=== PATIENT | male | born 2000 | race Caucasian/White ===

== ENCOUNTER 2019-08-04 12:12 | Inpatient (IN) | payer BC, OTHER ==
[~2019-08-04] VITALS: Ht 180.3 cm; Wt 73.8 kg
[2019-08-04] VITALS (11 sets, daily range): BP systolic 69–119; BP diastolic 35–62
[2019-08-04] MEDS ORDERED: SODIUM BICARB ADULT 8.4% 50 MEQ/50 ML DISP.SYRIN. IV STA (12:13)
[2019-08-04] MEDS ORDERED: DEXTROSE 50% 25 GM / 50ML DISP.SYRIN. IV PRN ×2 (13:00→13:15)
--- NOTE | 2019-08-04 13:03 | RAD ---
EXAM: CHEST AP ONLY INDICATION: Endotracheal tube verification.. TECHNIQUE: Single view COMPARISON: None FINDINGS: Endotracheal intubation with the ET tube terminating approximately 4.8 cm above the mike. Enteric tube passes below the diaphragms, tip terminating in the gastric fundus. The heart size is normal. The great vessels appear unremarkable. There is no hilar or mediastinal mass. Lungs show bilateral near confluent ill-defined airspace opacities with relative sparing of the bilateral lung apices. There is no pleural effusion or pneumothorax. There are no significant osseous abnormalities. IMPRESSION: 1. Bilateral airspace opacities with satisfactory endotracheal intubation, ET tube terminating 4.8 cm above the mike. Enteric tube also appears in good position in the gastric fundus. Electronically signed by: Geovanni Arevalo MD (08/04/2019 12:59 PM) [id number]
[2019-08-04] MEDS: IV DEXTROSE 5% 1,000 ML IV SCH ×2 (13:15→21:23)
[2019-08-04 13:20] LABS: BASE EXCESS ABG -4 mmol/L (-3-3); HCO3 ABG 24 mmol/L (21-28); PCO2 ABG 54 mmHg (35-46); SAT O2 ABG 84 % (92-99)
[2019-08-04 13:49] LABS: FIO2 ABG 100
--- NOTE | 2019-08-04 14:09 | HP ---
ADMIT DATE: 08/04/2019 HISTORY OF PRESENT ILLNESS: The patient is a 19-year-old male patient who was brought to the Emergency Room of [facility] by EMS from a local resident due to report of drug overdose. It was reported that the patient may be overdosed on Xanax. His friend who was partying with him called the police to report of drug overdose. EMS responded they came to the scene and found one person pronounced at the scene, the patient was found to be unresponsive; however, he was still breathing laborly and without palpable pulses. The patient was given 2 mg of Narcan by EMS, but he has not responded. EMS was managed to bag him with oxygen and brought him to the Emergency Room for evaluation. EMS reported en route, the patient went into pulseless electrical activity with no pulse. They managed to put an IV in him and started CPR. EMS brought him to the room with CPR in progress. The patient's upper torso covered with vomitus, food particles and coffee-ground emesis coming out from his mouth and nose. The patient was NPA and no pulses upon arrival. He was resuscitated about 15 minutes and his pulse returned and obviously was intubated, has had a central line and his x-ray showed that the patient's endotracheal tube was in place and the tip is situated about 4 cm above the level of the mike and had an NG tube is in place with the tip seen in the gastroesophageal junction. There is moderate gaseous distention of the stomach, moderate to severe bilateral perihilar pulmonary edema, and lung infiltrates are seen. No pleural effusion or pneumothorax is evident. Heart size and mediastinum and pulmonary vasculature are unremarkable. His lab work showed he has leukocytosis of 13,600, hemoglobin 17.4, hematocrit 55 and MCV was 96, and platelet count 318,000. His initial blood gases showed a pH of 6.82, pCO2 of 119, pO2 of 47, bicarbonate 20, and oxygen saturation was only 45 on FiO2 of 100%. His second blood gases showed a pH of 7.13, pCO2 of 57, pO2 of 88, bicarbonate 19 and oxygen saturation was 93% on FiO2 of 100%. His chemistry showed extreme hypernatremia and his creatinine was 2.6. His troponin was 0.685. His prothrombin time was 13.8, INR 1.3, aPTT was 39. Urinalysis was unremarkable; however, toxic screen was positive for benzodiazepine, cocaine, and cannabinoids. He was transferred to [facility] to continue with ventilatory management and obviously will start him on IV antibiotics, IV fluid. PAST MEDICAL HISTORY: Unremarkable. PAST SURGICAL HISTORY: Unobtainable. ALLERGIES: Unknown. FAMILY HISTORY AND SOCIAL HISTORY: Also unobtainable as the patient is intubated and extremely encephalopathic. According to the Emergency Room physician, his pupils were dilated and reactive about 7 mm initially and after he was intubated it became reactive and by the time I saw him in the [facility] there were pinpoint pupils. PHYSICAL EXAMINATION: GENERAL: When I examined him, he looked well and was clearly in no apparent respiratory distress. No pallor, jaundice, cyanosis or thyromegaly. No jugular venous distention. No lower limb edema. VITAL SIGNS: His heart rate on arrival to the Emergency Room of [facility] was 96, blood pressure was 149/85, temperature was 97.4, and respiratory rate was 20, and oxygen saturation was 98% on the vent. HEAD, EYES, EARS, NOSE AND THROAT: Showed normocephalic, atraumatic. He has orotracheal in place. He has also an orogastric tube in place. NECK: Supple. HEART: Showed normal first and second heart sounds. No gallop or murmur. CHEST: Clear to auscultation. No crepitation or rhonchi. ABDOMEN: Distended, soft, nontender. NEUROLOGIC: He is Sugey coma scale of 3. LABORATORY DATA: His lab work showed that his white cell count was 13,600, hemoglobin 17, hematocrit 55, MCV 96, and platelet count 318,000. His prothrombin time, INR and aPTT are slightly elevated. His chemistry showed a serum sodium 152, potassium 4.8, chloride 108, bicarbonate 28, anion gap of 15, BUN 16, creatinine 2.6, estimated GFR was 31 mL per minute. His glucose was 89, calcium was 9.2, magnesium was 2.9. Total bilirubin, AST, ALT, alkaline phosphatase were normal. His CK was 174. Troponin was high at 0.685. Total protein was 5, albumin was 2.8. Urinalysis was unremarkable. The urine was cloudy yellow with a pH of 5, specific gravity of 1.030. There was small amount of protein, large amount of glucose. The urine was negative for ketones, blood, nitrite and bilirubin, negative for leukocyte esterase, 1-2 rbc's, 1-4 wbc's and very few bacteria. His toxic screen was positive for benzodiazepine, cocaine, cannabinoids, negative for alcohol, amphetamine with amphetamine barbiturate, opiates and methadone. IMAGING: His chest x-ray showed that the endotracheal tube is in place and the tip is situated 4 cm above the level of the mike. NG tube is in place and the tip was seen at the gastroesophageal junction. There is moderate gaseous distention of the stomach, moderate to severe bilateral perihilar pulmonary edema and lung infiltrates are seen. No pleural effusion or pneumothorax is evident. Heart size and mediastinum and pulmonary vasculature is unremarkable. ASSESSMENT AND PLAN: In summary, this is a 19-year-old who was admitted with acute respiratory failure, hypoxic, hypercapnic, he also sustained outside of the hospital cardiac arrest and was in pulseless electrical activity as polysubstance abuse, acute kidney injury, aspiration pneumonia and he has also large amount of glucose in his urine raising the possibility that he might also be diabetic. My plan is to repeat all his lab work here including his blood gases, CBC, CMP, lactic acid and procalcitonin and I have consulted the associate property manager, Infectious Disease. I will start him empirically on IV antibiotic in the form of Zosyn and vancomycin or Zyvox given his impaired kidney function. RACHEL PAYNE MD DR: EDITH/chauncey JOB#: [id number] / [id number]
[2019-08-04 14:56] LABS: HEMATOCRIT 51.9 % (39.0-53.0); HEMOGLOBIN 17.3 g/dL (13.0-17.5); RED BLOOD COUNT 5.73 x10^6/uL (4.30-5.70); RED CELL DISTRIBUTION WIDTH 13.6 % (11.5-14.5); WHITE BLOOD COUNT 3.5 x10^3/uL (4.0-11.0)
[2019-08-04 15:17] LABS: GFR 42.8; POTASSIUM 4.7 mmol/L (3.5-5.1)
[2019-08-04 15:23] LABS: ALBUMIN 2.4 g/dL (3.4-5.0); ALBUMIN/GLOBULIN RATIO 1.3 (1.0-1.7); TOTAL BILIRUBIN 0.3 mg/dL (0.2-1.0); TOTAL PROTEIN 4.3 g/dL (6.4-8.2)
[2019-08-04] MEDS: MEROPENEM 500 MG in IV NORMAL SALINE 50ML 50 ML IV SCH ×2 (15:26→21:22)
--- NOTE | 2019-08-04 15:31 | CONS ---
DATE OF CONSULTATION: PULMONARY CONSULTATION ATTENDING PHYSICIAN: Dr. Link. REASON FOR CONSULTATION: Respiratory arrest, drug overdose, likely anoxic encephalopathy. HISTORY OF PRESENT ILLNESS: The patient is a 19-year-old who has history of substance abuse including marijuana. He was brought into the hospital after EMS was called where they found one person at the scene. The patient was still breathing laborly and without pulses. He received 2 mg of Narcan by EMS, but did not respond. He was bagged with oxygen and brought to the Emergency Room. The patient went into PEA arrest. He received CPR, which was prolonged. The patient had his upper body covered with vomitus and food particles and coffee-ground emesis. The patient had no pulses on arrival. He was resuscitated after about 15 minutes and has had return of circulation. His chest x-ray showed diffuse bilateral perihilar infiltrates with no significant pleural effusions. He was very acidotic at [place]. I was told that pH of 6.8 and a pCO2 was high. His ABGs which were done here showed a pH of 7.28, pCO2 of 54 and a pO2 which was not detected by the ABG. Saturation of 92%. The patient is currently on assist control, rate of 24, tidal volume 500 and a PEEP of 10, which I have just increased to 12. His urine output has decreased. He received almost 3.5 liters of fluids. His glucose was 47, now 76. He is on low dose Levophed as well. His mother is at the bedside who gave much of the history. PAST MEDICAL HISTORY: History of substance abuse. PAST SURGICAL HISTORY: None. ALLERGIES: None that were recorded. MEDICATIONS: Reviewed as listed in the MRAD including meropenem and Zyvox. SOCIAL HISTORY: History of marijuana use. PHYSICAL EXAMINATION: GENERAL: He is intubated and sedated. HEENT: His pupils are small and sluggish to react. He does have spontaneous respirations and does have a gag. LUNGS: With few rhonchi anteriorly. CARDIOVASCULAR: With a regular rate. ABDOMEN: Soft. EXTREMITIES: With no pitting edema. LABORATORY DATA: Reviewed. ABG discussed in my history of present illness. His labs from [facility] were reviewed. Labs at our facility are pending. IMPRESSION: 1. Acute hypoxic respiratory failure secondary to respiratory arrest from drug overdose and highly suspected aspiration pneumonia/ ALI/ARDS with severe hypoxia. 2. Drug overdose including cocaine, marijuana and Xanax. 3. Highly suspected anoxic brain injury. The patient is clinically not brain . Has preserved brain stem reflexes. 4. Highly suspected aspiration pneumonia contributing to severe hypoxia. 5. Decreased urine output and acute kidney injury. 6. Shock. Status post fluid resuscitation. RECOMMENDATIONS: 1. We will continue with present assist control mode, 100% FiO2. I have increased the PEEP to 12. 2. Follow ABGs and make necessary adjustments. 3. Continue broad-spectrum antibiotics, Zyvox and meropenem. Follow ID recommendations. 4. Monitor urine output. Status post fluid resuscitation. 5. Stress ulcer and DVT prophylaxis. 6. Once the patient's oxygenation status is stable, we will consider doing CT of the head. 7. Neurology consultation. 8. This patient likely has anoxic encephalopathy. We will make that assessment once other diagnoses are excluded. 9. I have discussed with the patient's mother in detail. Discussed with RN and RT. Critical care time 40 minutes. JEAN PIERRE TUTTLE MD DR: FILOMENA/chauncey JOB#: [id number] / [id number] MEIR
[2019-08-04] MEDS: MIDAZOLAM 100mg/100ml NS BAG 100 ML IV PRN (15:35)
[2019-08-04 16:37] LABS: BASE EXCESS ABG -3 mmol/L (-3-3); HCO3 ABG 25 mmol/L (21-28); PCO2 ABG 55 mmHg (35-46); PO2 ABG 69 mmHg (85-108); SAT O2 ABG 93 % (92-99)
[2019-08-04 16:39] LABS: FIO2 ABG 100
[2019-08-04] MEDS ORDERED: FUROSEMIDE 20 MG/2 ML VIAL. IVP ONE (17:00)
[2019-08-04] MEDS: FAMOTIDINE 20 MG/2 ML VIAL IVP SCH (21:17)
[2019-08-04] MEDS: HEPARIN for SUB-Q USE 5,000 UNIT/ML VIAL. SQ SCH (21:19)
[2019-08-04] MEDS: NOREPINEPHRINE VIAL 8 MG in IV DEXTROSE 5% 250 ML IV PRN (22:48)
--- NOTE | 2019-08-04 23:50 | NUR ---
Pt assessed and this RN observed that neuro status was very diminished. Corneal reflex absent BL, painful stimuli unable to elicit response from upper and lower extremities. Cough and gag reflexes were very diminished. BL pupils were very sluggish and rated as 1. Provider paged at 2138, provider paged back at 2140. Provider updated on pt status and current labs and medical interventions as well as vital signs. Provider ordered CK to be tested in the AM with morning labs. Provider approved of this RN consulting neurology provider Dr. Miller. Neurology provider paged at 2151, provider paged back at 2156. Neurology provider updated on neuro assessment findings of pt. Provider acknowledged RN's findings, and asked if this RN could see what the findings were from the CT that was supposed to be performed. This RN informed the provider that this RN could not find evidence of a CT scan, provider informed this RN that he would look into it. Neurology called back and told this RN that he looked in the system and saw that there was never a CT of the pt's head done, like he originally requested. Provider was unsure of how to navigate obtaining a CT now due to the patients high demanding respiratory situation. This RN told provider that he would confer with RT to devise a plan and investigate options. RT paged at 2213, and RT advised that bagging the pt with a BVM attached to a peep valve would work the best. CT paged at 2218 and informed of plan to have CT performed for pt, CT acknowledged. Pt taken to CT at 2330 accompanied by two MEDIA PRODUCTION OPERATOR's and one RT. CT for pt undergone without issue, no issues during transport, VSS to and from destination. Pt settled back into CVICU room 270 and attached to monitor and equipment, will continue to assess and monitor for any additional changes in pt condition.
--- NOTE | 2019-08-04 23:51 | RAD ---
RS Compliance Statement: One or more of the following individualized dose reduction techniques were utilized for this examination: 1. Automated exposure control 2. Adjustment of the mA and/or kV according to patient size 3. Use of iterative reconstruction technique CT HEAD WITHOUT CONTRAST History: Altered mental status, code, overdose. Comparison: None. Procedure: Axial images are obtained of the head from the skull base through the vertex without IV contrast. Findings: The ventricles and sulci are normal for the patient's age. No mass-effect, midline shift, hemorrhage, extra-axial fluid collection, or obvious acute infarction is identified. Basilar cisterns are patent. Bone windows demonstrate no acute calvarial abnormality. There is severe mucosal thickening of the bilateral maxillary sinuses. There is an air-fluid level in the left maxillary sinus. There is severe mucosal thickening of the sphenoid sinuses. Mild mucosal thickening of the posterior ethmoid sinuses. Mastoid air cells are well aerated. IMPRESSION: 1. No acute intracranial abnormality. 2. Paranasal sinus disease. Left maxillary sinus air-fluid level suggests acute sinusitis. Electronically signed by: Cyril Bates MD (08/04/2019 11:48 PM) [id number]
[2019-08-05] VITALS (24 sets, daily range): BP systolic 82–179; BP diastolic 51–100
[2019-08-05] MEDS: MEROPENEM 500 MG in IV NORMAL SALINE 50ML 50 ML IV SCH ×4 (06:12→23:26)
[2019-08-05] MEDS: HEPARIN for SUB-Q USE 5,000 UNIT/ML VIAL. SQ SCH ×3 (06:20→21:32)
[2019-08-05 06:27] LABS: BASO % 0 % (0-3); EOS % 0 % (0-3); HEMATOCRIT 48.4 % (39.0-53.0); HEMOGLOBIN 16.1 g/dL (13.0-17.5); LYMPH # 1.4 x10^3/uL (1.0-4.8); LYMPH % 7 % (24-48); MEAN CORPUSCULAR HEMOGLOBIN 30 pg (25-35); MEAN CORPUSCULAR HGB CONC 33 g/dL (31-37); MEAN CORPUSCULAR VOLUME 90 fL (79-100); MONO # 1.3 x10^3/uL (0.0-1.1); MONO % 7 % (0-9); NEUT # 16.3 x10^3/uL (1.8-7.7); NEUT % 86 % (31-73); PLATELET COUNT 210 x10^3/uL (140-400); RED BLOOD COUNT 5.38 x10^6/uL (4.30-5.70); RED CELL DISTRIBUTION WIDTH 13.5 % (11.5-14.5); WHITE BLOOD COUNT 18.9 x10^3/uL (4.0-11.0)
[2019-08-05 06:42] LABS: CALCIUM 8.1 mg/dL (8.5-10.1); CREATININE 1.8 mg/dL (0.7-1.3); GFR 48.3; MAGNESIUM 1.3 mg/dL (1.8-2.4); PHOSPHORUS 5.1 mg/dL (2.6-4.7); POTASSIUM 4.9 mmol/L (3.5-5.1)
--- NOTE | 2019-08-05 07:06 | PDOC ---
PULMONARY PROGRESS NOTES Subjective remains on vent @ 100%, PEEP 12 remains on low dose levophed nursing reports no overnight concerns Nursing reports minimal movement of bilateral toes withdraws to painful stimuli has gag Vitals Vital Signs Date Time Temp Pulse Resp B/P (MAP) Pulse Ox O2 Delivery O2 Flow Rate FiO2 08/05/19 05:58 99 Ventilator 08/05/19 03:00 82 24 121/56 (77) 08/05/19 00:00 99.8 99.8 Comments intubated/ sedated Lungs: Clear Cardiovascular: S1 Abdomen: Soft Neuro Exam: Alert Extremities: No Edema Skin: Warm Labs Laboratory Tests Test 08/04/19 13:10 08/04/19 13:15 08/04/19 13:30 08/04/19 14:00 Glucose (Fingerstick) 47 mg/dL (70-99) 78 mg/dL (70-99) O2 Saturation 84 % (92-99) Arterial Blood pH 7.28 (7.35-7.45) Arterial Blood pCO2 at Patient Temp 54 mmHg (35-46) Arterial Blood HCO3 24 mmol/L (21-28) Arterial Blood Base Excess -4 mmol/L (-3-3) FiO2 100 White Blood Count 3.5 x10^3/uL (4.0-11.0) Red Blood Count 5.73 x10^6/uL (4.30-5.70) Hemoglobin 17.3 g/dL (13.0-17.5) Hematocrit 51.9 % (39.0-53.0) Mean Corpuscular Volume 91 fL (79-100) Mean Corpuscular Hemoglobin 30 pg (25-35) Mean Corpuscular Hemoglobin Concent 33 g/dL (31-37) Red Cell Distribution Width 13.6 % (11.5-14.5) Platelet Count 240 x10^3/uL (140-400) Sodium Level 145 mmol/L (136-145) Potassium Level 4.7 mmol/L (3.5-5.1) Chloride Level 108 mmol/L (98-107) Carbon Dioxide Level 33 mmol/L (21-32) Anion Gap 4 (6-14) Blood Urea Nitrogen 19 mg/dL (8-26) Creatinine 2.0 mg/dL (0.7-1.3) Estimated GFR (Cockcroft-Gault) 42.8 BUN/Creatinine Ratio 10 (6-20) Glucose Level 101 mg/dL (70-99) Calcium Level 8.0 mg/dL (8.5-10.1) Total Bilirubin 0.3 mg/dL (0.2-1.0) Aspartate Amino Transf (AST/SGOT) 68 U/L (15-37) Alanine Aminotransferase (ALT/SGPT) 53 U/L (16-63) Alkaline Phosphatase 72 U/L (46-116) Lactate Dehydrogenase 344 U/L (85-227) Troponin I Quantitative 1.645 ng/mL (0.000-0.055) Total Protein 4.3 g/dL (6.4-8.2) Albumin 2.4 g/dL (3.4-5.0) Albumin/Globulin Ratio 1.3 (1.0-1.7) Procalcitonin 12.04 ng/mL (0.00-0.10) Test 08/04/19 16:32 08/05/19 06:05 08/05/19 06:09 O2 Saturation 93 % (92-99) Arterial Blood pH 7.28 (7.35-7.45) Arterial Blood pCO2 at Patient Temp 55 mmHg (35-46) Arterial Blood pO2 at Patient Temp 69 mmHg (85-108) Arterial Blood HCO3 25 mmol/L (21-28) Arterial Blood Base Excess -3 mmol/L (-3-3) FiO2 100 White Blood Count 18.9 x10^3/uL (4.0-11.0) Red Blood Count 5.38 x10^6/uL (4.30-5.70) Hemoglobin 16.1 g/dL (13.0-17.5) Hematocrit 48.4 % (39.0-53.0) Mean Corpuscular Volume 90 fL (79-100) Mean Corpuscular Hemoglobin 30 pg (25-35) Mean Corpuscular Hemoglobin Concent 33 g/dL (31-37) Red Cell Distribution Width 13.5 % (11.5-14.5) Platelet Count 210 x10^3/uL (140-400) Neutrophils (%) (Auto) 86 % (31-73) Lymphocytes (%) (Auto) 7 % (24-48) Monocytes (%) (Auto) 7 % (0-9) Eosinophils (%) (Auto) 0 % (0-3) Basophils (%) (Auto) 0 % (0-3) Neutrophils # (Auto) 16.3 x10^3/uL (1.8-7.7) Lymphocytes # (Auto) 1.4 x10^3/uL (1.0-4.8) Monocytes # (Auto) 1.3 x10^3/uL (0.0-1.1) Eosinophils # (Auto) 0.0 x10^3/uL (0.0-0.7) Basophils # (Auto) 0.0 x10^3/uL (0.0-0.2) Sodium Level 139 mmol/L (136-145) Potassium Level 4.9 mmol/L (3.5-5.1) Chloride Level 101 mmol/L (98-107) Carbon Dioxide Level 32 mmol/L (21-32) Anion Gap 6 (6-14) Blood Urea Nitrogen 17 mg/dL (8-26) Creatinine 1.8 mg/dL (0.7-1.3) Estimated GFR (Cockcroft-Gault) 48.3 Glucose Level 111 mg/dL (70-99) Calcium Level 8.1 mg/dL (8.5-10.1) Phosphorus Level 5.1 mg/dL (2.6-4.7) Magnesium Level 1.3 mg/dL (1.8-2.4) Creatine Kinase 263 U/L (39-308) Troponin I Quantitative 2.485 ng/mL (0.000-0.055) Glucose (Fingerstick) 115 mg/dL (70-99) Laboratory Tests Test 08/04/19 13:10 08/04/19 13:15 08/04/19 13:30 08/04/19 14:00 Glucose (Fingerstick) 47 mg/dL (70-99) 78 mg/dL (70-99) O2 Saturation 84 % (92-99) Arterial Blood pH 7.28 (7.35-7.45) Arterial Blood pCO2 at Patient Temp 54 mmHg (35-46) Arterial Blood HCO3 24 mmol/L (21-28) Arterial Blood Base Excess -4 mmol/L (-3-3) FiO2 100 White Blood Count 3.5 x10^3/uL (4.0-11.0) Red Blood Count 5.73 x10^6/uL (4.30-5.70) Hemoglobin 17.3 g/dL (13.0-17.5) Hematocrit 51.9 % (39.0-53.0) Mean Corpuscular Volume 91 fL (79-100) Mean Corpuscular Hemoglobin 30 pg (25-35) Mean Corpuscular Hemoglobin Concent 33 g/dL (31-37) Red Cell Distribution Width 13.6 % (11.5-14.5) Platelet Count 240 x10^3/uL (140-400) Sodium Level 145 mmol/L (136-145) Potassium Level 4.7 mmol/L (3.5-5.1) Chloride Level 108 mmol/L (98-107) Carbon Dioxide Level 33 mmol/L (21-32) Anion Gap 4 (6-14) Blood Urea Nitrogen 19 mg/dL (8-26) Creatinine 2.0 mg/dL (0.7-1.3) Estimated GFR (Cockcroft-Gault) 42.8 BUN/Creatinine Ratio 10 (6-20) Glucose Level 101 mg/dL (70-99) Calcium Level 8.0 mg/dL (8.5-10.1) Total Bilirubin 0.3 mg/dL (0.2-1.0) Aspartate Amino Transf (AST/SGOT) 68 U/L (15-37) Alanine Aminotransferase (ALT/SGPT) 53 U/L (16-63) Alkaline Phosphatase 72 U/L (46-116) Lactate Dehydrogenase 344 U/L (85-227) Troponin I Quantitative 1.645 ng/mL (0.000-0.055) Total Protein 4.3 g/dL (6.4-8.2) Albumin 2.4 g/dL (3.4-5.0) Albumin/Globulin Ratio 1.3 (1.0-1.7) Procalcitonin 12.04 ng/mL (0.00-0.10) Test 08/04/19 16:32 08/05/19 06:05 08/05/19 06:09 O2 Saturation 93 % (92-99) Arterial Blood pH 7.28 (7.35-7.45) Arterial Blood pCO2 at Patient Temp 55 mmHg (35-46) Arterial Blood pO2 at Patient Temp 69 mmHg (85-108) Arterial Blood HCO3 25 mmol/L (21-28) Arterial Blood Base Excess -3 mmol/L (-3-3) FiO2 100 White Blood Count 18.9 x10^3/uL (4.0-11.0) Red Blood Count 5.38 x10^6/uL (4.30-5.70) Hemoglobin 16.1 g/dL (13.0-17.5) Hematocrit 48.4 % (39.0-53.0) Mean Corpuscular Volume 90 fL (79-100) Mean Corpuscular Hemoglobin 30 pg (25-35) Mean Corpuscular Hemoglobin Concent 33 g/dL (31-37) Red Cell Distribution Width 13.5 % (11.5-14.5) Platelet Count 210 x10^3/uL (140-400) Neutrophils (%) (Auto) 86 % (31-73) Lymphocytes (%) (Auto) 7 % (24-48) Monocytes (%) (Auto) 7 % (0-9) Eosinophils (%) (Auto) 0 % (0-3) Basophils (%) (Auto) 0 % (0-3) Neutrophils # (Auto) 16.3 x10^3/uL (1.8-7.7) Lymphocytes # (Auto) 1.4 x10^3/uL (1.0-4.8) Monocytes # (Auto) 1.3 x10^3/uL (0.0-1.1) Eosinophils # (Auto) 0.0 x10^3/uL (0.0-0.7) Basophils # (Auto) 0.0 x10^3/uL (0.0-0.2) Sodium Level 139 mmol/L (136-145) Potassium Level 4.9 mmol/L (3.5-5.1) Chloride Level 101 mmol/L (98-107) Carbon Dioxide Level 32 mmol/L (21-32) Anion Gap 6 (6-14) Blood Urea Nitrogen 17 mg/dL (8-26) Creatinine 1.8 mg/dL (0.7-1.3) Estimated GFR (Cockcroft-Gault) 48.3 Glucose Level 111 mg/dL (70-99) Calcium Level 8.1 mg/dL (8.5-10.1) Phosphorus Level 5.1 mg/dL (2.6-4.7) Magnesium Level 1.3 mg/dL (1.8-2.4) Creatine Kinase 263 U/L (39-308) Troponin I Quantitative 2.485 ng/mL (0.000-0.055) Glucose (Fingerstick) 115 mg/dL (70-99) Comments CT head - 08/04/2019 IMPRESSION: 1. No acute intracranial abnormality. 2. Paranasal sinus disease. Left maxillary sinus air-fluid level suggests acute sinusitis. CXR-- 08/05/2019 IMPRESSION: 1. Bilateral airspace opacities with satisfactory endotracheal intubation, ET tube terminating 4.8 cm above the mike. Enteric tube also appears in good position in the gastric fundus. Impression . IMPRESSION: 1. Acute hypoxic respiratory failure secondary to respiratory arrest from drug overdose and highly suspected aspiration pneumonia/ ALI/ARDS with severe hypoxia. 2. Drug overdose including cocaine, marijuana and Xanax. 3. Highly suspected anoxic brain injury. The patient is clinically not brain . Has preserved brain stem reflexes. 4. Highly suspected aspiration pneumonia contributing to severe hypoxia. 5. Decreased urine output and acute kidney injury--improving 6. Shock. Status post fluid resuscitation. 7. ct head with no major events Plan . RECOMMENDATIONS: 1. We will continue with present assist control mode, 100% FiO2/ PEEP of 12, ABG reviewed and reduced FI02 to 80% and PEEP 10 2. Follow ABGs and make necessary adjustments. 3. Continue broad-spectrum antibiotics, Zyvox. Follow ID recommendations. 4. Monitor urine output. Status post fluid resuscitation. 5. reviewed CT head . 6. neurology following - 7. This patient likely has anoxic encephalopathy. We will make that assessment once other diagnoses are excluded. DVT/GI PPX: Heparin/pepcid Discussed with RN and RT./ Dr Link Critical care time 30 minutes. JEAN PIERRE TUTTLE MD August 05, 2019 07:06
[2019-08-05 07:39] LABS: BASE EXCESS ABG 3 mmol/L (-3-3); HCO3 ABG 28 mmol/L (21-28); PCO2 ABG 47 mmHg (35-46); PO2 ABG 321 mmHg (85-108); SAT O2 ABG 99 % (92-99)
[2019-08-05 07:47] LABS: FIO2 ABG 100
[2019-08-05] MEDS: NOREPINEPHRINE VIAL 8 MG in IV DEXTROSE 5% 250 ML IV PRN (07:48)
[2019-08-05] MEDS ORDERED: MAGNESIUM SULFATE 2GM 50 ML IV ONE (08:00)
[2019-08-05] MEDS: FAMOTIDINE 20 MG/2 ML VIAL IVP SCH ×2 (08:32→21:15)
--- NOTE | 2019-08-05 09:43 | RAD ---
EXAM: CHEST AP ONLY INDICATION: Intubated. Overdose.. TECHNIQUE: Single view COMPARISON: Chest x-ray 08/04/2019 FINDINGS: Patient remains intubated with the ET tube terminating 5 cm above the mike. Enteric tube passes below the diaphragms, looped in the proximal stomach similar to prior. The heart size is normal. The great vessels appear unremarkable. There is no hilar or mediastinal mass. The lungs show interval improvement in bilateral airspace opacities without complete resolution. There is no pleural effusion or pneumothorax. There are no significant osseous abnormalities. IMPRESSION: Stable intubation with improving bilateral airspace opacities. Electronically signed by: Geovanni Arevalo MD (08/05/2019 9:40 AM) [id number]
[2019-08-05 09:49] LABS: % ATYL 1 % (0-0); % BANDS 44 % (0-9); % LYMPHS 9 % (24-48); % METAS 3 % (0-0); % MONOS 8 % (0-10); % SEGS 35 % (35-66); PLT ESTIMATE ADEQUATE (ADEQUATE)
--- NOTE | 2019-08-05 10:01 | PN ---
DATE: 08/05/2019 SUBJECTIVE: The patient continues to be intubated, mechanical ventilated. He is off of sedation. He is withdrawing to pain, his pupils are dilated, has gag reflex. OBJECTIVE: GENERAL: On examining him, there was no pallor, jaundice, cyanosis, or thyromegaly. No jugular venous distension. No limb edema. VITAL SIGNS: His heart rate was 73, blood pressure was 121/69, temperature 99.5, respiratory rate was 23, and oxygen saturation was 98% on FiO2 of 80%. HEAD, EYES, EARS, NOSE AND THROAT: Showed normocephalic, atraumatic. He has orotracheal and orogastric tube in place. NECK: Supple. HEART: Showed normal first and second heart sounds. No gallop, rub or murmur. CHEST: Shows central trachea, equal bilateral expansion, air entry, vesicular sounds. Crepitation bilaterally. No rhonchi. ABDOMEN: Distended, soft, nontender. NEUROLOGIC: He is off of sedation. He withdraws to painful stimuli. His pupils are dilated and he has gag reflex. His intake was incompletely recorded, output was 2560. LABORATORY DATA: As of this morning, his blood gases showed a pH of 7.39, pCO2 of 47, pO2 of 321, bicarbonate 28, and oxygen saturation 100%. His white cell count is up to 18,900, hemoglobin 16, hematocrit 48, MCV 90, platelet count of 210,000. His chemistry showed a serum sodium 139, potassium 4.9, chloride 101, bicarbonate 32, anion gap of 6, BUN 17, creatinine 1.8. His estimated GFR was 48 mL per minute, his glucose 111, calcium was 8.1, phosphorus 5.1, magnesium was 1.3. CK was 163. His troponin is up to 2.485 ng/mL. His procalcitonin was 12.04. ASSESSMENT: 1. Acute hypoxic respiratory failure secondary to respiratory arrest from drug overdose and highly suspected aspiration pneumonia, acute respiratory distress syndrome, severe hypoxia. 2. Drug overdose including cocaine, marijuana, and Xanax. 3. Anoxic brain injury. 4. Acute kidney injury that is improving. His creatinine came down from 2 to 1.8. 5. Hypernatremia, resolved. His serum sodium came down from 152 to 139. 6. Elevated troponin, most likely due to demand ischemia. 7. Sepsis, likely due to aspiration pneumonia with elevated procalcitonin and leukocytosis. PLAN: Obviously to continue with mechanical ventilation and wean as tolerated. Continue with IV antibiotic in the form of meropenem and Zyvox. Continue with DVT and GI prophylaxis. He has hypomagnesemia for which he is receiving magnesium sulfate. We did consult the neurologist for evaluation. RACHEL PAYNE MD DR: EDITH/chauncey JOB#: [id number] / [id number]
[2019-08-05 10:03] LABS: BILIRUBIN,URINE NEGATIVE (NEG); CLARITY,URINE CLEAR; COLOR,URINE YELLOW; NITRITE,URINE NEGATIVE (NEG); PROTEIN,URINE NEGATIVE (NEG-TRACE)
--- NOTE | 2019-08-05 10:10 | CONS ---
DATE OF CONSULTATION: 08/05/2019 REFERRING PHYSICIAN: Clint Link MD REASON FOR CONSULTATION: Antibiotic management, drug overdose, possible aspiration pneumonia. HISTORY OF PRESENT ILLNESS: This is a 19-year-old male with history of substance dependence, first was brought to ER of [facility] by EMS after the patient's friend reported drug overdose with possibly Xanax. The patient was found unresponsive with labored breathing without palpable pulse. He underwent CPR as the patient went into pulseless electrical activity on his way to the ER, also received Narcan. The patient's upper torso was covered with vomitus coffee-ground emesis. He underwent intubation and central line placement. There is report of one person pronounced at the scene. Chest x-ray showed bilateral diffuse perihilar infiltrate. His pH was 6.8, CO2 was very high. The patient required IV fluid resuscitation. Urine output was decreased. Glucose was 47. He was started on Levophed. Per team, the patient also had used cocaine and uses marijuana on a regular basis. Here, his WBC was ____, hemoglobin 17.3, hematocrit 51.9 and platelets 240. Creatinine was 2.0, AST 68, ALT 53 and alkaline phosphatase 72. Lactate dehydrogenase 344. Albumin 2.4. He was started on linezolid and meropenem. ID consult has been requested for antibiotic management. The patient currently remains intubated. On low dose Levophed, nursing reported no overnight concerns. There is minimal movement of bilateral toes upon stimuli. PAST MEDICAL HISTORY: History of substance abuse. ALLERGIES: No known drug allergies recorded. CURRENT MEDICATIONS: Meropenem and Zyvox. Other medications reviewed in medication list. FAMILY HISTORY: As per HPI. SOCIAL HISTORY: Positive for marijuana use, reported use of cocaine. PHYSICAL EXAMINATION: VITAL SIGNS: T-max 99.9, current temperature 99.5, pulse 73, respiratory rate 23, blood pressure 121/69, oxygen saturation 98% on 100% FiO2. GENERAL: Intubated, sedated. HEENT: Anicteric. ETT enteric tube. NECK: Supple. LUNGS: Decreased breath sound at the bases. Few rhonchi. HEART: S1, S2 regular. ABDOMEN: Soft, nontender, nondistended. Bowel sounds present. EXTREMITIES: No edema. No cyanosis. DERMATOLOGIC: Warm, dry. No generalized rash. Multiple tattoos. GENITOURINARY: Gonzalez in place. DRESS MARKER: Unable to assess, intubated. PSYCHIATRIC: Unable to assess, intubated. LABORATORY DATA: WBC 18.9, hemoglobin 16.1, hematocrit 48.4, platelets 210, neutrophils 16.3. Sodium 145, potassium 4.7, chloride 108, bicarbonate 23, BUN 19, creatinine 2.0, glucose 101 and was 47, AST 68, ALT 53, alkaline phosphatase 72. LDH 344. Total protein 4.3, albumin 2.4. IMAGING: Chest x-ray, bilateral airspace opacities. CT head; no acute intracranial abnormality, paranasal sinus disease, left maxillary sinus air fluid level suggesting acute sinusitis. IMPRESSION: 1. Acute hypoxic respiratory failure from drug overdose. 2. Status post cardiac arrest at outside hospital, PEA. 3. Bilateral pulmonary infiltrates, highly suspected aspiration pneumonia. 4. Leukocytosis. 5. Polysubstance abuse with marijuana and cocaine. 6. Drug overdose with Xanax. 7. Encephalopathy, could have component of anoxic brain injury. 8. Hypoglycemia. 9. Acute kidney injury. 10. Abnormal liver function tests. RECOMMENDATIONS: 1. Continue Zyvox and meropenem. Adjust dose of meropenem per renal function. 2. Follow up labs here. 3. Follow up cultures at [place]. 4. Neurology consulted. 5. Pulmonary team following. 6. Condition critical. 7. Discussed with RN. Thank you, Dr. Link, for consulting Infectious Disease to participate in this patient's care. If you have any questions, do not hesitate to contact me. CCT time 35 minutes. EMELI DAMON MD DR: OWEN/chauncey JOB#: [id number] / [id number] MEIR
[2019-08-05 10:33] LABS: BACTERIA,URINE FEW /HPF (0-FEW); SQUAMOUS EPITHELIAL CELL,UR FEW /LPF
[2019-08-05] MEDS: IV DEXTROSE 5% 1,000 ML IV SCH ×2 (10:40→21:14)
--- NOTE | 2019-08-05 11:47 | PDOC2 ---
CONSULT Date of Consult Date of Consult DATE: 08/05/19 TIME: 11:40 Reason for Consult Reason for Consult: Status post cardiac arrest Referring Physician Referring Physician: Dr. Link Identification/Chief Complaint Chief Complaint Status post respiratory failure and cardiac arrest Source Source: Chart review History of Present Illness Reason for Visit: The patient is a 19-year-old male who was brought to the [facility] emergency room after a reported drug overdose. Patient had a PEA cardiac arrest requiring prolonged CPR and intubation. Initial attempts of treatment with Narcan were not successful. The patient was then transferred to [place] for further evaluation and treatment. He has remained on a ventilator overnight. Troponin has increased overnight to 2.4, creatinine of 1.8 and a white count of 18.9. He has been started on IV antibiotics for presumed pneumonia and did require pressors overnight. Toxicology screen was positive for benzodiazepines, cocaine and cannabinoids. The patient has a reported history of drug use. Past Surgical History Past Surgical History: No pertinent history Family History Family History: Hypertension Social History Drugs: Cocaine, Marijuana Current Medications Current Medications Current Medications Sodium Bicarbonate (Sodium Bicarb Adult 8.4% Syr) 100 meq 1X STAT IV Last administered on 08/04/19at 12:32; Start 08/04/19 at 12:13; Stop 08/04/19 at 12:16; Status DC Meropenem 500 mg/ Sodium Chloride 50 ml @ 100 mls/hr Q8HRS IV Last administered on 08/05/19at 06:12; Start 08/04/19 at 14:00; Stop 08/05/19 at 07:44; Status DC Linezolid/Dextrose 300 ml @ 300 mls/hr Q12HR IV Last administered on 08/05/19at 08:32; Start 08/04/19 at 13:00 Dextrose (Dextrose 50%-Water Syringe) 12.5 gm PRN Q15MIN PRN IV SEE COMMENTS Last administered on 08/04/19at 13:22; Start 08/04/19 at 13:00 Dextrose 1,000 ml @ 100 mls/hr Q10H IV Last administered on 08/05/19at 10:40; Start 08/04/19 at 13:00 Dextrose (Dextrose 50%-Water Syringe) 12.5 gm PRN Q15MIN PRN IV SEE COMMENTS; Start 08/04/19 at 13:15; Status UNV Midazolam HCl 100 ml @ 0 mls/hr CONT PRN IV SEE PROTOCOL Last administered on 08/04/19at 15:35; Start 08/04/19 at 14:15 Norepinephrine Bitartrate 8 mg/ Dextrose 258 ml @ 15.267 mls/ hr CONT PRN IV PER PROTOCOL Last administered on 08/05/19at 07:48; Start 08/04/19 at 14:15 Furosemide (Lasix) 20 mg 1X ONCE IVP Last administered on 08/04/19at 16:59; Start 08/04/19 at 17:00; Stop 08/04/19 at 17:01; Status DC Heparin Sodium (Porcine) (Heparin Sodium) 5,000 unit Q8HRS SQ Last administered on 08/05/19at 06:20; Start 08/04/19 at 22:00 Famotidine (Pepcid Vial) 20 mg BID IVP Last administered on 08/05/19at 08:32; Start 08/04/19 at 21:00 Meropenem 500 mg/ Sodium Chloride 50 ml @ 100 mls/hr Q6HRS IV ; Start 08/05/19 at 12:00 Magnesium Sulfate 50 ml @ 25 mls/hr 1X ONCE IV Last administered on 08/05/19at 08:21; Start 08/05/19 at 08:00; Stop 08/05/19 at 09:59; Status DC Allergies Allergies: Coded Allergies: No Known Drug Allergies (Unverified , 08/04/19) ROS Review of System Not obtainable Physical Exam General: Other (Intubated on a ventilator) Lungs: Other (Decreased breath sounds) Heart: Regular rate Abdomen: Normal bowel sounds Vitals VITALS Vital Signs Date Time Temp Pulse Resp B/P (MAP) Pulse Ox O2 Delivery O2 Flow Rate FiO2 08/05/19 11:00 78 23 114/65 (81) 99 Ventilator 08/05/19 08:00 99.5 99.5 Labs Labs Laboratory Tests Test 08/04/19 13:10 08/04/19 13:15 08/04/19 13:30 08/04/19 14:00 Glucose (Fingerstick) 47 mg/dL (70-99) 78 mg/dL (70-99) O2 Saturation 84 % (92-99) Arterial Blood pH 7.28 (7.35-7.45) Arterial Blood pCO2 at Patient Temp 54 mmHg (35-46) Arterial Blood HCO3 24 mmol/L (21-28) Arterial Blood Base Excess -4 mmol/L (-3-3) FiO2 100 White Blood Count 3.5 x10^3/uL (4.0-11.0) Red Blood Count 5.73 x10^6/uL (4.30-5.70) Hemoglobin 17.3 g/dL (13.0-17.5) Hematocrit 51.9 % (39.0-53.0) Mean Corpuscular Volume 91 fL (79-100) Mean Corpuscular Hemoglobin 30 pg (25-35) Mean Corpuscular Hemoglobin Concent 33 g/dL (31-37) Red Cell Distribution Width 13.6 % (11.5-14.5) Platelet Count 240 x10^3/uL (140-400) Sodium Level 145 mmol/L (136-145) Potassium Level 4.7 mmol/L (3.5-5.1) Chloride Level 108 mmol/L (98-107) Carbon Dioxide Level 33 mmol/L (21-32) Anion Gap 4 (6-14) Blood Urea Nitrogen 19 mg/dL (8-26) Creatinine 2.0 mg/dL (0.7-1.3) Estimated GFR (Cockcroft-Gault) 42.8 BUN/Creatinine Ratio 10 (6-20) Glucose Level 101 mg/dL (70-99) Calcium Level 8.0 mg/dL (8.5-10.1) Total Bilirubin 0.3 mg/dL (0.2-1.0) Aspartate Amino Transf (AST/SGOT) 68 U/L (15-37) Alanine Aminotransferase (ALT/SGPT) 53 U/L (16-63) Alkaline Phosphatase 72 U/L (46-116) Lactate Dehydrogenase 344 U/L (85-227) Troponin I Quantitative 1.645 ng/mL (0.000-0.055) Total Protein 4.3 g/dL (6.4-8.2) Albumin 2.4 g/dL (3.4-5.0) Albumin/Globulin Ratio 1.3 (1.0-1.7) Procalcitonin 12.04 ng/mL (0.00-0.10) Test 08/04/19 16:32 08/05/19 06:05 08/05/19 06:09 08/05/19 07:33 O2 Saturation 93 % (92-99) 99 % (92-99) Arterial Blood pH 7.28 (7.35-7.45) 7.39 (7.35-7.45) Arterial Blood pCO2 at Patient Temp 55 mmHg (35-46) 47 mmHg (35-46) Arterial Blood pO2 at Patient Temp 69 mmHg (85-108) 321 mmHg (85-108) Arterial Blood HCO3 25 mmol/L (21-28) 28 mmol/L (21-28) Arterial Blood Base Excess -3 mmol/L (-3-3) 3 mmol/L (-3-3) FiO2 100 100 White Blood Count 18.9 x10^3/uL (4.0-11.0) Red Blood Count 5.38 x10^6/uL (4.30-5.70) Hemoglobin 16.1 g/dL (13.0-17.5) Hematocrit 48.4 % (39.0-53.0) Mean Corpuscular Volume 90 fL (79-100) Mean Corpuscular Hemoglobin 30 pg (25-35) Mean Corpuscular Hemoglobin Concent 33 g/dL (31-37) Red Cell Distribution Width 13.5 % (11.5-14.5) Platelet Count 210 x10^3/uL (140-400) Neutrophils (%) (Auto) 86 % (31-73) Lymphocytes (%) (Auto) 7 % (24-48) Monocytes (%) (Auto) 7 % (0-9) Eosinophils (%) (Auto) 0 % (0-3) Basophils (%) (Auto) 0 % (0-3) Neutrophils # (Auto) 16.3 x10^3/uL (1.8-7.7) Lymphocytes # (Auto) 1.4 x10^3/uL (1.0-4.8) Monocytes # (Auto) 1.3 x10^3/uL (0.0-1.1) Eosinophils # (Auto) 0.0 x10^3/uL (0.0-0.7) Basophils # (Auto) 0.0 x10^3/uL (0.0-0.2) Segmented Neutrophils % 35 % (35-66) Band Neutrophils % 44 % (0-9) Lymphocytes % 9 % (24-48) Atypical Lymphocytes % (Manual) 1 % (0-0) Monocytes % 8 % (0-10) Metamyelocytes % 3 % (0-0) Platelet Estimate Adequate (ADEQUATE) Large Platelets Few Sodium Level 139 mmol/L (136-145) Potassium Level 4.9 mmol/L (3.5-5.1) Chloride Level 101 mmol/L (98-107) Carbon Dioxide Level 32 mmol/L (21-32) Anion Gap 6 (6-14) Blood Urea Nitrogen 17 mg/dL (8-26) Creatinine 1.8 mg/dL (0.7-1.3) Estimated GFR (Cockcroft-Gault) 48.3 Glucose Level 111 mg/dL (70-99) Calcium Level 8.1 mg/dL (8.5-10.1) Phosphorus Level 5.1 mg/dL (2.6-4.7) Magnesium Level 1.3 mg/dL (1.8-2.4) Creatine Kinase 263 U/L (39-308) Troponin I Quantitative 2.485 ng/mL (0.000-0.055) Glucose (Fingerstick) 115 mg/dL (70-99) Test 08/05/19 09:50 Urine Collection Type U cath Urine Color Yellow Urine Clarity Clear Urine pH 7.0 (<5.0-8.0) Urine Specific Moose 1.020 (1.000-1.030) Urine Protein Negative mg/dL (NEG-TRACE) Urine Glucose (UA) Negative mg/dL (NEG) Urine Ketones (Stick) Negative mg/dL (NEG) Urine Blood Negative (NEG) Urine Nitrite Negative (NEG) Urine Bilirubin Negative (NEG) Urine Urobilinogen Dipstick 1.0 mg/dL (0.2 mg/dL) Urine Leukocyte Esterase Negative (NEG) Urine RBC 6-10 /HPF (0-2) Urine WBC 1-4 /HPF (0-4) Urine Squamous Epithelial Cells Few /LPF Urine Bacteria Few /HPF (0-FEW) Urine Mucus Slight /LPF Laboratory Tests Test 08/04/19 13:10 08/04/19 13:15 08/04/19 13:30 08/04/19 14:00 Glucose (Fingerstick) 47 mg/dL (70-99) 78 mg/dL (70-99) O2 Saturation 84 % (92-99) Arterial Blood pH 7.28 (7.35-7.45) Arterial Blood pCO2 at Patient Temp 54 mmHg (35-46) Arterial Blood HCO3 24 mmol/L (21-28) Arterial Blood Base Excess -4 mmol/L (-3-3) FiO2 100 White Blood Count 3.5 x10^3/uL (4.0-11.0) Red Blood Count 5.73 x10^6/uL (4.30-5.70) Hemoglobin 17.3 g/dL (13.0-17.5) Hematocrit 51.9 % (39.0-53.0) Mean Corpuscular Volume 91 fL (79-100) Mean Corpuscular Hemoglobin 30 pg (25-35) Mean Corpuscular Hemoglobin Concent 33 g/dL (31-37) Red Cell Distribution Width 13.6 % (11.5-14.5) Platelet Count 240 x10^3/uL (140-400) Sodium Level 145 mmol/L (136-145) Potassium Level 4.7 mmol/L (3.5-5.1) Chloride Level 108 mmol/L (98-107) Carbon Dioxide Level 33 mmol/L (21-32) Anion Gap 4 (6-14) Blood Urea Nitrogen 19 mg/dL (8-26) Creatinine 2.0 mg/dL (0.7-1.3) Estimated GFR (Cockcroft-Gault) 42.8 BUN/Creatinine Ratio 10 (6-20) Glucose Level 101 mg/dL (70-99) Calcium Level 8.0 mg/dL (8.5-10.1) Total Bilirubin 0.3 mg/dL (0.2-1.0) Aspartate Amino Transf (AST/SGOT) 68 U/L (15-37) Alanine Aminotransferase (ALT/SGPT) 53 U/L (16-63) Alkaline Phosphatase 72 U/L (46-116) Lactate Dehydrogenase 344 U/L (85-227) Troponin I Quantitative 1.645 ng/mL (0.000-0.055) Total Protein 4.3 g/dL (6.4-8.2) Albumin 2.4 g/dL (3.4-5.0) Albumin/Globulin Ratio 1.3 (1.0-1.7) Procalcitonin 12.04 ng/mL (0.00-0.10) Test 08/04/19 16:32 08/05/19 06:05 08/05/19 06:09 08/05/19 07:33 O2 Saturation 93 % (92-99) 99 % (92-99) Arterial Blood pH 7.28 (7.35-7.45) 7.39 (7.35-7.45) Arterial Blood pCO2 at Patient Temp 55 mmHg (35-46) 47 mmHg (35-46) Arterial Blood pO2 at Patient Temp 69 mmHg (85-108) 321 mmHg (85-108) Arterial Blood HCO3 25 mmol/L (21-28) 28 mmol/L (21-28) Arterial Blood Base Excess -3 mmol/L (-3-3) 3 mmol/L (-3-3) FiO2 100 100 White Blood Count 18.9 x10^3/uL (4.0-11.0) Red Blood Count 5.38 x10^6/uL (4.30-5.70) Hemoglobin 16.1 g/dL (13.0-17.5) Hematocrit 48.4 % (39.0-53.0) Mean Corpuscular Volume 90 fL (79-100) Mean Corpuscular Hemoglobin 30 pg (25-35) Mean Corpuscular Hemoglobin Concent 33 g/dL (31-37) Red Cell Distribution Width 13.5 % (11.5-14.5) Platelet Count 210 x10^3/uL (140-400) Neutrophils (%) (Auto) 86 % (31-73) Lymphocytes (%) (Auto) 7 % (24-48) Monocytes (%) (Auto) 7 % (0-9) Eosinophils (%) (Auto) 0 % (0-3) Basophils (%) (Auto) 0 % (0-3) Neutrophils # (Auto) 16.3 x10^3/uL (1.8-7.7) Lymphocytes # (Auto) 1.4 x10^3/uL (1.0-4.8) Monocytes # (Auto) 1.3 x10^3/uL (0.0-1.1) Eosinophils # (Auto) 0.0 x10^3/uL (0.0-0.7) Basophils # (Auto) 0.0 x10^3/uL (0.0-0.2) Segmented Neutrophils % 35 % (35-66) Band Neutrophils % 44 % (0-9) Lymphocytes % 9 % (24-48) Atypical Lymphocytes % (Manual) 1 % (0-0) Monocytes % 8 % (0-10) Metamyelocytes % 3 % (0-0) Platelet Estimate Adequate (ADEQUATE) Large Platelets Few Sodium Level 139 mmol/L (136-145) Potassium Level 4.9 mmol/L (3.5-5.1) Chloride Level 101 mmol/L (98-107) Carbon Dioxide Level 32 mmol/L (21-32) Anion Gap 6 (6-14) Blood Urea Nitrogen 17 mg/dL (8-26) Creatinine 1.8 mg/dL (0.7-1.3) Estimated GFR (Cockcroft-Gault) 48.3 Glucose Level 111 mg/dL (70-99) Calcium Level 8.1 mg/dL (8.5-10.1) Phosphorus Level 5.1 mg/dL (2.6-4.7) Magnesium Level 1.3 mg/dL (1.8-2.4) Creatine Kinase 263 U/L (39-308) Troponin I Quantitative 2.485 ng/mL (0.000-0.055) Glucose (Fingerstick) 115 mg/dL (70-99) Test 08/05/19 09:50 Urine Collection Type U cath Urine Color Yellow Urine Clarity Clear Urine pH 7.0 (<5.0-8.0) Urine Specific Moose 1.020 (1.000-1.030) Urine Protein Negative mg/dL (NEG-TRACE) Urine Glucose (UA) Negative mg/dL (NEG) Urine Ketones (Stick) Negative mg/dL (NEG) Urine Blood Negative (NEG) Urine Nitrite Negative (NEG) Urine Bilirubin Negative (NEG) Urine Urobilinogen Dipstick 1.0 mg/dL (0.2 mg/dL) Urine Leukocyte Esterase Negative (NEG) Urine RBC 6-10 /HPF (0-2) Urine WBC 1-4 /HPF (0-4) Urine Squamous Epithelial Cells Few /LPF Urine Bacteria Few /HPF (0-FEW) Urine Mucus Slight /LPF Images Images Chest x-ray shows bilateral infiltrates Assessment/Plan Assessment/Plan 1. Drug overdose. Acute respiratory failure requiring intubation. The patient has remained intubated overnight with his white count increasing to 18.9 today. He has been started on antibiotics for possible pneumonia. He is being followed by the pulmonary and ID services. 2. Cardiac arrest with pulseless electrical activity. Secondary to the patient's drug overdose as noted above. Rhythm has been relatively stable overnight. Troponin is elevated 2.485 today secondary to prolonged CPR. We will continue to closely monitor. We will check an echocardiogram for LV function. 3. Decreased renal function. Creatinine of 1.8. Patient receiving fluids and will monitor. 4. Probable pneumonia. Antibiotics as above. Pressors as needed for blood pressure. Thank you for allowing us to participate in the care of your patient. MALINDA REYES MD August 05, 2019 11:47
--- NOTE | 2019-08-05 14:57 | PDOC2 ---
NEUROLOGY CONSULT Date of Admission Date of Admission DATE: 08/05/19 TIME: 14:49 Reason for Consult Reason for Consult: Overdose Referring Physician Referring Physician: Dr. Link Source Source: Chart review History of Present Illness History of Present Illness The patient is a 19-year-old male brought to the emergency department of [facility] due to report of drug overdose. He took a bunch of Xanax. He was partying with some friends. Another person was pronounced at the scene. He did not respond to Narcan. The patient went to pulseless electrical activity and he arrived in the emergency department still undergoing code. After about 15 minutes he was resuscitated. He was intubated and then sent here. A CT of the head was not done. Past Medical History Cardiovascular: No pertinent hx CENTRAL NERVOUS SYSTEM: Other (No pertinent history) Past Surgical History Past Surgical History: No pertinent history Family History Family History: No pertinent hx (Unobtainable) Social History Social History Unobtainable Current Medications Current Medications Current Medications Sodium Bicarbonate (Sodium Bicarb Adult 8.4% Syr) 100 meq 1X STAT IV Last administered on 08/04/19at 12:32; Start 08/04/19 at 12:13; Stop 08/04/19 at 12:16; Status DC Meropenem 500 mg/ Sodium Chloride 50 ml @ 100 mls/hr Q8HRS IV Last administered on 08/05/19at 06:12; Start 08/04/19 at 14:00; Stop 08/05/19 at 07:44; Status DC Linezolid/Dextrose 300 ml @ 300 mls/hr Q12HR IV Last administered on 08/05/19at 08:32; Start 08/04/19 at 13:00 Dextrose (Dextrose 50%-Water Syringe) 12.5 gm PRN Q15MIN PRN IV SEE COMMENTS Last administered on 08/04/19at 13:22; Start 08/04/19 at 13:00 Dextrose 1,000 ml @ 100 mls/hr Q10H IV Last administered on 08/05/19at 10:40; Start 08/04/19 at 13:00 Dextrose (Dextrose 50%-Water Syringe) 12.5 gm PRN Q15MIN PRN IV SEE COMMENTS; Start 08/04/19 at 13:15; Status UNV Midazolam HCl 100 ml @ 0 mls/hr CONT PRN IV SEE PROTOCOL Last administered on 08/04/19at 15:35; Start 08/04/19 at 14:15 Norepinephrine Bitartrate 8 mg/ Dextrose 258 ml @ 15.267 mls/ hr CONT PRN IV PER PROTOCOL Last administered on 08/05/19at 07:48; Start 08/04/19 at 14:15 Furosemide (Lasix) 20 mg 1X ONCE IVP Last administered on 08/04/19at 16:59; Start 08/04/19 at 17:00; Stop 08/04/19 at 17:01; Status DC Heparin Sodium (Porcine) (Heparin Sodium) 5,000 unit Q8HRS SQ Last administered on 08/05/19at 14:00; Start 08/04/19 at 22:00 Famotidine (Pepcid Vial) 20 mg BID IVP Last administered on 08/05/19at 08:32; Start 08/04/19 at 21:00 Meropenem 500 mg/ Sodium Chloride 50 ml @ 100 mls/hr Q6HRS IV Last administered on 08/05/19at 11:41; Start 08/05/19 at 12:00 Magnesium Sulfate 50 ml @ 25 mls/hr 1X ONCE IV Last administered on 08/05/19at 08:21; Start 08/05/19 at 08:00; Stop 08/05/19 at 09:59; Status DC Allergies Allergies: Coded Allergies: No Known Drug Allergies (Unverified , 08/05/19) Per Mother, NKDA ROS Review of System Unobtainable Physical Exam Physical Examination General: Well-developed, well-nourished white male in no acute distress HEENT: Normocephalic andatraumatic. Tympanic membranes clear.Temporal arteriespulsatile and nontender.Fundoscopic exam unremarkable Neck: Supple without bruit, no meningismus Musculoskeletal: Stability:see neurologic. Gait exam:see neurologic. Tone:see neurologic.Strength:see neurologic. Neurological: Mental Status: orientation, memory, attention span/concentration, language, fund of knowledge intubated in the ICU, no response to voice or pain. Cranial Nerves:Pupils equal and reactive to light, extraocular movements areintact. All other cranial related problems are negative except as mentioned before.Reflexes:2+ and symmetric with flexor plantar responses. Motor:Posturing withdrawal to pain. Coordination and gait:Not cooperative. Sensory:Not cooperative. Vitals VITALS Vital Signs Date Time Temp Pulse Resp B/P (MAP) Pulse Ox O2 Delivery O2 Flow Rate FiO2 08/05/19 14:00 78 16 114/64 (81) 99 Ventilator 08/05/19 12:00 98.2 98.2 Labs Labs Laboratory Tests Test 08/04/19 13:10 08/04/19 13:15 08/04/19 13:30 08/04/19 14:00 Glucose (Fingerstick) 47 mg/dL (70-99) 78 mg/dL (70-99) O2 Saturation 84 % (92-99) Arterial Blood pH 7.28 (7.35-7.45) Arterial Blood pCO2 at Patient Temp 54 mmHg (35-46) Arterial Blood HCO3 24 mmol/L (21-28) Arterial Blood Base Excess -4 mmol/L (-3-3) FiO2 100 White Blood Count 3.5 x10^3/uL (4.0-11.0) Red Blood Count 5.73 x10^6/uL (4.30-5.70) Hemoglobin 17.3 g/dL (13.0-17.5) Hematocrit 51.9 % (39.0-53.0) Mean Corpuscular Volume 91 fL (79-100) Mean Corpuscular Hemoglobin 30 pg (25-35) Mean Corpuscular Hemoglobin Concent 33 g/dL (31-37) Red Cell Distribution Width 13.6 % (11.5-14.5) Platelet Count 240 x10^3/uL (140-400) Sodium Level 145 mmol/L (136-145) Potassium Level 4.7 mmol/L (3.5-5.1) Chloride Level 108 mmol/L (98-107) Carbon Dioxide Level 33 mmol/L (21-32) Anion Gap 4 (6-14) Blood Urea Nitrogen 19 mg/dL (8-26) Creatinine 2.0 mg/dL (0.7-1.3) Estimated GFR (Cockcroft-Gault) 42.8 BUN/Creatinine Ratio 10 (6-20) Glucose Level 101 mg/dL (70-99) Calcium Level 8.0 mg/dL (8.5-10.1) Total Bilirubin 0.3 mg/dL (0.2-1.0) Aspartate Amino Transf (AST/SGOT) 68 U/L (15-37) Alanine Aminotransferase (ALT/SGPT) 53 U/L (16-63) Alkaline Phosphatase 72 U/L (46-116) Lactate Dehydrogenase 344 U/L (85-227) Troponin I Quantitative 1.645 ng/mL (0.000-0.055) Total Protein 4.3 g/dL (6.4-8.2) Albumin 2.4 g/dL (3.4-5.0) Albumin/Globulin Ratio 1.3 (1.0-1.7) Procalcitonin 12.04 ng/mL (0.00-0.10) Test 08/04/19 16:32 08/05/19 06:05 08/05/19 06:09 08/05/19 07:33 O2 Saturation 93 % (92-99) 99 % (92-99) Arterial Blood pH 7.28 (7.35-7.45) 7.39 (7.35-7.45) Arterial Blood pCO2 at Patient Temp 55 mmHg (35-46) 47 mmHg (35-46) Arterial Blood pO2 at Patient Temp 69 mmHg (85-108) 321 mmHg (85-108) Arterial Blood HCO3 25 mmol/L (21-28) 28 mmol/L (21-28) Arterial Blood Base Excess -3 mmol/L (-3-3) 3 mmol/L (-3-3) FiO2 100 100 White Blood Count 18.9 x10^3/uL (4.0-11.0) Red Blood Count 5.38 x10^6/uL (4.30-5.70) Hemoglobin 16.1 g/dL (13.0-17.5) Hematocrit 48.4 % (39.0-53.0) Mean Corpuscular Volume 90 fL (79-100) Mean Corpuscular Hemoglobin 30 pg (25-35) Mean Corpuscular Hemoglobin Concent 33 g/dL (31-37) Red Cell Distribution Width 13.5 % (11.5-14.5) Platelet Count 210 x10^3/uL (140-400) Neutrophils (%) (Auto) 86 % (31-73) Lymphocytes (%) (Auto) 7 % (24-48) Monocytes (%) (Auto) 7 % (0-9) Eosinophils (%) (Auto) 0 % (0-3) Basophils (%) (Auto) 0 % (0-3) Neutrophils # (Auto) 16.3 x10^3/uL (1.8-7.7) Lymphocytes # (Auto) 1.4 x10^3/uL (1.0-4.8) Monocytes # (Auto) 1.3 x10^3/uL (0.0-1.1) Eosinophils # (Auto) 0.0 x10^3/uL (0.0-0.7) Basophils # (Auto) 0.0 x10^3/uL (0.0-0.2) Segmented Neutrophils % 35 % (35-66) Band Neutrophils % 44 % (0-9) Lymphocytes % 9 % (24-48) Atypical Lymphocytes % (Manual) 1 % (0-0) Monocytes % 8 % (0-10) Metamyelocytes % 3 % (0-0) Platelet Estimate Adequate (ADEQUATE) Large Platelets Few Sodium Level 139 mmol/L (136-145) Potassium Level 4.9 mmol/L (3.5-5.1) Chloride Level 101 mmol/L (98-107) Carbon Dioxide Level 32 mmol/L (21-32) Anion Gap 6 (6-14) Blood Urea Nitrogen 17 mg/dL (8-26) Creatinine 1.8 mg/dL (0.7-1.3) Estimated GFR (Cockcroft-Gault) 48.3 Glucose Level 111 mg/dL (70-99) Calcium Level 8.1 mg/dL (8.5-10.1) Phosphorus Level 5.1 mg/dL (2.6-4.7) Magnesium Level 1.3 mg/dL (1.8-2.4) Creatine Kinase 263 U/L (39-308) Troponin I Quantitative 2.485 ng/mL (0.000-0.055) Glucose (Fingerstick) 115 mg/dL (70-99) Test 08/05/19 09:50 08/05/19 11:49 Urine Collection Type U cath Urine Color Yellow Urine Clarity Clear Urine pH 7.0 (<5.0-8.0) Urine Specific [place] 1.020 (1.000-1.030) Urine Protein Negative mg/dL (NEG-TRACE) Urine Glucose (UA) Negative mg/dL (NEG) Urine Ketones (Stick) Negative mg/dL (NEG) Urine Blood Negative (NEG) Urine Nitrite Negative (NEG) Urine Bilirubin Negative (NEG) Urine Urobilinogen Dipstick 1.0 mg/dL (0.2 mg/dL) Urine Leukocyte Esterase Negative (NEG) Urine RBC 6-10 /HPF (0-2) Urine WBC 1-4 /HPF (0-4) Urine Squamous Epithelial Cells Few /LPF Urine Bacteria Few /HPF (0-FEW) Urine Mucus Slight /LPF Glucose (Fingerstick) 115 mg/dL (70-99) Laboratory Tests Test 08/04/19 16:32 08/05/19 06:05 08/05/19 06:09 08/05/19 07:33 O2 Saturation 93 % (92-99) 99 % (92-99) Arterial Blood pH 7.28 (7.35-7.45) 7.39 (7.35-7.45) Arterial Blood pCO2 at Patient Temp 55 mmHg (35-46) 47 mmHg (35-46) Arterial Blood pO2 at Patient Temp 69 mmHg (85-108) 321 mmHg (85-108) Arterial Blood HCO3 25 mmol/L (21-28) 28 mmol/L (21-28) Arterial Blood Base Excess -3 mmol/L (-3-3) 3 mmol/L (-3-3) FiO2 100 100 White Blood Count 18.9 x10^3/uL (4.0-11.0) Red Blood Count 5.38 x10^6/uL (4.30-5.70) Hemoglobin 16.1 g/dL (13.0-17.5) Hematocrit 48.4 % (39.0-53.0) Mean Corpuscular Volume 90 fL (79-100) Mean Corpuscular Hemoglobin 30 pg (25-35) Mean Corpuscular Hemoglobin Concent 33 g/dL (31-37) Red Cell Distribution Width 13.5 % (11.5-14.5) Platelet Count 210 x10^3/uL (140-400) Neutrophils (%) (Auto) 86 % (31-73) Lymphocytes (%) (Auto) 7 % (24-48) Monocytes (%) (Auto) 7 % (0-9) Eosinophils (%) (Auto) 0 % (0-3) Basophils (%) (Auto) 0 % (0-3) Neutrophils # (Auto) 16.3 x10^3/uL (1.8-7.7) Lymphocytes # (Auto) 1.4 x10^3/uL (1.0-4.8) Monocytes # (Auto) 1.3 x10^3/uL (0.0-1.1) Eosinophils # (Auto) 0.0 x10^3/uL (0.0-0.7) Basophils # (Auto) 0.0 x10^3/uL (0.0-0.2) Segmented Neutrophils % 35 % (35-66) Band Neutrophils % 44 % (0-9) Lymphocytes % 9 % (24-48) Atypical Lymphocytes % (Manual) 1 % (0-0) Monocytes % 8 % (0-10) Metamyelocytes % 3 % (0-0) Platelet Estimate Adequate (ADEQUATE) Large Platelets Few Sodium Level 139 mmol/L (136-145) Potassium Level 4.9 mmol/L (3.5-5.1) Chloride Level 101 mmol/L (98-107) Carbon Dioxide Level 32 mmol/L (21-32) Anion Gap 6 (6-14) Blood Urea Nitrogen 17 mg/dL (8-26) Creatinine 1.8 mg/dL (0.7-1.3) Estimated GFR (Cockcroft-Gault) 48.3 Glucose Level 111 mg/dL (70-99) Calcium Level 8.1 mg/dL (8.5-10.1) Phosphorus Level 5.1 mg/dL (2.6-4.7) Magnesium Level 1.3 mg/dL (1.8-2.4) Creatine Kinase 263 U/L (39-308) Troponin I Quantitative 2.485 ng/mL (0.000-0.055) Glucose (Fingerstick) 115 mg/dL (70-99) Test 08/05/19 09:50 08/05/19 11:49 Urine Collection Type U cath Urine Color Yellow Urine Clarity Clear Urine pH 7.0 (<5.0-8.0) Urine Specific [place] 1.020 (1.000-1.030) Urine Protein Negative mg/dL (NEG-TRACE) Urine Glucose (UA) Negative mg/dL (NEG) Urine Ketones (Stick) Negative mg/dL (NEG) Urine Blood Negative (NEG) Urine Nitrite Negative (NEG) Urine Bilirubin Negative (NEG) Urine Urobilinogen Dipstick 1.0 mg/dL (0.2 mg/dL) Urine Leukocyte Esterase Negative (NEG) Urine RBC 6-10 /HPF (0-2) Urine WBC 1-4 /HPF (0-4) Urine Squamous Epithelial Cells Few /LPF Urine Bacteria Few /HPF (0-FEW) Urine Mucus Slight /LPF Glucose (Fingerstick) 115 mg/dL (70-99) Urine toxic screen was positive for benzodiazepine, cocaine, and cannabinoids Images Images CT HEAD WITHOUT CONTRAST History: Altered mental status, code, overdose. Comparison: None. Procedure: Axial images are obtained of the head from the skull base through the vertex without IV contrast. Findings: The ventricles and sulci are normal for the patient's age. No mass-effect, midline shift, hemorrhage, extra-axial fluid collection, or obvious acute infarction is identified. Basilar cisterns are patent. Bone windows demonstrate no acute calvarial abnormality. There is severe mucosal thickening of the bilateral maxillary sinuses. There is an air-fluid level in the left maxillary sinus. There is severe mucosal thickening of the sphenoid sinuses. Mild mucosal thickening of the posterior ethmoid sinuses. Mastoid air cells are well aerated. IMPRESSION: 1. No acute intracranial abnormality. 2. Paranasal sinus disease. Left maxillary sinus air-fluid level suggests acute sinusitis. Assessment/Plan Assessment/Plan Impression: Toxic encephalopathy Anoxic encephalopathy Urine toxic screen was positive for benzodiazepines, cocaine, and cannabinoids Recommendations: Stat CT head, ordered last night, done, reviewed above. Supportive ICU care Probably no validity from an EEG until another day or 2 given the benzodiazepine overdose. Results of EEG would not affect my management. Thank you for letting me help with the patient's care. KEITH WILLOUGHBY MD August 05, 2019 14:57
--- NOTE | 2019-08-05 20:45 | NUR ---
this nurse walking into pt's room and two nurses were at his bedside d/t pt seizing and HR in 200s. pt's face was wiley, his lips were turning blue, his arms were completely stiff and stretched out in a "T" shape while his legs were stiff and turning into themselves. oral suction provided, Versed 5mg bolus given and gtt restarted at 5mg/hr and FiO2 increased to 100%. Dr Perdomo paged and notified, new orders received and noted. mother phoned unit and updated, questions answered and reassurance provided. will pass on in report, will continue to closely monitor.
[2019-08-05] MEDS ORDERED: MIDAZOLAM HCL 50 MG in IV NORMAL SALINE 50ML 50 ML IV PRN (21:00)
[2019-08-05] MEDS: levETIRAcetam 500 MG in IV DEXTROSE 5% 100ML 100 ML IV SCH (21:14)
--- NOTE | 2019-08-05 23:37 | EKG ---
[facility] [address] [place] [address] Test Date: 2019-08-05 Test Time: 23:31:10 Pat Name: GIULIANA CLAYTON Department: Room: 270 1 Gender: M Agency Service Coordinator: MASSIEL : 2000 Requested By: RACHEL PAYNE Order Number: [id number] Reading MD: Dominic Jaimes Measurements Intervals [place] Rate: 137 P: CO: QRS: 83 QRSD: 92 T: 37 QT: 316 QTc: 479 Interpretive Statements ATRIAL FIBRILLATION WITH RVR Electronically Signed On 08-06-2019 9:01:08 CDT by Dominic Jaimes
--- NOTE | 2019-08-05 23:45 | NUR ---
pt's HR continues to be elevated after seizure earlier in the shift; multiple PACs noted but mostly in ST. however, around 2300, HR very irregular, jumping from 130s-160s and no P wave observed. EKG completed and confirms pt is now in Afib RVR. Dr Ly paged and notified, new orders received and noted. will pass on in report, will continue to closely monitor.
[2019-08-06] VITALS (22 sets, daily range): BP systolic 114–155; BP diastolic 48–76
[2019-08-06] MEDS ORDERED: DIGOXIN IV 500 MCG/2 ML AMPUL. IV ONE ×3 (00:15→08:30)
[2019-08-06] MEDS: MEROPENEM 500 MG in IV NORMAL SALINE 50ML 50 ML IV SCH (06:23)
[2019-08-06] MEDS: MIDAZOLAM 100mg/100ml NS BAG 100 ML IV PRN ×2 (06:23→18:21)
[2019-08-06] MEDS: HEPARIN for SUB-Q USE 5,000 UNIT/ML VIAL. SQ SCH ×3 (06:31→21:51)
[2019-08-06 07:27] LABS: HEMATOCRIT 40.4 % (39.0-53.0); HEMOGLOBIN 13.5 g/dL (13.0-17.5); RED BLOOD COUNT 4.52 x10^6/uL (4.30-5.70); RED CELL DISTRIBUTION WIDTH 13.6 % (11.5-14.5)
--- NOTE | 2019-08-06 08:03 | RAD ---
PORTABLE CHEST 1V INDICATION: Respiratory failure. COMPARISON STUDY: 08/05/2019. FINDINGS: Life Support Devices: Stable endotracheal tube and enteric tube. Lungs: Normal lung volume. Improving scattered bilateral opacities. Normal pulmonary vasculature. Pleura: No pleural effusion or pneumothorax. Heart and Mediastinum: Stable cardiomediastinal silhouette and great vessels. IMPRESSION: 1. Improving bilateral opacities. 2. Stable life support devices. Electronically signed by: Fabrizio Clay MD (08/06/2019 8:00 AM) [id number]
[2019-08-06 08:04] LABS: ALBUMIN 2.4 g/dL (3.4-5.0); ALBUMIN/GLOBULIN RATIO 0.9 (1.0-1.7); CALCIUM 8.5 mg/dL (8.5-10.1); CREATININE 1.4 mg/dL (0.7-1.3); GFR 64.6; TOTAL BILIRUBIN 0.4 mg/dL (0.2-1.0); TOTAL PROTEIN 5.2 g/dL (6.4-8.2)
[2019-08-06 08:32] LABS: BASE EXCESS ABG 6 mmol/L (-3-3); HCO3 ABG 30 mmol/L (21-28); PCO2 ABG 44 mmHg (35-46); PO2 ABG 144 mmHg (85-108); SAT O2 ABG 99 % (92-99)
[2019-08-06 08:36] LABS: FIO2 ABG 80
--- NOTE | 2019-08-06 09:09 | PDOC ---
PULMONARY PROGRESS NOTES Subjective remains on vent @ 80%, PEEP 10 low dose levophed nursing reports no overnight concerns withdraws to painful stimuli has gag BUT DID NOT TRIGER VENT WHEN I REDUCED THE RATE TO 10 Vitals Vital Signs Date Time Temp Pulse Resp B/P (MAP) Pulse Ox O2 Delivery O2 Flow Rate FiO2 08/06/19 08:32 Mechanical Ventilator 08/06/19 08:31 89 24 135/59 (84) 100 08/06/19 07:15 98.5 98.5 Comments intubated/ NO SEDATION, not responsive Lungs: Clear Cardiovascular: S1 Abdomen: Soft Neuro Exam: Alert Extremities: No Edema Skin: Warm Labs Laboratory Tests Test 08/04/19 13:10 08/04/19 13:15 08/04/19 13:30 08/04/19 14:00 Glucose (Fingerstick) 47 mg/dL (70-99) 78 mg/dL (70-99) O2 Saturation 84 % (92-99) Arterial Blood pH 7.28 (7.35-7.45) Arterial Blood pCO2 at Patient Temp 54 mmHg (35-46) Arterial Blood HCO3 24 mmol/L (21-28) Arterial Blood Base Excess -4 mmol/L (-3-3) FiO2 100 White Blood Count 3.5 x10^3/uL (4.0-11.0) Red Blood Count 5.73 x10^6/uL (4.30-5.70) Hemoglobin 17.3 g/dL (13.0-17.5) Hematocrit 51.9 % (39.0-53.0) Mean Corpuscular Volume 91 fL (79-100) Mean Corpuscular Hemoglobin 30 pg (25-35) Mean Corpuscular Hemoglobin Concent 33 g/dL (31-37) Red Cell Distribution Width 13.6 % (11.5-14.5) Platelet Count 240 x10^3/uL (140-400) Sodium Level 145 mmol/L (136-145) Potassium Level 4.7 mmol/L (3.5-5.1) Chloride Level 108 mmol/L (98-107) Carbon Dioxide Level 33 mmol/L (21-32) Anion Gap 4 (6-14) Blood Urea Nitrogen 19 mg/dL (8-26) Creatinine 2.0 mg/dL (0.7-1.3) Estimated GFR (Cockcroft-Gault) 42.8 BUN/Creatinine Ratio 10 (6-20) Glucose Level 101 mg/dL (70-99) Calcium Level 8.0 mg/dL (8.5-10.1) Total Bilirubin 0.3 mg/dL (0.2-1.0) Aspartate Amino Transf (AST/SGOT) 68 U/L (15-37) Alanine Aminotransferase (ALT/SGPT) 53 U/L (16-63) Alkaline Phosphatase 72 U/L (46-116) Lactate Dehydrogenase 344 U/L (85-227) Troponin I Quantitative 1.645 ng/mL (0.000-0.055) Total Protein 4.3 g/dL (6.4-8.2) Albumin 2.4 g/dL (3.4-5.0) Albumin/Globulin Ratio 1.3 (1.0-1.7) Procalcitonin 12.04 ng/mL (0.00-0.10) Test 08/04/19 16:32 08/04/19 23:53 08/05/19 06:05 08/05/19 06:09 O2 Saturation 93 % (92-99) Arterial Blood pH 7.28 (7.35-7.45) Arterial Blood pCO2 at Patient Temp 55 mmHg (35-46) Arterial Blood pO2 at Patient Temp 69 mmHg (85-108) Arterial Blood HCO3 25 mmol/L (21-28) Arterial Blood Base Excess -3 mmol/L (-3-3) FiO2 100 Glucose (Fingerstick) 127 mg/dL (70-99) 115 mg/dL (70-99) White Blood Count 18.9 x10^3/uL (4.0-11.0) Red Blood Count 5.38 x10^6/uL (4.30-5.70) Hemoglobin 16.1 g/dL (13.0-17.5) Hematocrit 48.4 % (39.0-53.0) Mean Corpuscular Volume 90 fL (79-100) Mean Corpuscular Hemoglobin 30 pg (25-35) Mean Corpuscular Hemoglobin Concent 33 g/dL (31-37) Red Cell Distribution Width 13.5 % (11.5-14.5) Platelet Count 210 x10^3/uL (140-400) Neutrophils (%) (Auto) 86 % (31-73) Lymphocytes (%) (Auto) 7 % (24-48) Monocytes (%) (Auto) 7 % (0-9) Eosinophils (%) (Auto) 0 % (0-3) Basophils (%) (Auto) 0 % (0-3) Neutrophils # (Auto) 16.3 x10^3/uL (1.8-7.7) Lymphocytes # (Auto) 1.4 x10^3/uL (1.0-4.8) Monocytes # (Auto) 1.3 x10^3/uL (0.0-1.1) Eosinophils # (Auto) 0.0 x10^3/uL (0.0-0.7) Basophils # (Auto) 0.0 x10^3/uL (0.0-0.2) Segmented Neutrophils % 35 % (35-66) Band Neutrophils % 44 % (0-9) Lymphocytes % 9 % (24-48) Atypical Lymphocytes % (Manual) 1 % (0-0) Monocytes % 8 % (0-10) Metamyelocytes % 3 % (0-0) Platelet Estimate Adequate (ADEQUATE) Large Platelets Few Sodium Level 139 mmol/L (136-145) Potassium Level 4.9 mmol/L (3.5-5.1) Chloride Level 101 mmol/L (98-107) Carbon Dioxide Level 32 mmol/L (21-32) Anion Gap 6 (6-14) Blood Urea Nitrogen 17 mg/dL (8-26) Creatinine 1.8 mg/dL (0.7-1.3) Estimated GFR (Cockcroft-Gault) 48.3 Glucose Level 111 mg/dL (70-99) Calcium Level 8.1 mg/dL (8.5-10.1) Phosphorus Level 5.1 mg/dL (2.6-4.7) Magnesium Level 1.3 mg/dL (1.8-2.4) Creatine Kinase 263 U/L (39-308) Troponin I Quantitative 2.485 ng/mL (0.000-0.055) Test 08/05/19 07:33 08/05/19 09:50 08/05/19 11:49 08/05/19 18:23 O2 Saturation 99 % (92-99) Arterial Blood pH 7.39 (7.35-7.45) Arterial Blood pCO2 at Patient Temp 47 mmHg (35-46) Arterial Blood pO2 at Patient Temp 321 mmHg (85-108) Arterial Blood HCO3 28 mmol/L (21-28) Arterial Blood Base Excess 3 mmol/L (-3-3) FiO2 100 Urine Collection Type U cath Urine Color Yellow Urine Clarity Clear Urine pH 7.0 (<5.0-8.0) Urine Specific [place] 1.020 (1.000-1.030) Urine Protein Negative mg/dL (NEG-TRACE) Urine Glucose (UA) Negative mg/dL (NEG) Urine Ketones (Stick) Negative mg/dL (NEG) Urine Blood Negative (NEG) Urine Nitrite Negative (NEG) Urine Bilirubin Negative (NEG) Urine Urobilinogen Dipstick 1.0 mg/dL (0.2 mg/dL) Urine Leukocyte Esterase Negative (NEG) Urine RBC 6-10 /HPF (0-2) Urine WBC 1-4 /HPF (0-4) Urine Squamous Epithelial Cells Few /LPF Urine Bacteria Few /HPF (0-FEW) Urine Mucus Slight /LPF Glucose (Fingerstick) 115 mg/dL (70-99) 111 mg/dL (70-99) Test 08/06/19 06:30 08/06/19 08:25 White Blood Count 16.0 x10^3/uL (4.0-11.0) Red Blood Count 4.52 x10^6/uL (4.30-5.70) Hemoglobin 13.5 g/dL (13.0-17.5) Hematocrit 40.4 % (39.0-53.0) Mean Corpuscular Volume 90 fL (79-100) Mean Corpuscular Hemoglobin 30 pg (25-35) Mean Corpuscular Hemoglobin Concent 33 g/dL (31-37) Red Cell Distribution Width 13.6 % (11.5-14.5) Platelet Count 134 x10^3/uL (140-400) Sodium Level 135 mmol/L (136-145) Potassium Level 4.0 mmol/L (3.5-5.1) Chloride Level 101 mmol/L (98-107) Carbon Dioxide Level 29 mmol/L (21-32) Anion Gap 5 (6-14) Blood Urea Nitrogen 15 mg/dL (8-26) Creatinine 1.4 mg/dL (0.7-1.3) Estimated GFR (Cockcroft-Gault) 64.6 BUN/Creatinine Ratio 11 (6-20) Glucose Level 93 mg/dL (70-99) Calcium Level 8.5 mg/dL (8.5-10.1) Magnesium Level 2.0 mg/dL (1.8-2.4) Total Bilirubin 0.4 mg/dL (0.2-1.0) Aspartate Amino Transf (AST/SGOT) 34 U/L (15-37) Alanine Aminotransferase (ALT/SGPT) 32 U/L (16-63) Alkaline Phosphatase 46 U/L (46-116) Total Protein 5.2 g/dL (6.4-8.2) Albumin 2.4 g/dL (3.4-5.0) Albumin/Globulin Ratio 0.9 (1.0-1.7) O2 Saturation 99 % (92-99) Arterial Blood pH 7.45 (7.35-7.45) Arterial Blood pCO2 at Patient Temp 44 mmHg (35-46) Arterial Blood pO2 at Patient Temp 144 mmHg (85-108) Arterial Blood HCO3 30 mmol/L (21-28) Arterial Blood Base Excess 6 mmol/L (-3-3) FiO2 80 Laboratory Tests Test 08/05/19 09:50 08/05/19 11:49 08/05/19 18:23 08/06/19 06:30 Urine Collection Type U cath Urine Color Yellow Urine Clarity Clear Urine pH 7.0 (<5.0-8.0) Urine Specific [place] 1.020 (1.000-1.030) Urine Protein Negative mg/dL (NEG-TRACE) Urine Glucose (UA) Negative mg/dL (NEG) Urine Ketones (Stick) Negative mg/dL (NEG) Urine Blood Negative (NEG) Urine Nitrite Negative (NEG) Urine Bilirubin Negative (NEG) Urine Urobilinogen Dipstick 1.0 mg/dL (0.2 mg/dL) Urine Leukocyte Esterase Negative (NEG) Urine RBC 6-10 /HPF (0-2) Urine WBC 1-4 /HPF (0-4) Urine Squamous Epithelial Cells Few /LPF Urine Bacteria Few /HPF (0-FEW) Urine Mucus Slight /LPF Glucose (Fingerstick) 115 mg/dL (70-99) 111 mg/dL (70-99) White Blood Count 16.0 x10^3/uL (4.0-11.0) Red Blood Count 4.52 x10^6/uL (4.30-5.70) Hemoglobin 13.5 g/dL (13.0-17.5) Hematocrit 40.4 % (39.0-53.0) Mean Corpuscular Volume 90 fL (79-100) Mean Corpuscular Hemoglobin 30 pg (25-35) Mean Corpuscular Hemoglobin Concent 33 g/dL (31-37) Red Cell Distribution Width 13.6 % (11.5-14.5) Platelet Count 134 x10^3/uL (140-400) Sodium Level 135 mmol/L (136-145) Potassium Level 4.0 mmol/L (3.5-5.1) Chloride Level 101 mmol/L (98-107) Carbon Dioxide Level 29 mmol/L (21-32) Anion Gap 5 (6-14) Blood Urea Nitrogen 15 mg/dL (8-26) Creatinine 1.4 mg/dL (0.7-1.3) Estimated GFR (Cockcroft-Gault) 64.6 BUN/Creatinine Ratio 11 (6-20) Glucose Level 93 mg/dL (70-99) Calcium Level 8.5 mg/dL (8.5-10.1) Magnesium Level 2.0 mg/dL (1.8-2.4) Total Bilirubin 0.4 mg/dL (0.2-1.0) Aspartate Amino Transf (AST/SGOT) 34 U/L (15-37) Alanine Aminotransferase (ALT/SGPT) 32 U/L (16-63) Alkaline Phosphatase 46 U/L (46-116) Total Protein 5.2 g/dL (6.4-8.2) Albumin 2.4 g/dL (3.4-5.0) Albumin/Globulin Ratio 0.9 (1.0-1.7) Test 08/06/19 08:25 O2 Saturation 99 % (92-99) Arterial Blood pH 7.45 (7.35-7.45) Arterial Blood pCO2 at Patient Temp 44 mmHg (35-46) Arterial Blood pO2 at Patient Temp 144 mmHg (85-108) Arterial Blood HCO3 30 mmol/L (21-28) Arterial Blood Base Excess 6 mmol/L (-3-3) FiO2 [address] head - 08/04/2019 IMPRESSION: 1. No acute intracranial abnormality. 2. Paranasal sinus disease. Left maxillary sinus air-fluid level suggests acute sinusitis. CXR-- 08/05/2019 IMPRESSION: 1. Bilateral airspace opacities with satisfactory endotracheal intubation, ET tube terminating 4.8 cm above the mike. Enteric tube also appears in good position in the gastric fundus. Impression . IMPRESSION: 1. Acute hypoxic respiratory failure secondary to respiratory arrest from drug overdose and highly suspected aspiration pneumonia/ ALI/ARDS with severe hypox ia. 2. Drug overdose including cocaine, marijuana and Xanax. 3. Highly suspected anoxic brain injury/ toxic encephalopathy. The patient is clinically not brain . Has preserved brain stem reflexes. 4. Highly suspected aspiration pneumonia contributing to severe hypoxia. 5. Decreased urine output and acute kidney injury--improving 6. Shock. Status post fluid resuscitation. 7. ct head with no major events Plan . RECOMMENDATIONS: 1. We will continue with present assist control mode, wean FiO2/ PEEP . ABG reviewed 2. Follow ABGs and make necessary adjustments. 3. Continue broad-spectrum antibiotics, Zyvox. Follow ID recommendations. cxr improved 08/05 4. Monitor urine output. Status post fluid resuscitation. 5. reviewed CT head . 6. neurology following - 7. This patient likely has anoxic encephalopathy. 8. will inform mother and update condition DVT/GI PPX: Heparin/pepcid Discussed with RN and RT./ Dr Link Critical care time 30 minutes. JEAN PIERRE TUTTLE MD August 06, 2019 09:09
[2019-08-06] MEDS: FAMOTIDINE 20 MG/2 ML VIAL IVP SCH ×2 (09:21→21:31)
[2019-08-06] MEDS: levETIRAcetam 500 MG in IV DEXTROSE 5% 100ML 100 ML IV SCH ×2 (09:21→21:31)
--- NOTE | 2019-08-06 09:53 | PDOC ---
Infectious Disease Note Subjective Subjective intubated/sedated ROS ROS unable to obtain Vital Sign Vital Signs Vital Signs Date Time Temp Pulse Resp B/P (MAP) Pulse Ox O2 Delivery O2 Flow Rate FiO2 08/06/19 09:21 97 144/65 08/06/19 09:18 24 98 Ventilator 08/06/19 07:15 98.5 98.5 Physical Exam PHYSICAL EXAM GENERAL: Intubated, sedated. HEENT: Anicteric/ PERRL. ETT enteric tube. NECK: Supple. No JVD LUNGS: Decreased breath sound at the bases. HEART: S1, S2 regular. ABDOMEN: Soft, nontender, nondistended. Decreased Bowel sounds present. EXTREMITIES: No edema. No cyanosis. DERMATOLOGIC: Warm, dry. No generalized rash. Multiple tattoos. GENITOURINARY: Gonzalez in place. SOLOIST DANCER: Unable to assess, intubated. PSYCHIATRIC: Unable to assess, intubated. Labs Lab Laboratory Tests Test 08/05/19 09:50 08/05/19 11:49 08/05/19 18:23 08/06/19 06:30 Urine Collection Type U cath Urine Color Yellow Urine Clarity Clear Urine pH 7.0 (<5.0-8.0) Urine Specific [place] 1.020 (1.000-1.030) Urine Protein Negative mg/dL (NEG-TRACE) Urine Glucose (UA) Negative mg/dL (NEG) Urine Ketones (Stick) Negative mg/dL (NEG) Urine Blood Negative (NEG) Urine Nitrite Negative (NEG) Urine Bilirubin Negative (NEG) Urine Urobilinogen Dipstick 1.0 mg/dL (0.2 mg/dL) Urine Leukocyte Esterase Negative (NEG) Urine RBC 6-10 /HPF (0-2) Urine WBC 1-4 /HPF (0-4) Urine Squamous Epithelial Cells Few /LPF Urine Bacteria Few /HPF (0-FEW) Urine Mucus Slight /LPF Glucose (Fingerstick) 115 mg/dL (70-99) 111 mg/dL (70-99) White Blood Count 16.0 x10^3/uL (4.0-11.0) Red Blood Count 4.52 x10^6/uL (4.30-5.70) Hemoglobin 13.5 g/dL (13.0-17.5) Hematocrit 40.4 % (39.0-53.0) Mean Corpuscular Volume 90 fL (79-100) Mean Corpuscular Hemoglobin 30 pg (25-35) Mean Corpuscular Hemoglobin Concent 33 g/dL (31-37) Red Cell Distribution Width 13.6 % (11.5-14.5) Platelet Count 134 x10^3/uL (140-400) Sodium Level 135 mmol/L (136-145) Potassium Level 4.0 mmol/L (3.5-5.1) Chloride Level 101 mmol/L (98-107) Carbon Dioxide Level 29 mmol/L (21-32) Anion Gap 5 (6-14) Blood Urea Nitrogen 15 mg/dL (8-26) Creatinine 1.4 mg/dL (0.7-1.3) Estimated GFR (Cockcroft-Gault) 64.6 BUN/Creatinine Ratio 11 (6-20) Glucose Level 93 mg/dL (70-99) Calcium Level 8.5 mg/dL (8.5-10.1) Magnesium Level 2.0 mg/dL (1.8-2.4) Total Bilirubin 0.4 mg/dL (0.2-1.0) Aspartate Amino Transf (AST/SGOT) 34 U/L (15-37) Alanine Aminotransferase (ALT/SGPT) 32 U/L (16-63) Alkaline Phosphatase 46 U/L (46-116) Total Protein 5.2 g/dL (6.4-8.2) Albumin 2.4 g/dL (3.4-5.0) Albumin/Globulin Ratio 0.9 (1.0-1.7) Test 08/06/19 08:25 O2 Saturation 99 % (92-99) Arterial Blood pH 7.45 (7.35-7.45) Arterial Blood pCO2 at Patient Temp 44 mmHg (35-46) Arterial Blood pO2 at Patient Temp 144 mmHg (85-108) Arterial Blood HCO3 30 mmol/L (21-28) Arterial Blood Base Excess 6 mmol/L (-3-3) FiO2 80 Micro Microbiology 08/05/19 Blood Culture - Preliminary, Resulted NO GROWTH AFTER 1 DAY Objective Assessment 1. Acute hypoxic respiratory failure from drug overdose. 2. Status post cardiac arrest at outside hospital, PE[facility]. elevated Troponin 3. Bilateral pulmonary infiltrates, highly suspected aspiration pneumonia. 4. Leukocytosis - better. 5. Polysubstance abuse with marijuana and cocaine. 6. Drug overdose with Xanax. 7. Encephalopathy, could have component of anoxic brain injury. 8. Hypoglycemia - corrected. 9. Acute kidney injury - better. 10. Abnormal liver function tests - better 11. Brief Seizure night 5/ Plan Plan of Care 1. Continue Zyvox 5/2 given Xray infiltrates but seems some improvement - wean soon - Avoiding Vanc with CASH improving 2. D/c Meropenem / with ? seizure and dose Zosyn 3. Follow up labs and cultures at [place]. 4. Neurology following 5. Pulmonary team following. 6. Condition critical. 7. Discussed with RN and mother and SAYDA Fierro MD August 06, 2019 09:52
--- NOTE | 2019-08-06 10:03 | PDOC ---
PROGRESS NOTES Assessment Toxic encephalopathy Anoxic encephalopathy Urine toxic screen was positive for benzodiazepines, cocaine, and cannabinoids Brief seizure last night Plan Have started levetiracetam Supportive ICU care No validity from an EEG on midazolam Discussed with father Subjective None Objective Vital Signs Date Time Temp Pulse Resp B/P (MAP) Pulse Ox O2 Delivery O2 Flow Rate FiO2 08/06/19 09:21 97 144/65 08/06/19 09:18 24 98 Ventilator 08/06/19 07:15 98.5 98.5 Intake and Output 08/06/19 06:59 Intake Total 4718.3 ml Output Total 4110 ml Balance 608.3 ml Intake Oral 0 ml IV Total 4078.3 ml Tube Feeding 440 ml Blood Product IV Normal Saline Flush 200 ml Output Urine Total 4110 ml Gastric Drainage Total 0 ml PHYSICAL EXAM Eyes closed, no response to voice, intubated and sedated PERRL. Absent oculocephalic reflex CN: no focal findings. Muscle tone: normal. Muscle strength: slight withdrawal to pain DTR: 1+ Plantar reflex: silent Gait: not examined Sensory exam: not examined. Cerebellar: not examined Review of Relevant I have reviewed the following items giorgi (where applicable) has been applied. Labs Laboratory Tests Test 08/04/19 13:10 08/04/19 13:15 08/04/19 13:30 08/04/19 14:00 Glucose (Fingerstick) 47 mg/dL (70-99) 78 mg/dL (70-99) O2 Saturation 84 % (92-99) Arterial Blood pH 7.28 (7.35-7.45) Arterial Blood pCO2 at Patient Temp 54 mmHg (35-46) Arterial Blood HCO3 24 mmol/L (21-28) Arterial Blood Base Excess -4 mmol/L (-3-3) FiO2 100 White Blood Count 3.5 x10^3/uL (4.0-11.0) Red Blood Count 5.73 x10^6/uL (4.30-5.70) Hemoglobin 17.3 g/dL (13.0-17.5) Hematocrit 51.9 % (39.0-53.0) Mean Corpuscular Volume 91 fL (79-100) Mean Corpuscular Hemoglobin 30 pg (25-35) Mean Corpuscular Hemoglobin Concent 33 g/dL (31-37) Red Cell Distribution Width 13.6 % (11.5-14.5) Platelet Count 240 x10^3/uL (140-400) Sodium Level 145 mmol/L (136-145) Potassium Level 4.7 mmol/L (3.5-5.1) Chloride Level 108 mmol/L (98-107) Carbon Dioxide Level 33 mmol/L (21-32) Anion Gap 4 (6-14) Blood Urea Nitrogen 19 mg/dL (8-26) Creatinine 2.0 mg/dL (0.7-1.3) Estimated GFR (Cockcroft-Gault) 42.8 BUN/Creatinine Ratio 10 (6-20) Glucose Level 101 mg/dL (70-99) Calcium Level 8.0 mg/dL (8.5-10.1) Total Bilirubin 0.3 mg/dL (0.2-1.0) Aspartate Amino Transf (AST/SGOT) 68 U/L (15-37) Alanine Aminotransferase (ALT/SGPT) 53 U/L (16-63) Alkaline Phosphatase 72 U/L (46-116) Lactate Dehydrogenase 344 U/L (85-227) Troponin I Quantitative 1.645 ng/mL (0.000-0.055) Total Protein 4.3 g/dL (6.4-8.2) Albumin 2.4 g/dL (3.4-5.0) Albumin/Globulin Ratio 1.3 (1.0-1.7) Procalcitonin 12.04 ng/mL (0.00-0.10) Test 08/04/19 16:32 08/04/19 23:53 08/05/19 06:05 08/05/19 06:09 O2 Saturation 93 % (92-99) Arterial Blood pH 7.28 (7.35-7.45) Arterial Blood pCO2 at Patient Temp 55 mmHg (35-46) Arterial Blood pO2 at Patient Temp 69 mmHg (85-108) Arterial Blood HCO3 25 mmol/L (21-28) Arterial Blood Base Excess -3 mmol/L (-3-3) FiO2 100 Glucose (Fingerstick) 127 mg/dL (70-99) 115 mg/dL (70-99) White Blood Count 18.9 x10^3/uL (4.0-11.0) Red Blood Count 5.38 x10^6/uL (4.30-5.70) Hemoglobin 16.1 g/dL (13.0-17.5) Hematocrit 48.4 % (39.0-53.0) Mean Corpuscular Volume 90 fL (79-100) Mean Corpuscular Hemoglobin 30 pg (25-35) Mean Corpuscular Hemoglobin Concent 33 g/dL (31-37) Red Cell Distribution Width 13.5 % (11.5-14.5) Platelet Count 210 x10^3/uL (140-400) Neutrophils (%) (Auto) 86 % (31-73) Lymphocytes (%) (Auto) 7 % (24-48) Monocytes (%) (Auto) 7 % (0-9) Eosinophils (%) (Auto) 0 % (0-3) Basophils (%) (Auto) 0 % (0-3) Neutrophils # (Auto) 16.3 x10^3/uL (1.8-7.7) Lymphocytes # (Auto) 1.4 x10^3/uL (1.0-4.8) Monocytes # (Auto) 1.3 x10^3/uL (0.0-1.1) Eosinophils # (Auto) 0.0 x10^3/uL (0.0-0.7) Basophils # (Auto) 0.0 x10^3/uL (0.0-0.2) Segmented Neutrophils % 35 % (35-66) Band Neutrophils % 44 % (0-9) Lymphocytes % 9 % (24-48) Atypical Lymphocytes % (Manual) 1 % (0-0) Monocytes % 8 % (0-10) Metamyelocytes % 3 % (0-0) Platelet Estimate Adequate (ADEQUATE) Large Platelets Few Sodium Level 139 mmol/L (136-145) Potassium Level 4.9 mmol/L (3.5-5.1) Chloride Level 101 mmol/L (98-107) Carbon Dioxide Level 32 mmol/L (21-32) Anion Gap 6 (6-14) Blood Urea Nitrogen 17 mg/dL (8-26) Creatinine 1.8 mg/dL (0.7-1.3) Estimated GFR (Cockcroft-Gault) 48.3 Glucose Level 111 mg/dL (70-99) Calcium Level 8.1 mg/dL (8.5-10.1) Phosphorus Level 5.1 mg/dL (2.6-4.7) Magnesium Level 1.3 mg/dL (1.8-2.4) Creatine Kinase 263 U/L (39-308) Troponin I Quantitative 2.485 ng/mL (0.000-0.055) Test 08/05/19 07:33 08/05/19 09:50 08/05/19 11:49 08/05/19 18:23 O2 Saturation 99 % (92-99) Arterial Blood pH 7.39 (7.35-7.45) Arterial Blood pCO2 at Patient Temp 47 mmHg (35-46) Arterial Blood pO2 at Patient Temp 321 mmHg (85-108) Arterial Blood HCO3 28 mmol/L (21-28) Arterial Blood Base Excess 3 mmol/L (-3-3) FiO2 100 Urine Collection Type U cath Urine Color Yellow Urine Clarity Clear Urine pH 7.0 (<5.0-8.0) Urine Specific [place] 1.020 (1.000-1.030) Urine Protein Negative mg/dL (NEG-TRACE) Urine Glucose (UA) Negative mg/dL (NEG) Urine Ketones (Stick) Negative mg/dL (NEG) Urine Blood Negative (NEG) Urine Nitrite Negative (NEG) Urine Bilirubin Negative (NEG) Urine Urobilinogen Dipstick 1.0 mg/dL (0.2 mg/dL) Urine Leukocyte Esterase Negative (NEG) Urine RBC 6-10 /HPF (0-2) Urine WBC 1-4 /HPF (0-4) Urine Squamous Epithelial Cells Few /LPF Urine Bacteria Few /HPF (0-FEW) Urine Mucus Slight /LPF Glucose (Fingerstick) 115 mg/dL (70-99) 111 mg/dL (70-99) Test 08/06/19 06:30 08/06/19 08:25 White Blood Count 16.0 x10^3/uL (4.0-11.0) Red Blood Count 4.52 x10^6/uL (4.30-5.70) Hemoglobin 13.5 g/dL (13.0-17.5) Hematocrit 40.4 % (39.0-53.0) Mean Corpuscular Volume 90 fL (79-100) Mean Corpuscular Hemoglobin 30 pg (25-35) Mean Corpuscular Hemoglobin Concent 33 g/dL (31-37) Red Cell Distribution Width 13.6 % (11.5-14.5) Platelet Count 134 x10^3/uL (140-400) Sodium Level 135 mmol/L (136-145) Potassium Level 4.0 mmol/L (3.5-5.1) Chloride Level 101 mmol/L (98-107) Carbon Dioxide Level 29 mmol/L (21-32) Anion Gap 5 (6-14) Blood Urea Nitrogen 15 mg/dL (8-26) Creatinine 1.4 mg/dL (0.7-1.3) Estimated GFR (Cockcroft-Gault) 64.6 BUN/Creatinine Ratio 11 (6-20) Glucose Level 93 mg/dL (70-99) Calcium Level 8.5 mg/dL (8.5-10.1) Magnesium Level 2.0 mg/dL (1.8-2.4) Total Bilirubin 0.4 mg/dL (0.2-1.0) Aspartate Amino Transf (AST/SGOT) 34 U/L (15-37) Alanine Aminotransferase (ALT/SGPT) 32 U/L (16-63) Alkaline Phosphatase 46 U/L (46-116) Total Protein 5.2 g/dL (6.4-8.2) Albumin 2.4 g/dL (3.4-5.0) Albumin/Globulin Ratio 0.9 (1.0-1.7) O2 Saturation 99 % (92-99) Arterial Blood pH 7.45 (7.35-7.45) Arterial Blood pCO2 at Patient Temp 44 mmHg (35-46) Arterial Blood pO2 at Patient Temp 144 mmHg (85-108) Arterial Blood HCO3 30 mmol/L (21-28) Arterial Blood Base Excess 6 mmol/L (-3-3) FiO2 80 Laboratory Tests Test 08/05/19 11:49 08/05/19 18:23 08/06/19 06:30 08/06/19 08:25 Glucose (Fingerstick) 115 mg/dL (70-99) 111 mg/dL (70-99) White Blood Count 16.0 x10^3/uL (4.0-11.0) Red Blood Count 4.52 x10^6/uL (4.30-5.70) Hemoglobin 13.5 g/dL (13.0-17.5) Hematocrit 40.4 % (39.0-53.0) Mean Corpuscular Volume 90 fL (79-100) Mean Corpuscular Hemoglobin 30 pg (25-35) Mean Corpuscular Hemoglobin Concent 33 g/dL (31-37) Red Cell Distribution Width 13.6 % (11.5-14.5) Platelet Count 134 x10^3/uL (140-400) Sodium Level 135 mmol/L (136-145) Potassium Level 4.0 mmol/L (3.5-5.1) Chloride Level 101 mmol/L (98-107) Carbon Dioxide Level 29 mmol/L (21-32) Anion Gap 5 (6-14) Blood Urea Nitrogen 15 mg/dL (8-26) Creatinine 1.4 mg/dL (0.7-1.3) Estimated GFR (Cockcroft-Gault) 64.6 BUN/Creatinine Ratio 11 (6-20) Glucose Level 93 mg/dL (70-99) Calcium Level 8.5 mg/dL (8.5-10.1) Magnesium Level 2.0 mg/dL (1.8-2.4) Total Bilirubin 0.4 mg/dL (0.2-1.0) Aspartate Amino Transf (AST/SGOT) 34 U/L (15-37) Alanine Aminotransferase (ALT/SGPT) 32 U/L (16-63) Alkaline Phosphatase 46 U/L (46-116) Total Protein 5.2 g/dL (6.4-8.2) Albumin 2.4 g/dL (3.4-5.0) Albumin/Globulin Ratio 0.9 (1.0-1.7) O2 Saturation 99 % (92-99) Arterial Blood pH 7.45 (7.35-7.45) Arterial Blood pCO2 at Patient Temp 44 mmHg (35-46) Arterial Blood pO2 at Patient Temp 144 mmHg (85-108) Arterial Blood HCO3 30 mmol/L (21-28) Arterial Blood Base Excess 6 mmol/L (-3-3) FiO2 80 Microbiology 08/05/19 Blood Culture - Preliminary, Resulted NO GROWTH AFTER 1 DAY Medications Current Medications Sodium Bicarbonate (Sodium Bicarb Adult 8.4% Syr) 100 meq 1X STAT IV Last administered on 08/04/19at 12:32; Start 08/04/19 at 12:13; Stop 08/04/19 at 12:16; Status DC Meropenem 500 mg/ Sodium Chloride 50 ml @ 100 mls/hr Q8HRS IV Last administered on 08/05/19at 06:12; Start 08/04/19 at 14:00; Stop 08/05/19 at 07:44; Status DC Linezolid/Dextrose 300 ml @ 300 mls/hr Q12HR IV Last administered on 08/06/19at 09:22; Start 08/04/19 at 13:00 Dextrose (Dextrose 50%-Water Syringe) 12.5 gm PRN Q15MIN PRN IV SEE COMMENTS Last administered on 08/04/19at 13:22; Start 08/04/19 at 13:00 Dextrose 1,000 ml @ 100 mls/hr Q10H IV Last administered on 08/05/19at 21:14; Start 08/04/19 at 13:00 Dextrose (Dextrose 50%-Water Syringe) 12.5 gm PRN Q15MIN PRN IV SEE COMMENTS; Start 08/04/19 at 13:15; Status UNV Midazolam HCl 100 ml @ 0 mls/hr CONT PRN IV SEE PROTOCOL Last administered on 08/06/19at 06:23; Start 08/04/19 at 14:15 Norepinephrine Bitartrate 8 mg/ Dextrose 258 ml @ 15.267 mls/ hr CONT PRN IV PER PROTOCOL Last administered on 08/05/19at 07:48; Start 08/04/19 at 14:15 Furosemide (Lasix) 20 mg 1X ONCE IVP Last administered on 08/04/19at 16:59; Start 08/04/19 at 17:00; Stop 08/04/19 at 17:01; Status DC Heparin Sodium (Porcine) (Heparin Sodium) 5,000 unit Q8HRS SQ Last administered on 08/06/19at 06:31; Start 08/04/19 at 22:00 Famotidine (Pepcid Vial) 20 mg BID IVP Last administered on 08/06/19at 09:21; Start 08/04/19 at 21:00 Meropenem 500 mg/ Sodium Chloride 50 ml @ 100 mls/hr Q6HRS IV Last administered on 08/06/19at 06:23; Start 08/05/19 at 12:00 Magnesium Sulfate 50 ml @ 25 mls/hr 1X ONCE IV Last administered on 08/05/19at 08:21; Start 08/05/19 at 08:00; Stop 08/05/19 at 09:59; Status DC Lorazepam (Ativan Inj) 2 mg STK-MED ONCE .ROUTE ; Start 08/05/19 at 19:57; Stop 08/05/19 at 19:57; Status DC Levetiracetam 500 mg/Dextrose 105 ml @ 420 mls/hr Q12HR IV Last administered on 08/06/19at 09:21; Start 08/05/19 at 21:00 Midazolam HCl 50 mg/Sodium Chloride 50 ml @ 1 mls/hr CONT PRN IV SEE I/O RECORD; Start 08/05/19 at 21:00; Status UNV Digoxin (Lanoxin) 250 mcg 1X ONCE IV Last administered on 08/06/19at 00:19; Start 08/06/19 at 00:15; Stop 08/06/19 at 00:16; Status DC Digoxin (Lanoxin) 250 mcg 1X ONCE IV Last administered on 08/06/19at 02:46; Start 08/06/19 at 02:30; Stop 08/06/19 at 02:31; Status DC Digoxin (Lanoxin) 250 mcg 1X ONCE IV Last administered on 08/06/19at 09:21; Start 08/06/19 at 08:30; Stop 08/06/19 at 08:31; Status DC Vitals/I & O Vital Sign - Last 24 Hours 08/05/19 08/05/19 08/05/19 08/05/19 10:00 11:00 12:00 12:00 Temp 98.2 98.2 Pulse 85 78 78 Resp 24 23 19 B/P (MAP) 106/65 (79) 114/65 (81) 117/51 (73) Pulse Ox 98 99 98 O2 Delivery Ventilator Ventilator Mechanical Ventilator Ventilator 08/05/19 08/05/19 08/05/19 08/05/19 12:20 13:00 14:00 15:00 Pulse 68 78 82 Resp 24 16 23 B/P (MAP) 119/67 (84) 114/64 (81) 118/63 (81) Pulse Ox 98 100 99 99 O2 Delivery Ventilator Ventilator Ventilator Ventilator 08/05/19 08/05/19 08/05/19 08/05/19 16:00 16:00 16:39 17:00 Temp 99.1 99.1 Pulse 80 66 Resp 24 24 B/P (MAP) 118/62 (80) 122/67 (85) Pulse Ox 100 99 100 O2 Delivery Mechanical Ventilator Ventilator Ventilator Ventilator 08/05/19 08/05/19 08/05/19 08/05/19 18:00 19:00 20:00 20:00 Temp 99.3 99.3 Pulse 69 75 146 Resp 23 24 32 B/P (MAP) 131/70 (90) 117/58 (77) 179/100 (126) Pulse Ox 100 100 100 O2 Delivery Ventilator Ventilator Mechanical Ventilator Ventilator 08/05/19 08/05/19 08/05/19 08/05/19 20:28 21:00 21:50 22:00 Pulse 149 137 Resp 24 24 B/P (MAP) 82/56 (65) 114/56 (75) Pulse Ox 91 94 92 98 O2 Delivery Ventilator Ventilator Ventilator Ventilator 08/05/19 08/05/19 08/06/19 08/06/19 23:00 23:22 00:00 00:00 Temp 99.6 99.6 Pulse 137 131 Resp 24 24 B/P (MAP) 112/60 (77) 114/69 (84) Pulse Ox 98 91 99 O2 Delivery Ventilator Ventilator Ventilator Mechanical Ventilator 08/06/19 08/06/19 08/06/19 08/06/19 00:19 01:00 01:03 02:00 Pulse 149 94 95 Resp 24 24 B/P (MAP) 107/70 126/55 (78) 123/58 (79) Pulse Ox 99 93 100 O2 Delivery Ventilator Ventilator Ventilator 08/06/19 08/06/19 08/06/19 08/06/19 02:46 03:00 04:00 04:00 Temp 98.0 98.0 Pulse 96 82 80 Resp 24 24 B/P (MAP) 117/56 117/56 (76) 132/50 (77) Pulse Ox 100 100 O2 Delivery Ventilator Mechanical Ventilator Ventilator 08/06/19 08/06/19 08/06/19 08/06/19 04:23 05:00 06:00 07:15 Temp 98.5 98.5 Pulse 76 90 88 Resp 24 24 24 B/P (MAP) 137/57 (83) 140/72 (94) 155/76 (102) Pulse Ox 100 100 99 100 O2 Delivery Ventilator Ventilator Ventilator Ventilator 08/06/19 08/06/19 08/06/19 08/06/19 08:21 08:31 08:32 09:18 Pulse 89 97 Resp 24 24 B/P (MAP) 135/59 (84) 144/65 (91) Pulse Ox 100 100 98 O2 Delivery Ventilator Ventilator Mechanical Ventilator Ventilator 08/06/19 09:21 Pulse 97 B/P (MAP) 144/65 Intake and Output 08/05/19 08/05/19 08/06/19 14:59 22:59 06:59 Intake Total 600 ml 2354 ml 1764.3 ml Output Total 1150 ml 1460 ml 1500 ml Balance -550 ml 894 ml 264.3 ml KEITH WILLOUGHBY MD August 06, 2019 10:03
--- NOTE | 2019-08-06 10:50 | PDOC ---
MARLENE ABREU EDGER HAND 08/06/19 1050: CARDIO Progress Notes Date and Time Date of Service 08/06/19 Time of Evaluation 1050 Subjective Subjective: Other (non-responsive. Mom at bedside) Vitals Vitals Vital Signs Date Time Temp Pulse Resp B/P (MAP) Pulse Ox O2 Delivery O2 Flow Rate FiO2 08/06/19 10:01 96 24 148/69 (95) 99 Ventilator 08/06/19 07:15 98.5 98.5 Weight Weight [ ] Input and Output Intake and Output Intake and Output 08/06/19 07:00 Intake Total 4718.3 ml Output Total 3560 ml Balance 1158.3 ml Intake Oral 0 ml IV Total 4078.3 ml Tube Feeding 440 ml Blood Product IV Normal Saline Flush 200 ml Output Urine Total 3560 ml Gastric Drainage Total 0 ml Laboratory Labs Laboratory Tests Test 08/05/19 11:49 08/05/19 18:23 08/06/19 06:30 08/06/19 08:25 Glucose (Fingerstick) 115 mg/dL (70-99) 111 mg/dL (70-99) White Blood Count 16.0 x10^3/uL (4.0-11.0) Red Blood Count 4.52 x10^6/uL (4.30-5.70) Hemoglobin 13.5 g/dL (13.0-17.5) Hematocrit 40.4 % (39.0-53.0) Mean Corpuscular Volume 90 fL (79-100) Mean Corpuscular Hemoglobin 30 pg (25-35) Mean Corpuscular Hemoglobin Concent 33 g/dL (31-37) Red Cell Distribution Width 13.6 % (11.5-14.5) Platelet Count 134 x10^3/uL (140-400) Sodium Level 135 mmol/L (136-145) Potassium Level 4.0 mmol/L (3.5-5.1) Chloride Level 101 mmol/L (98-107) Carbon Dioxide Level 29 mmol/L (21-32) Anion Gap 5 (6-14) Blood Urea Nitrogen 15 mg/dL (8-26) Creatinine 1.4 mg/dL (0.7-1.3) Estimated GFR (Cockcroft-Gault) 64.6 BUN/Creatinine Ratio 11 (6-20) Glucose Level 93 mg/dL (70-99) Calcium Level 8.5 mg/dL (8.5-10.1) Magnesium Level 2.0 mg/dL (1.8-2.4) Total Bilirubin 0.4 mg/dL (0.2-1.0) Aspartate Amino Transf (AST/SGOT) 34 U/L (15-37) Alanine Aminotransferase (ALT/SGPT) 32 U/L (16-63) Alkaline Phosphatase 46 U/L (46-116) Total Protein 5.2 g/dL (6.4-8.2) Albumin 2.4 g/dL (3.4-5.0) Albumin/Globulin Ratio 0.9 (1.0-1.7) O2 Saturation 99 % (92-99) Arterial Blood pH 7.45 (7.35-7.45) Arterial Blood pCO2 at Patient Temp 44 mmHg (35-46) Arterial Blood pO2 at Patient Temp 144 mmHg (85-108) Arterial Blood HCO3 30 mmol/L (21-28) Arterial Blood Base Excess 6 mmol/L (-3-3) FiO2 80 Microbiology Micro Microbiology 08/05/19 Blood Culture - Preliminary, Resulted NO GROWTH AFTER 1 DAY Physical Exam HEENT: Neck Supple W Full Motion Chest: Symmetric LUNGS: Other (mechanical vent ) Heart: RRR Abdomen: Other (soft ) Extremities: No Edema Neurology: other (non-responsive ) Assessment Assessment 1. Acute respiratory failure secondary to drug overdose with cocaine, marijuana, and Xanax. s/p intubation 2. PEA arrest; secondary to above 3. NSTEMI; trop 2.485 in the setting acute respiratory failure and prolonged CPR. 4. PAFIB with RVR; s/p IV dig. converted back to SR/ST 5. CASH; Cr improved 6. Leukocytosis, fevers. off pressor support. BP has been adequate 7. Aspiration PNA 8. Anoxic, toxic encephalopathy 9. Seizure overnight; Keppra initiated. Recommendations Echo to assess LV systolic function ASA Add low-dose metoprolol for rate control Ongoing antibiotic therapy Lung optimization Supportive care MADISON HESS MD 08/06/19 7788: CARDIO Progress Notes Assessment Assessment Patient seen and examined. Agree with DEVELOPMENT SCIENTIST's assessment and plan. NSTEMI prob demand ischemia/prolonged CPR 2D echo to rule out WMA pending Continue vent management per pulm team MARLENE ABREU APRN August 06, 2019 10:50 MADISON HESS MD August 06, 2019 18:41
--- NOTE | 2019-08-06 11:06 | PN ---
DATE: 08/06/2019 SUBJECTIVE: The patient is resting, slightly propped up in bed, continued to be encephalopathic. He apparently has a brief seizure last night for which he was started on Keppra. OBJECTIVE: GENERAL: When I examined him, he looked well with no pallor, jaundice, cyanosis or thyromegaly. No jugular venous distention. No lower limb edema. VITAL SIGNS: His heart rate was 96, blood pressure was 148/69, temperature was 98.5, respiratory rate was 24 and his oxygen saturation was 99% on FiO2 of 60%. HEAD, EYES, EARS, NOSE AND THROAT: Showed he is normocephalic, atraumatic. He has orotracheal and orogastric tube in place. NECK: Supple. HEART: Showed normal first and second heart sounds. No gallop, rub or murmur. CHEST: Shows central trachea, equal bilateral chest expansion, air entry. I could not appreciate any crepitation or rhonchi. ABDOMEN: Showed soft, nontender. No guarding or rigidity. No organomegaly. NEUROLOGIC: He is sedated, does have good gag reflex and withdraw to pain. His intake over the last 24 hours was incompletely recorded and output was 3560. LABORATORY DATA: His lab work as of this morning showed a white cell count 16,000, hemoglobin 13.5, hematocrit 40, MCV 90 and platelet count of 134,000. His chemistry showed a serum sodium 135, potassium 4, chloride 101, bicarbonate 29, anion gap of 5, BUN 15 and creatinine 1.4. Estimated GFR was 64 mL per minute. His glucose was 93, calcium was 8.5, magnesium 2. Total bilirubin, AST, ALT and alkaline phosphatase were normal. Total protein of 5.2 and albumin was 2.4. His arterial blood gas this morning showed a pH of 7.45, pCO2 of 44, pO2 of 144, bicarbonate 30 and oxygen saturation was 99% on FiO2 of 60%. Urinalysis was essentially unremarkable. His chest x-ray this morning showed that improving bilateral opacities, stable life support devices. There is no pleural effusion, no pneumothorax. ASSESSMENT: 1. Acute hypoxic secondary to respiratory arrest from drug overdose with highly suspected aspiration pneumonia and acute respiratory distress syndrome and severe hypoxemia. 2. Drug overdose including cocaine, marijuana and Xanax. 3. Anoxic encephalopathy. 4. Acute kidney injury, that is improving. His creatinine is down from 2 to 1.4. 5. Hyponatremia, resolved. His serum sodium is down to 135. 6. Elevated troponin, likely due to demand ischemia and cardiac arrest. 7. Sepsis, likely aspiration pneumonia with elevated procalcitonin and leukocytosis. PLAN: 1. To continue mechanical ventilation, wean as tolerated. 2. Continue with IV antibiotic in the form of meropenem and Zyvox. 3. Continue with DVT and GI prophylaxis. His magnesium has improved now within normal limits. His sodium is down to 135. He is now on tube feeds through the nasogastric tube. I will discontinue the D5W. RACHEL PAYNE MD DR: EDITH/chauncey JOB#: [id number] / [id number]
[2019-08-06] MEDS: PIPERACILLIN/TAZOBACTAM 3.375 GM in IV NORMAL SALINE 50ML 50 ML IV SCH ×2 (11:58→18:21)
--- NOTE | 2019-08-06 14:58 | RAD ---
EXAM: CHEST AP ONLY INDICATION: Central line placement. TECHNIQUE: Single view COMPARISON: 08/06/2019 chest x-ray FINDINGS: Patient remains intubated with the ET tube terminating 7 cm above the mike. An enteric tube remains present, passing below the diaphragms to terminate near the gastroesophageal junction in the gastric fundus. A right jugular approach central venous catheter is now evident. The tip terminates in the approximate vicinity of the innominate vein confluence The heart size is normal. The great vessels appear unremarkable. Left hilum is obscured by ipsilateral mediastinal shift and increased density in the left hemithorax. Lungs show interval atelectatic changes in the left hemithorax. Right lung shows persistent coarse interstitial markings. No pneumothorax. No definite evidence of a pleural effusion. There are no significant osseous abnormalities. IMPRESSION: 1. Interval right jugular approach central venous catheter placement with tip in the expected location of the innominate vein confluence. No pneumothorax 2. Marked interval atelectatic changes in the left hemithorax, likely representing lobar atelectasis possibly from mucous plugging. 3. High riding endotracheal tube approximately 7 cm above the mike. Consider advancing it 3 cm for improved positioning. FOR INTERNAL CODING PURPOSES Critical result: Findings discussed with ELVA MORGAN at 08/06/2019 2:55 PM. RESULT CODE: (C) Electronically signed by: Geovanni Arevalo MD (08/06/2019 2:55 PM) [id number]
--- NOTE | 2019-08-06 15:38 | PDOC ---
Provider Note Provider Note Called for CVL placement. Permit obtained. Patient on ventilator. Versed infusion and lido 1% for local for procedure. COVID negative. Sterile technique used. US ordered. US machine failed. Relampago technique used. Seeker needle then #18 gauge Cook needle into right IJ first attempt with return of dark nonpulsitile blood. Seldinger technique used. Three lumen CVL passed over guidewire to 18 cm and [address] in place. All lines aspirated and flushed. Xray taken. No pneumothorax. No apparent complications. MD CATHY Atkins DAVID L MD August 06, 2019 15:38
--- NOTE | 2019-08-06 15:49 | NUR ---
SS following for discharge planning. SS reviewed pt chart and discussed with pt RN. Pt is from home and is currently on the vent. Pt had overdose of Xanax and was positive for THC and cocaine. Pt not medically stable for PAT team at this time. SS will continue to follow for discharge planning.
--- NOTE | 2019-08-06 15:55 | RAD ---
EXAM: CHEST 1 VIEW History: ET tube placement COMPARISON: Same day exam TECHNIQUE: Single portable radiograph of the chest Findings/ impression: The ET tube is identified in the trachea at the level of the clavicles. The feeding tube is identified seen below the left hemidiaphragm likely within the stomach. The right internal jugular line is unchanged. Diffuse white out of the left lung probably secondary to mucous plugging or volume loss. Electronically signed by: Oj Mosher MD (08/06/2019 3:52 PM) [id number]
[2019-08-06] MEDS ORDERED: ASPIRIN ENTERIC COATED 81 MG TABLET.DR. PO SCH (16:30)
[2019-08-06] MEDS ORDERED: ACETAMINOPHEN 650 MG SUPP.RECT. PR PRN (18:45)
--- NOTE | 2019-08-06 19:23 | NUR ---
Patient slow recovering O2 stats after central line placement. Chest Xray obtained and called into Dr. Hirsch. PEEP increased to 10 and FIO2 increased to 100% per Dr. Hirsch. Nawaf RT advanced ET tube 1cm per Dr. Hirsch. Patient recovers slowly when placed supine for any length of time.
[2019-08-06] MEDS: METOPROLOL TART IMMED RELEASE 25 MG TABLET. PO SCH (21:32)
[2019-08-06] MEDS: ACETAMINOPHEN 650 MG/20.3 ML SOLUTION. PEG PRN (21:32)
[2019-08-07] VITALS (24 sets, daily range): BP systolic 126–175; BP diastolic 58–82
[2019-08-07] MEDS: PIPERACILLIN/TAZOBACTAM 3.375 GM in IV NORMAL SALINE 50ML 50 ML IV SCH ×4 (00:31→18:20)
[2019-08-07] MEDS: ACETAMINOPHEN 650 MG/20.3 ML SOLUTION. PEG PRN ×2 (03:34→08:47)
[2019-08-07 05:30] LABS: BASO % 0 % (0-3); EOS % 0 % (0-3); HEMATOCRIT 36.8 % (39.0-53.0); HEMOGLOBIN 12.4 g/dL (13.0-17.5); LYMPH # 0.7 x10^3/uL (1.0-4.8); LYMPH % 5 % (24-48); MEAN CORPUSCULAR HEMOGLOBIN 30 pg (25-35); MEAN CORPUSCULAR HGB CONC 34 g/dL (31-37); MEAN CORPUSCULAR VOLUME 89 fL (79-100); MONO # 0.7 x10^3/uL (0.0-1.1); MONO % 5 % (0-9); NEUT # 13.5 x10^3/uL (1.8-7.7); NEUT % 91 % (31-73); PLATELET COUNT 149 x10^3/uL (140-400); RED BLOOD COUNT 4.15 x10^6/uL (4.30-5.70); RED CELL DISTRIBUTION WIDTH 13.4 % (11.5-14.5); WHITE BLOOD COUNT 14.9 x10^3/uL (4.0-11.0)
--- NOTE | 2019-08-07 05:41 | NUR ---
ASSESSMENT CHARTED. PT OFF OF SEDATION SINCE 199908/06/19 WITH NO CHANGE IN NEURAL STATUS. PLANS ARE TO DO EEG SOON. UPDATED FATHER X2 DURING NOC SHIFT AND MTN X 1. PT BEEN HAVING A FEVER OF 101.3-101.4 AND BEEN GIVEN TYLENOL FOR IT. 4AM TEMP 97.2. NO SIGNIFICANT EVENTS OVER NOC SHIFT. CONTINUE WITH PLAN OF CARE.
[2019-08-07 05:53] LABS: ALBUMIN 2.4 g/dL (3.4-5.0); ALBUMIN/GLOBULIN RATIO 0.8 (1.0-1.7); CALCIUM 8.3 mg/dL (8.5-10.1); CREATININE 1.3 mg/dL (0.7-1.3); GFR 70.4; POTASSIUM 3.4 mmol/L (3.5-5.1); TOTAL BILIRUBIN 0.7 mg/dL (0.2-1.0); TOTAL PROTEIN 5.6 g/dL (6.4-8.2)
[2019-08-07] MEDS: HEPARIN for SUB-Q USE 5,000 UNIT/ML VIAL. SQ SCH ×3 (06:01→21:58)
--- NOTE | 2019-08-07 07:13 | RAD ---
EXAM: Chest, single view. HISTORY: Respiratory failure. COMPARISON: 08/06/2019 FINDINGS: A frontal view of the chest is obtained. There has been interval improvement in aeration of the left lung. There is a small left pleural effusion and suspected left lower lobe partial consolidation or collapse. There is no pneumothorax. There is an endotracheal tube within the mid trachea. There is a nasogastric tube within the stomach. There is a right internal jugular catheter within the superior vena cava. There is stable mild increased interstitial opacity within the right lung. IMPRESSION: 1. Significant improved aeration of the left lung with residual central predominant interstitial infiltrate and partial consolidation or collapse of the left lower lobe. 2. Suspected small left pleural effusion. 3. Support lines and tubes, described above. Electronically signed by: Simi Reynolds MD (08/07/2019 7:10 AM) [id number]
--- NOTE | 2019-08-07 08:02 | CARD ---
MR#: [id number] Date of Study: 08/06/2019 Ordering Physician: MALINDA REYES, Referring Physician: MALINDA REYES, Tech: Kaylah Puente JACK APPROVED REPORT EXAM: Two-dimensional and M-mode echocardiogram with Doppler and color Doppler. Other Information Quality : Good INDICATION Cardiac Arrest-Drug Overdose 2D DIMENSIONS RVDd2.8 (2.9-3.5cm)Left Atrium(2D)2.5 (1.6-4.0cm) IVSd0.9 (0.7-1.1cm)Aortic Root(2D)2.7 (2.0-3.7cm) LVDd4.3 (3.9-5.9cm)LVOT Diameter1.9 (1.8-2.4cm) PWd0.9 (0.7-1.1cm)LVDs2.7 (2.5-4.0cm) FS (%) 30.0 %SV54.4 ml LVEF(%)60.0 (>50%) Aortic Valve AoV Peak Dann.185.4cm/sAoV VTI21.5cm AO Peak GR.13.7mmHgLVOT VTI 18.52cm AO Mean GR.6mmHgAVA (VTI)2.50cm2 Mitral Valve MV E Aabiozlj399.2cm/sMV DECEL CRHN567kv MV A Wbvsolud03.7cm/sE/A Ratio1.4 TDI Lateral E' P. V13.13cm/sMedial E' P. V8.88cm/s E/Lateral E'7.9E/Medial E'11.7 Tricuspid Valve TR P. Wljsdxif522nd/sRAP QJGOGTSH1dgQa TR Peak Gr.58thLiPYRJ10irPl Pulmonary Vein S1 Ddowouio39.3cm/sS2 Zsuyywnj52.55cm/s D2 Ptpueedz57.6cm/s LEFT VENTRICLE The left ventricle is normal size. There is normal left ventricular wall thickness. The left ventricu lar systolic function is normal. The Ejection Fraction is 55-60%. There is normal LV segmental wall m otion. The left ventricular diastolic function and filling is normal for age. RIGHT VENTRICLE The right ventricle is normal size. The right ventricular systolic function is normal. ATRIA The left atrium size is normal. The right atrium size is normal. The interatrial septum is intact wit h no evidence for an atrial septal defect or patent foramen ovale as noted on 2-D or Doppler imaging. AORTIC VALVE The aortic valve is normal in structure and function. Doppler and Color Flow revealed no significant aortic regurgitation. There is no significant aortic valvular stenosis. MITRAL VALVE The mitral valve is normal in structure and function. There is no evidence of mitral valve prolapse b ut the anterior mitral valve leaflet is redundant. There is no mitral valve stenosis. Doppler and Col or-flow revealed trace mitral regurgitation. TRICUSPID VALVE The tricuspid valve is normal in structure and function. Doppler and Color Flow revealed trace tricus pid regurgitation. The PA pressure was estimated at 37 mmHg. There is no tricuspid valve stenosis. PULMONIC VALVE The pulmonary valve is normal in structure and function. Doppler and Color Flow revealed trace pulmon ic valvular regurgitation. There is no pulmonic valvular stenosis. GREAT VESSELS The aortic root is normal in size. The ascending aorta is normal in size. The IVC is normal in size a nd collapses >50% with inspiration. PERICARDIAL EFFUSION There is no evidence of significant pericardial effusion. Critical Notification Critical Value: No <Conclusion> The left ventricular systolic function is normal. The Ejection Fraction is 55-60%. There is normal LV segmental wall motion. Trace mitral regurgitation. Trace tricuspid regurgitation. The PA pressure was estimated at 37 mmHg. There is no evidence of significant pericardial effusion. Signed by : Dominic Jaimes, Electronically Approved : 08/07/2019 08:02:21
[2019-08-07 08:15] LABS: BASE EXCESS ABG 4 mmol/L (-3-3); HCO3 ABG 28 mmol/L (21-28); PCO2 ABG 39 mmHg (35-46); PO2 ABG 80 mmHg (85-108); SAT O2 ABG 96 % (92-99)
--- NOTE | 2019-08-07 08:26 | PDOC ---
PULMONARY PROGRESS NOTES Subjective Maintenance assist control ventilation, no gag reflex, Vitals Vital Signs Date Time Temp Pulse Resp B/P (MAP) Pulse Ox O2 Delivery O2 Flow Rate FiO2 08/07/19 07:51 98 Ventilator 08/07/19 07:13 100.8 102 27 150/67 (94) 100.8 Lungs: Clear Cardiovascular: S1 Abdomen: Soft Extremities: No Edema Skin: Warm Labs Laboratory Tests Test 08/05/19 09:50 08/05/19 11:49 08/05/19 18:23 08/06/19 06:30 Urine Collection Type U cath Urine Color Yellow Urine Clarity Clear Urine pH 7.0 (<5.0-8.0) Urine Specific [place] 1.020 (1.000-1.030) Urine Protein Negative mg/dL (NEG-TRACE) Urine Glucose (UA) Negative mg/dL (NEG) Urine Ketones (Stick) Negative mg/dL (NEG) Urine Blood Negative (NEG) Urine Nitrite Negative (NEG) Urine Bilirubin Negative (NEG) Urine Urobilinogen Dipstick 1.0 mg/dL (0.2 mg/dL) Urine Leukocyte Esterase Negative (NEG) Urine RBC 6-10 /HPF (0-2) Urine WBC 1-4 /HPF (0-4) Urine Squamous Epithelial Cells Few /LPF Urine Bacteria Few /HPF (0-FEW) Urine Mucus Slight /LPF Glucose (Fingerstick) 115 mg/dL (70-99) 111 mg/dL (70-99) White Blood Count 16.0 x10^3/uL (4.0-11.0) Red Blood Count 4.52 x10^6/uL (4.30-5.70) Hemoglobin 13.5 g/dL (13.0-17.5) Hematocrit 40.4 % (39.0-53.0) Mean Corpuscular Volume 90 fL (79-100) Mean Corpuscular Hemoglobin 30 pg (25-35) Mean Corpuscular Hemoglobin Concent 33 g/dL (31-37) Red Cell Distribution Width 13.6 % (11.5-14.5) Platelet Count 134 x10^3/uL (140-400) Sodium Level 135 mmol/L (136-145) Potassium Level 4.0 mmol/L (3.5-5.1) Chloride Level 101 mmol/L (98-107) Carbon Dioxide Level 29 mmol/L (21-32) Anion Gap 5 (6-14) Blood Urea Nitrogen 15 mg/dL (8-26) Creatinine 1.4 mg/dL (0.7-1.3) Estimated GFR (Cockcroft-Gault) 64.6 BUN/Creatinine Ratio 11 (6-20) Glucose Level 93 mg/dL (70-99) Calcium Level 8.5 mg/dL (8.5-10.1) Magnesium Level 2.0 mg/dL (1.8-2.4) Total Bilirubin 0.4 mg/dL (0.2-1.0) Aspartate Amino Transf (AST/SGOT) 34 U/L (15-37) Alanine Aminotransferase (ALT/SGPT) 32 U/L (16-63) Alkaline Phosphatase 46 U/L (46-116) Total Protein 5.2 g/dL (6.4-8.2) Albumin 2.4 g/dL (3.4-5.0) Albumin/Globulin Ratio 0.9 (1.0-1.7) Test 08/06/19 08:25 08/07/19 00:34 08/07/19 05:00 O2 Saturation 99 % (92-99) Arterial Blood pH 7.45 (7.35-7.45) Arterial Blood pCO2 at Patient Temp 44 mmHg (35-46) Arterial Blood pO2 at Patient Temp 144 mmHg (85-108) Arterial Blood HCO3 30 mmol/L (21-28) Arterial Blood Base Excess 6 mmol/L (-3-3) FiO2 80 Glucose (Fingerstick) 82 mg/dL (70-99) White Blood Count 14.9 x10^3/uL (4.0-11.0) Red Blood Count 4.15 x10^6/uL (4.30-5.70) Hemoglobin 12.4 g/dL (13.0-17.5) Hematocrit 36.8 % (39.0-53.0) Mean Corpuscular Volume 89 fL (79-100) Mean Corpuscular Hemoglobin 30 pg (25-35) Mean Corpuscular Hemoglobin Concent 34 g/dL (31-37) Red Cell Distribution Width 13.4 % (11.5-14.5) Platelet Count 149 x10^3/uL (140-400) Neutrophils (%) (Auto) 91 % (31-73) Lymphocytes (%) (Auto) 5 % (24-48) Monocytes (%) (Auto) 5 % (0-9) Eosinophils (%) (Auto) 0 % (0-3) Basophils (%) (Auto) 0 % (0-3) Neutrophils # (Auto) 13.5 x10^3/uL (1.8-7.7) Lymphocytes # (Auto) 0.7 x10^3/uL (1.0-4.8) Monocytes # (Auto) 0.7 x10^3/uL (0.0-1.1) Eosinophils # (Auto) 0.0 x10^3/uL (0.0-0.7) Basophils # (Auto) 0.0 x10^3/uL (0.0-0.2) Sodium Level 137 mmol/L (136-145) Potassium Level 3.4 mmol/L (3.5-5.1) Chloride Level 100 mmol/L (98-107) Carbon Dioxide Level 29 mmol/L (21-32) Anion Gap 8 (6-14) Blood Urea Nitrogen 16 mg/dL (8-26) Creatinine 1.3 mg/dL (0.7-1.3) Estimated GFR (Cockcroft-Gault) 70.4 BUN/Creatinine Ratio 12 (6-20) Glucose Level 86 mg/dL (70-99) Calcium Level 8.3 mg/dL (8.5-10.1) Total Bilirubin 0.7 mg/dL (0.2-1.0) Aspartate Amino Transf (AST/SGOT) 27 U/L (15-37) Alanine Aminotransferase (ALT/SGPT) 27 U/L (16-63) Alkaline Phosphatase 63 U/L (46-116) Total Protein 5.6 g/dL (6.4-8.2) Albumin 2.4 g/dL (3.4-5.0) Albumin/Globulin Ratio 0.8 (1.0-1.7) Laboratory Tests Test 08/07/19 00:34 08/07/19 05:00 Glucose (Fingerstick) 82 mg/dL (70-99) White Blood Count 14.9 x10^3/uL (4.0-11.0) Red Blood Count 4.15 x10^6/uL (4.30-5.70) Hemoglobin 12.4 g/dL (13.0-17.5) Hematocrit 36.8 % (39.0-53.0) Mean Corpuscular Volume 89 fL (79-100) Mean Corpuscular Hemoglobin 30 pg (25-35) Mean Corpuscular Hemoglobin Concent 34 g/dL (31-37) Red Cell Distribution Width 13.4 % (11.5-14.5) Platelet Count 149 x10^3/uL (140-400) Neutrophils (%) (Auto) 91 % (31-73) Lymphocytes (%) (Auto) 5 % (24-48) Monocytes (%) (Auto) 5 % (0-9) Eosinophils (%) (Auto) 0 % (0-3) Basophils (%) (Auto) 0 % (0-3) Neutrophils # (Auto) 13.5 x10^3/uL (1.8-7.7) Lymphocytes # (Auto) 0.7 x10^3/uL (1.0-4.8) Monocytes # (Auto) 0.7 x10^3/uL (0.0-1.1) Eosinophils # (Auto) 0.0 x10^3/uL (0.0-0.7) Basophils # (Auto) 0.0 x10^3/uL (0.0-0.2) Sodium Level 137 mmol/L (136-145) Potassium Level 3.4 mmol/L (3.5-5.1) Chloride Level 100 mmol/L (98-107) Carbon Dioxide Level 29 mmol/L (21-32) Anion Gap 8 (6-14) Blood Urea Nitrogen 16 mg/dL (8-26) Creatinine 1.3 mg/dL (0.7-1.3) Estimated GFR (Cockcroft-Gault) 70.4 BUN/Creatinine Ratio 12 (6-20) Glucose Level 86 mg/dL (70-99) Calcium Level 8.3 mg/dL (8.5-10.1) Total Bilirubin 0.7 mg/dL (0.2-1.0) Aspartate Amino Transf (AST/SGOT) 27 U/L (15-37) Alanine Aminotransferase (ALT/SGPT) 27 U/L (16-63) Alkaline Phosphatase 63 U/L (46-116) Total Protein 5.6 g/dL (6.4-8.2) Albumin 2.4 g/dL (3.4-5.0) Albumin/Globulin Ratio 0.8 (1.0-1.7) Comments CT head - 08/04/2019 IMPRESSION: 1. No acute intracranial abnormality. 2. Paranasal sinus disease. Left maxillary sinus air-fluid level suggests acute sinusitis. CXR-- 08/05/2019 IMPRESSION: 1. Bilateral airspace opacities with satisfactory endotracheal intubation, ET tube terminating 4.8 cm above the mike. Enteric tube also appears in good position in the gastric fundus. Impression . IMPRESSION: 1. Acute hypoxic respiratory failure secondary to respiratory arrest from drug overdose and highly suspected aspiration pneumonia/ ALI/ARDS with severe hypoxia. 2. Drug overdose including cocaine, marijuana and Xanax. 3. Highly suspected anoxic brain injury/ toxic encephalopathy. The patient is clinically not brain . Has preserved brain stem reflexes. 4. Highly suspected aspiration pneumonia contributing to severe hypoxia. 5. Decreased urine output and acute kidney injury--improving 6. Shock. Status post fluid resuscitation. 7. ct head with no major events Plan . Follow neurology input Cardiac antibiotics Continue assist control ventilation EEG report noted Prognosis is poor Discussed with Total cumulative critical care time of 35 minutes, reviewing data, chest x- ray, labs. Formulating a plan KASHIF DEXTER MD August 07, 2019 08:26
[2019-08-07] MEDS ORDERED: FUROSEMIDE 20 MG/2 ML VIAL. IVP ONE (08:45)
[2019-08-07] MEDS: ASPIRIN CHEWABLE 81 MG TABLET. PO SCH (08:47)
[2019-08-07] MEDS: METOPROLOL TART IMMED RELEASE 25 MG TABLET. PO SCH ×2 (08:47→21:31)
[2019-08-07] MEDS: FAMOTIDINE 20 MG/2 ML VIAL IVP SCH ×2 (08:47→21:30)
[2019-08-07] MEDS: levETIRAcetam 500 MG in IV DEXTROSE 5% 100ML 100 ML IV SCH ×2 (08:48→21:17)
[2019-08-07 09:03] LABS: FIO2 ABG 60%+10
[2019-08-07] MEDS: POTASSIUM CHLORIDE 20MEQ 100 ML IV SCH ×2 (09:05→11:35)
--- NOTE | 2019-08-07 09:21 | PDOC ---
Infectious Disease Note Subjective Subjective intubated Off sedation since 1999 last pm Nonresponsive ROS ROS unable to obtain Vital Sign Vital Signs Vital Signs Date Time Temp Pulse Resp B/P (MAP) Pulse Ox O2 Delivery O2 Flow Rate FiO2 08/07/19 08:47 97 148/67 08/07/19 08:15 25 100 Ventilator 08/07/19 07:13 100.8 100.8 Physical Exam PHYSICAL EXAM GENERAL: Intubated, HEENT: Anicteric/ PERRL. ETT enteric tube. NECK: Supple. No JVD LUNGS: Decreased breath sound at the bases. HEART: S1, S2 regular. ABDOMEN: Soft, nontender, nondistended. Decreased Bowel sounds present. EXTREMITIES: No edema. No cyanosis. DERMATOLOGIC: Warm, dry. No generalized rash. Multiple tattoos. GENITOURINARY: Gonzalez in place. CLAIMS COORDINATOR: Unable to assess, intubated. PSYCHIATRIC: Unable to assess, intubated. IV: RIJ 08/05 Labs Lab Laboratory Tests Test 08/07/19 00:34 08/07/19 05:00 08/07/19 08:00 Glucose (Fingerstick) 82 mg/dL (70-99) White Blood Count 14.9 x10^3/uL (4.0-11.0) Red Blood Count 4.15 x10^6/uL (4.30-5.70) Hemoglobin 12.4 g/dL (13.0-17.5) Hematocrit 36.8 % (39.0-53.0) Mean Corpuscular Volume 89 fL (79-100) Mean Corpuscular Hemoglobin 30 pg (25-35) Mean Corpuscular Hemoglobin Concent 34 g/dL (31-37) Red Cell Distribution Width 13.4 % (11.5-14.5) Platelet Count 149 x10^3/uL (140-400) Neutrophils (%) (Auto) 91 % (31-73) Lymphocytes (%) (Auto) 5 % (24-48) Monocytes (%) (Auto) 5 % (0-9) Eosinophils (%) (Auto) 0 % (0-3) Basophils (%) (Auto) 0 % (0-3) Neutrophils # (Auto) 13.5 x10^3/uL (1.8-7.7) Lymphocytes # (Auto) 0.7 x10^3/uL (1.0-4.8) Monocytes # (Auto) 0.7 x10^3/uL (0.0-1.1) Eosinophils # (Auto) 0.0 x10^3/uL (0.0-0.7) Basophils # (Auto) 0.0 x10^3/uL (0.0-0.2) Sodium Level 137 mmol/L (136-145) Potassium Level 3.4 mmol/L (3.5-5.1) Chloride Level 100 mmol/L (98-107) Carbon Dioxide Level 29 mmol/L (21-32) Anion Gap 8 (6-14) Blood Urea Nitrogen 16 mg/dL (8-26) Creatinine 1.3 mg/dL (0.7-1.3) Estimated GFR (Cockcroft-Gault) 70.4 BUN/Creatinine Ratio 12 (6-20) Glucose Level 86 mg/dL (70-99) Calcium Level 8.3 mg/dL (8.5-10.1) Total Bilirubin 0.7 mg/dL (0.2-1.0) Aspartate Amino Transf (AST/SGOT) 27 U/L (15-37) Alanine Aminotransferase (ALT/SGPT) 27 U/L (16-63) Alkaline Phosphatase 63 U/L (46-116) Total Protein 5.6 g/dL (6.4-8.2) Albumin 2.4 g/dL (3.4-5.0) Albumin/Globulin Ratio 0.8 (1.0-1.7) O2 Saturation 96 % (92-99) Arterial Blood pH 7.47 (7.35-7.45) Arterial Blood pCO2 at Patient Temp 39 mmHg (35-46) Arterial Blood pO2 at Patient Temp 80 mmHg (85-108) Arterial Blood HCO3 28 mmol/L (21-28) Arterial Blood Base Excess 4 mmol/L (-3-3) FiO2 60%+10 Micro Microbiology 08/05/19 Blood Culture - Preliminary, Resulted NO GROWTH AFTER 1 DAY Objective Assessment Fever - ? seizure - reactive/ ? withdrawal 1. Acute hypoxic respiratory failure from drug overdose. 2. Status post cardiac arrest at outside hospital, [facility]. elevated Troponin - NSTEMI 3. Bilateral pulmonary infiltrates, highly suspected aspiration pneumonia. 4. Leukocytosis - better. 5. Polysubstance abuse with marijuana and cocaine. 6. Drug overdose with Xanax. 7. Encephalopathy, could have component of anoxic brain injury. 8. Hypoglycemia - corrected. 9. Acute kidney injury - better. 10. Abnormal liver function tests - better 11. Brief Seizure night 08/04 12. Sinusitis Plan Plan of Care 1. Discontinue Zyvox 5 given fever and Xray infiltrates but seems some improvement yet - Avoiding Vanc with CASH improving. Dose Doxy 08/06 2. D/c Meropenem 08/04 with ? seizure and dose Zosyn 08/05 3. Follow up labs and cultures at [facility]. 4. Neurology following 5. Pulmonary team following. 6. Condition critical. Discussed with SAYDA SCOTT MD August 07, 2019 09:20
--- NOTE | 2019-08-07 10:29 | PN ---
DATE: 08/07/2019 SUBJECTIVE: The patient is off sedation, intubated and mechanically ventilated. He apparently desaturated last night and required increased FiO2 to 100% with possible aspiration. Chest x-ray showed that he has possible left lower lobe collapse, has had a central line placed with the right internal jugular catheter within the superior vena cava. PHYSICAL EXAMINATION: GENERAL: When I examined him this morning, he was resting, propped up in bed, somewhat tachypneic. He was slightly pale, but no jaundice, cyanosis or thyromegaly. No jugular venous distention. No limb edema. VITAL SIGNS: His heart rate was 96, blood pressure 157/61, temperature was 100.8, respiratory rate was 28 and oxygen saturation was 99% on FiO2 of 60%. HEAD, EYES, EARS, NOSE AND THROAT: Showed normocephalic, atraumatic. He has orotracheal and orogastric tube. NECK: Supple. HEART: Showed normal first and second heart sounds. No gallop or murmur. CHEST: Showed central trachea, equal bilateral expansion air entry. I could not appreciate any crepitation or rhonchi anteriorly. ABDOMEN: Distended, soft, and nontender. NEUROLOGIC: He continued to be encephalopathic. His intake was ____ 4100. LABORATORY DATA: As of this morning, his white cell count was 14,900, hemoglobin 12.4, hematocrit 36.8, MCV 89, and platelet count of 149,000. His chemistry showed a serum sodium 137, potassium 3.4, chloride 100, bicarbonate 29, anion gap of 8, BUN 16, creatinine 1.3, and estimated GFR was 70 mL per minute. His glucose was 86 and calcium was 8.3. Total bilirubin, AST, ALT, and alkaline phosphatase were normal. Total protein was 5.6. Albumin 2.4. His blood gases this morning showed a pH of 7.47, pCO2 of 39, pO2 of 80, bicarbonate 28, and oxygen saturation was 96% on FiO2 of 60%. His blood cultures are so far negative. ASSESSMENT: 1. Acute hypoxic respiratory failure secondary to respiratory arrest from drug overdose and highly suspected aspiration pneumonia, ARDS. 2. Drug overdose including cocaine, marijuana, and Xanax. 3. Highly suspected anoxic encephalopathy. 4. Acute kidney injury that has resolved. 5. He is status post resuscitation PLAN: To continue with mechanical ventilation and wean as tolerated. Continue with IV antibiotic. Continue nutritional support. Continue to replenish his potassium. He apparently is scheduled for an EEG as recommended by the neurologist after discontinuation of sedation. RACHEL PAYNE MD DR: EDITH/chauncey JOB#: [id number] / [id number]
--- NOTE | 2019-08-07 10:36 | PDOC ---
PROGRESS NOTES Assessment Toxic encephalopathy Anoxic encephalopathy Urine toxic screen was positive for benzodiazepines, cocaine, and cannabinoids Brief seizure 08/04 night Plan Levetiracetam Supportive ICU care Off sedation now, will check EEG Will discuss with family after EEG Subjective none Objective Vital Signs Date Time Temp Pulse Resp B/P (MAP) Pulse Ox O2 Delivery O2 Flow Rate FiO2 08/07/19 09:23 96 28 157/61 (93) 99 Ventilator 08/07/19 07:13 100.8 100.8 Intake and Output 08/07/19 06:59 Intake Total 2888 ml Output Total 5520 ml Balance -2632 ml IV Total 631 ml Tube Feeding 857 ml Other 1400 ml Output Urine Total 5520 ml Gastric Drainage Total 0 ml PHYSICAL EXAM Eyes closed, no response to voice, intubated and sedated. Overbreathes vent PERRL. Absent oculocephalic reflex Positive gag CN: no focal findings. Muscle tone: normal. Muscle strength: slight withdrawal to pain DTR: 1+ Plantar reflex: silent Gait: not examined Sensory exam: not examined. Cerebellar: not examined Review of Relevant I have reviewed the following items giorgi (where applicable) has been applied. Labs Laboratory Tests Test 08/05/19 11:49 08/05/19 18:23 08/06/19 06:30 08/06/19 08:25 Glucose (Fingerstick) 115 mg/dL (70-99) 111 mg/dL (70-99) White Blood Count 16.0 x10^3/uL (4.0-11.0) Red Blood Count 4.52 x10^6/uL (4.30-5.70) Hemoglobin 13.5 g/dL (13.0-17.5) Hematocrit 40.4 % (39.0-53.0) Mean Corpuscular Volume 90 fL (79-100) Mean Corpuscular Hemoglobin 30 pg (25-35) Mean Corpuscular Hemoglobin Concent 33 g/dL (31-37) Red Cell Distribution Width 13.6 % (11.5-14.5) Platelet Count 134 x10^3/uL (140-400) Sodium Level 135 mmol/L (136-145) Potassium Level 4.0 mmol/L (3.5-5.1) Chloride Level 101 mmol/L (98-107) Carbon Dioxide Level 29 mmol/L (21-32) Anion Gap 5 (6-14) Blood Urea Nitrogen 15 mg/dL (8-26) Creatinine 1.4 mg/dL (0.7-1.3) Estimated GFR (Cockcroft-Gault) 64.6 BUN/Creatinine Ratio 11 (6-20) Glucose Level 93 mg/dL (70-99) Calcium Level 8.5 mg/dL (8.5-10.1) Magnesium Level 2.0 mg/dL (1.8-2.4) Total Bilirubin 0.4 mg/dL (0.2-1.0) Aspartate Amino Transf (AST/SGOT) 34 U/L (15-37) Alanine Aminotransferase (ALT/SGPT) 32 U/L (16-63) Alkaline Phosphatase 46 U/L (46-116) Total Protein 5.2 g/dL (6.4-8.2) Albumin 2.4 g/dL (3.4-5.0) Albumin/Globulin Ratio 0.9 (1.0-1.7) O2 Saturation 99 % (92-99) Arterial Blood pH 7.45 (7.35-7.45) Arterial Blood pCO2 at Patient Temp 44 mmHg (35-46) Arterial Blood pO2 at Patient Temp 144 mmHg (85-108) Arterial Blood HCO3 30 mmol/L (21-28) Arterial Blood Base Excess 6 mmol/L (-3-3) FiO2 80 Test 08/07/19 00:34 08/07/19 05:00 08/07/19 08:00 Glucose (Fingerstick) 82 mg/dL (70-99) White Blood Count 14.9 x10^3/uL (4.0-11.0) Red Blood Count 4.15 x10^6/uL (4.30-5.70) Hemoglobin 12.4 g/dL (13.0-17.5) Hematocrit 36.8 % (39.0-53.0) Mean Corpuscular Volume 89 fL (79-100) Mean Corpuscular Hemoglobin 30 pg (25-35) Mean Corpuscular Hemoglobin Concent 34 g/dL (31-37) Red Cell Distribution Width 13.4 % (11.5-14.5) Platelet Count 149 x10^3/uL (140-400) Neutrophils (%) (Auto) 91 % (31-73) Lymphocytes (%) (Auto) 5 % (24-48) Monocytes (%) (Auto) 5 % (0-9) Eosinophils (%) (Auto) 0 % (0-3) Basophils (%) (Auto) 0 % (0-3) Neutrophils # (Auto) 13.5 x10^3/uL (1.8-7.7) Lymphocytes # (Auto) 0.7 x10^3/uL (1.0-4.8) Monocytes # (Auto) 0.7 x10^3/uL (0.0-1.1) Eosinophils # (Auto) 0.0 x10^3/uL (0.0-0.7) Basophils # (Auto) 0.0 x10^3/uL (0.0-0.2) Sodium Level 137 mmol/L (136-145) Potassium Level 3.4 mmol/L (3.5-5.1) Chloride Level 100 mmol/L (98-107) Carbon Dioxide Level 29 mmol/L (21-32) Anion Gap 8 (6-14) Blood Urea Nitrogen 16 mg/dL (8-26) Creatinine 1.3 mg/dL (0.7-1.3) Estimated GFR (Cockcroft-Gault) 70.4 BUN/Creatinine Ratio 12 (6-20) Glucose Level 86 mg/dL (70-99) Calcium Level 8.3 mg/dL (8.5-10.1) Total Bilirubin 0.7 mg/dL (0.2-1.0) Aspartate Amino Transf (AST/SGOT) 27 U/L (15-37) Alanine Aminotransferase (ALT/SGPT) 27 U/L (16-63) Alkaline Phosphatase 63 U/L (46-116) Total Protein 5.6 g/dL (6.4-8.2) Albumin 2.4 g/dL (3.4-5.0) Albumin/Globulin Ratio 0.8 (1.0-1.7) O2 Saturation 96 % (92-99) Arterial Blood pH 7.47 (7.35-7.45) Arterial Blood pCO2 at Patient Temp 39 mmHg (35-46) Arterial Blood pO2 at Patient Temp 80 mmHg (85-108) Arterial Blood HCO3 28 mmol/L (21-28) Arterial Blood Base Excess 4 mmol/L (-3-3) FiO2 60%+10 Laboratory Tests Test 08/07/19 00:34 08/07/19 05:00 08/07/19 08:00 Glucose (Fingerstick) 82 mg/dL (70-99) White Blood Count 14.9 x10^3/uL (4.0-11.0) Red Blood Count 4.15 x10^6/uL (4.30-5.70) Hemoglobin 12.4 g/dL (13.0-17.5) Hematocrit 36.8 % (39.0-53.0) Mean Corpuscular Volume 89 fL (79-100) Mean Corpuscular Hemoglobin 30 pg (25-35) Mean Corpuscular Hemoglobin Concent 34 g/dL (31-37) Red Cell Distribution Width 13.4 % (11.5-14.5) Platelet Count 149 x10^3/uL (140-400) Neutrophils (%) (Auto) 91 % (31-73) Lymphocytes (%) (Auto) 5 % (24-48) Monocytes (%) (Auto) 5 % (0-9) Eosinophils (%) (Auto) 0 % (0-3) Basophils (%) (Auto) 0 % (0-3) Neutrophils # (Auto) 13.5 x10^3/uL (1.8-7.7) Lymphocytes # (Auto) 0.7 x10^3/uL (1.0-4.8) Monocytes # (Auto) 0.7 x10^3/uL (0.0-1.1) Eosinophils # (Auto) 0.0 x10^3/uL (0.0-0.7) Basophils # (Auto) 0.0 x10^3/uL (0.0-0.2) Sodium Level 137 mmol/L (136-145) Potassium Level 3.4 mmol/L (3.5-5.1) Chloride Level 100 mmol/L (98-107) Carbon Dioxide Level 29 mmol/L (21-32) Anion Gap 8 (6-14) Blood Urea Nitrogen 16 mg/dL (8-26) Creatinine 1.3 mg/dL (0.7-1.3) Estimated GFR (Cockcroft-Gault) 70.4 BUN/Creatinine Ratio 12 (6-20) Glucose Level 86 mg/dL (70-99) Calcium Level 8.3 mg/dL (8.5-10.1) Total Bilirubin 0.7 mg/dL (0.2-1.0) Aspartate Amino Transf (AST/SGOT) 27 U/L (15-37) Alanine Aminotransferase (ALT/SGPT) 27 U/L (16-63) Alkaline Phosphatase 63 U/L (46-116) Total Protein 5.6 g/dL (6.4-8.2) Albumin 2.4 g/dL (3.4-5.0) Albumin/Globulin Ratio 0.8 (1.0-1.7) O2 Saturation 96 % (92-99) Arterial Blood pH 7.47 (7.35-7.45) Arterial Blood pCO2 at Patient Temp 39 mmHg (35-46) Arterial Blood pO2 at Patient Temp 80 mmHg (85-108) Arterial Blood HCO3 28 mmol/L (21-28) Arterial Blood Base Excess 4 mmol/L (-3-3) FiO2 60%+10 Microbiology 08/05/19 Blood Culture - Preliminary, Resulted NO GROWTH AFTER 2 DAYS Medications Current Medications Sodium Bicarbonate (Sodium Bicarb Adult 8.4% Syr) 100 meq 1X STAT IV Last administered on 08/04/19at 12:32; Start 08/04/19 at 12:13; Stop 08/04/19 at 12:16; Status DC Meropenem 500 mg/ Sodium Chloride 50 ml @ 100 mls/hr Q8HRS IV Last administered on 08/05/19at 06:12; Start 08/04/19 at 14:00; Stop 08/05/19 at 07:44; Status DC Linezolid/Dextrose 300 ml @ 300 mls/hr Q12HR IV Last administered on 08/07/19at 08:48; Start 08/04/19 at 13:00; Stop 08/07/19 at 10:09; Status DC Dextrose (Dextrose 50%-Water Syringe) 12.5 gm PRN Q15MIN PRN IV SEE COMMENTS Last administered on 08/04/19at 13:22; Start 08/04/19 at 13:00 Dextrose 1,000 ml @ 100 mls/hr Q10H IV Last administered on 08/05/19at 21:14; Start 08/04/19 at 13:00; Stop 08/06/19 at 10:42; Status DC Dextrose (Dextrose 50%-Water Syringe) 12.5 gm PRN Q15MIN PRN IV SEE COMMENTS; Start 08/04/19 at 13:15; Status UNV Midazolam HCl 100 ml @ 0 mls/hr CONT PRN IV SEE PROTOCOL Last administered on 08/06/19at 18:21; Start 08/04/19 at 14:15 Norepinephrine Bitartrate 8 mg/ Dextrose 258 ml @ 15.267 mls/ hr CONT PRN IV PER PROTOCOL Last administered on 08/05/19at 07:48; Start 08/04/19 at 14:15 Furosemide (Lasix) 20 mg 1X ONCE IVP Last administered on 08/04/19at 16:59; Start 08/04/19 at 17:00; Stop 08/04/19 at 17:01; Status DC Heparin Sodium (Porcine) (Heparin Sodium) 5,000 unit Q8HRS SQ Last administered on 08/07/19at 06:01; Start 08/04/19 at 22:00 Famotidine (Pepcid Vial) 20 mg BID IVP Last administered on 08/07/19at 08:47; Start 08/04/19 at 21:00 Meropenem 500 mg/ Sodium Chloride 50 ml @ 100 mls/hr Q6HRS IV Last administered on 08/06/19at 06:23; Start 08/05/19 at 12:00; Stop 08/06/19 at 10:25; Status DC Magnesium Sulfate 50 ml @ 25 mls/hr 1X ONCE IV Last administered on 08/05/19at 08:21; Start 08/05/19 at 08:00; Stop 08/05/19 at 09:59; Status DC Lorazepam (Ativan Inj) 2 mg STK-MED ONCE .ROUTE ; Start 08/05/19 at 19:57; Stop 08/05/19 at 19:57; Status DC Levetiracetam 500 mg/Dextrose 105 ml @ 420 mls/hr Q12HR IV Last administered on 08/07/19at 08:48; Start 08/05/19 at 21:00 Midazolam HCl 50 mg/Sodium Chloride 50 ml @ 1 mls/hr CONT PRN IV SEE I/O RECORD; Start 08/05/19 at 21:00; Status UNV Digoxin (Lanoxin) 250 mcg 1X ONCE IV Last administered on 08/06/19at 00:19; Start 08/06/19 at 00:15; Stop 08/06/19 at 00:16; Status DC Digoxin (Lanoxin) 250 mcg 1X ONCE IV Last administered on 08/06/19at 02:46; Start 08/06/19 at 02:30; Stop 08/06/19 at 02:31; Status DC Digoxin (Lanoxin) 250 mcg 1X ONCE IV Last administered on 08/06/19 09:21; Start 08/06/19 at 08:30; Stop 08/06/19 at 08:31; Status DC Piperacillin Sod/ Tazobactam Sod 3.375 gm/Sodium Chloride 50 ml @ 100 mls/hr Q6HRS IV Last administered on 08/07/19 06:00; Start 08/06/19 at 12:00 Aspirin (Ecotrin) 81 mg DAILYWBKFT PO ; Start 08/06/19 at 16:30; Stop 08/06/19 at 17:28; Status DC Metoprolol Tartrate (Lopressor) 25 mg BID PO Last administered on 08/07/19at 08:47; Start 08/06/19 at 21:00 Aspirin (Aspirin Chewable) 81 mg DAILYWBKFT PO Last administered on 08/07/19 08:47; Start 08/07/19 at 08:00 Acetaminophen (Tylenol Supp) 650 mg PRN Q6HRS PRN CO MILD PAIN / TEMP > 100.3'F; Start 08/06/19 at 18:45; Stop 08/06/19 at 18:43; Status DC Acetaminophen (Tylenol) 650 mg PRN Q6HRS PRN PEG MILD PAIN / TEMP > 100.3'F Last administered on 08/07/19at 08:47; Start 08/06/19 at 18:45 Furosemide (Lasix) 20 mg 1X ONCE IVP Last administered on 08/07/19 09:00; Start 08/07/19 at 08:45; Stop 08/07/19 at 08:48; Status DC Potassium Chloride/Water 100 ml @ 100 mls/hr Q1H IV Last administered on 09:05; Start 08/07/19 at 09:00; Stop 08/07/19 at 10:59 Lorazepam (Ativan Inj) 2 mg STK-MED ONCE .ROUTE ; Start 08/05/19 at 20:00; Stop 08/07/19 at 08:55; Status DC Doxycycline Hyclate 100 mg/ Dextrose 100 ml @ 50 mls/hr Q12HR IV ; Start 08/07/19 at 10:15 Vitals/I & O Vital Sign - Last 24 Hours 08/06/19 08/06/19 08/06/19 08/06/19 11:00 12:30 12:36 12:50 Temp 99.6 99.6 Pulse 105 105 Resp B/P (MAP) 148/61 (90) 127/48 (74) Pulse Ox 94 96 96 O2 Delivery Ventilator Ventilator Ventilator Mechanical Ventilator 08/06/19 08/06/19 08/06/19 08/06/19 13:00 14:18 15:37 15:45 Temp 100.5 100.5 Pulse 104 100 100 Resp 24 B/P (MAP) 121/49 (73) 141/59 (86) 141/59 (86) Pulse Ox 96 95 95 93 O2 Delivery Ventilator Ventilator Ventilator Ventilator 08/06/19 08/06/19 08/06/19 08/06/19 16:21 16:40 17:56 18:22 Pulse 114 109 Resp B/P (MAP) 133/53 (79) 129/65 (86) Pulse Ox 94 100 98 O2 Delivery Ventilator Mechanical Ventilator Ventilator Ventilator 08/06/19 08/06/19 08/06/19 08/06/19 19:50 20:00 20:00 21:02 Temp 101.4 101.4 Pulse 100 102 Resp B/P (MAP) 146/66 (92) 148/60 (89) Pulse Ox 100 100 100 O2 Delivery Ventilator Mechanical Ventilator Ventilator Ventilator 08/06/19 08/06/19 08/06/19 08/06/19 21:32 22:00 23:00 23:53 Pulse 104 104 112 Resp B/P (MAP) 148/80 135/51 (79) 148/62 (90) Pulse Ox 100 100 100 O2 Delivery Ventilator Ventilator Ventilator 08/07/19 08/07/19 08/07/19 08/07/19 00:00 00:00 01:00 01:30 Temp 101.3 101.3 Pulse 109 110 Resp 25 B/P (MAP) 145/62 (89) 152/68 (96) Pulse Ox 100 100 98 O2 Delivery Ventilator Mechanical Ventilator Ventilator Ventilator 08/07/19 08/07/19 08/07/19 08/07/19 02:00 03:00 04:00 04:00 Temp 97.2 97.2 Pulse 115 112 108 Resp 27 B/P (MAP) 150/66 (94) 155/65 (95) 146/63 (90) Pulse Ox 99 99 100 O2 Delivery Ventilator Ventilator Mechanical Ventilator Ventilator 08/07/19 08/07/19 08/07/19 08/07/19 05:00 05:17 06:00 07:13 Temp 100.8 100.8 Pulse 99 98 102 Resp B/P (MAP) 149/66 (93) 153/69 (97) 150/67 (94) Pulse Ox 99 100 99 97 O2 Delivery Ventilator Ventilator Ventilator Ventilator 08/07/19 08/07/19 08/07/19 08/07/19 07:51 08:00 08:15 08:47 Pulse 97 97 Resp 25 B/P (MAP) 148/67 (94) 148/67 Pulse Ox 98 100 O2 Delivery Ventilator Mechanical Ventilator Ventilator 08/07/19 09:23 Pulse 96 Resp 28 B/P (MAP) 157/61 (93) Pulse Ox 99 O2 Delivery Ventilator Intake and Output 08/06/19 08/06/19 08/07/19 14:59 22:59 06:59 Intake Total 505 ml 1399 ml 984 ml Output Total 2250 ml 1350 ml 1920 ml Balance -1745 ml 49 ml -936 ml KEITH WILLOUGHBY MD August 07, 2019 10:36
[2019-08-07] MEDS: DOXYCYCLINE HYCLATE 100 MG in IV DEXTROSE 5% 100ML 100 ML IV SCH ×2 (11:40→21:17)
--- NOTE | 2019-08-07 11:45 | PDOC ---
CANDE HERRING [employer] MACHINE OFFBEARER 08/07/19 1144: CARDIO Progress Notes Date and Time Date of Service 08/07/2019 Time of Evaluation 1130 Subjective Subjective: Other (intubated) Vitals Vitals Vital Signs Date Time Temp Pulse Resp B/P (MAP) Pulse Ox O2 Delivery O2 Flow Rate FiO2 08/07/19 11:18 112 28 175/82 (113) 96 Ventilator 08/07/19 07:13 100.8 100.8 Weight Weight [ ] Input and Output Intake and Output l Intake and Output 08/07/19 06:59 Intake Total 2888 ml Output Total 5520 ml Balance -2632 ml IV Total 631 ml Tube Feeding 857 ml Other 1400 ml Output Urine Total 5520 ml Gastric Drainage Total 0 ml Laboratory Labs Laboratory Tests Test 08/07/19 00:34 08/07/19 05:00 08/07/19 08:00 Glucose (Fingerstick) 82 mg/dL (70-99) White Blood Count 14.9 x10^3/uL (4.0-11.0) Red Blood Count 4.15 x10^6/uL (4.30-5.70) Hemoglobin 12.4 g/dL (13.0-17.5) Hematocrit 36.8 % (39.0-53.0) Mean Corpuscular Volume 89 fL (79-100) Mean Corpuscular Hemoglobin 30 pg (25-35) Mean Corpuscular Hemoglobin Concent 34 g/dL (31-37) Red Cell Distribution Width 13.4 % (11.5-14.5) Platelet Count 149 x10^3/uL (140-400) Neutrophils (%) (Auto) 91 % (31-73) Lymphocytes (%) (Auto) 5 % (24-48) Monocytes (%) (Auto) 5 % (0-9) Eosinophils (%) (Auto) 0 % (0-3) Basophils (%) (Auto) 0 % (0-3) Neutrophils # (Auto) 13.5 x10^3/uL (1.8-7.7) Lymphocytes # (Auto) 0.7 x10^3/uL (1.0-4.8) Monocytes # (Auto) 0.7 x10^3/uL (0.0-1.1) Eosinophils # (Auto) 0.0 x10^3/uL (0.0-0.7) Basophils # (Auto) 0.0 x10^3/uL (0.0-0.2) Sodium Level 137 mmol/L (136-145) Potassium Level 3.4 mmol/L (3.5-5.1) Chloride Level 100 mmol/L (98-107) Carbon Dioxide Level 29 mmol/L (21-32) Anion Gap 8 (6-14) Blood Urea Nitrogen 16 mg/dL (8-26) Creatinine 1.3 mg/dL (0.7-1.3) Estimated GFR (Cockcroft-Gault) 70.4 BUN/Creatinine Ratio 12 (6-20) Glucose Level 86 mg/dL (70-99) Calcium Level 8.3 mg/dL (8.5-10.1) Total Bilirubin 0.7 mg/dL (0.2-1.0) Aspartate Amino Transf (AST/SGOT) 27 U/L (15-37) Alanine Aminotransferase (ALT/SGPT) 27 U/L (16-63) Alkaline Phosphatase 63 U/L (46-116) Total Protein 5.6 g/dL (6.4-8.2) Albumin 2.4 g/dL (3.4-5.0) Albumin/Globulin Ratio 0.8 (1.0-1.7) O2 Saturation 96 % (92-99) Arterial Blood pH 7.47 (7.35-7.45) Arterial Blood pCO2 at Patient Temp 39 mmHg (35-46) Arterial Blood pO2 at Patient Temp 80 mmHg (85-108) Arterial Blood HCO3 28 mmol/L (21-28) Arterial Blood Base Excess 4 mmol/L (-3-3) FiO2 60%+10 Microbiology Micro Microbiology 08/05/19 Blood Culture - Preliminary, Resulted NO GROWTH AFTER 2 DAYS Physical Exam HEENT: Neck Supple W Full Motion Chest: Symmetric LUNGS: Other (mechanical vent ) Heart: RRR (SR) Abdomen: Other (soft ) Extremities: No Edema Neurology: other (sedated) Assessment Assessment 1. Acute respiratory failure secondary to likely aspiration with associated illicit drug overdose. intubated/vent. per pulmonary 2. Anoxic/toxic encephalopathy: neurology following. EEG pending 3. PEA arrest; secondary OD 4. NSTEMI; trop 2.485 in the setting acute respiratory failure and prolonged CPR/substance abuse. 4. PAFIB with RVR; s/p IV dig. converted back to SR/ST. EF and WM nml 5. CASH; Cr normalized 6. HTN; labile episode 7. Aspiration PNA/fever 8. Seizure: new 9. Substance abuse: with cocaine, marijuana, and Xanax. Recommendations 1. No further rhythm ectopies. Continue metoprolol 2. ASA, replace K 3. Supportive care MADISON HESS MD 08/07/19 1508: CARDIO Progress Notes Assessment Assessment Patient seen and examined. Agree with QUALITY ASSURANCE INSPECTOR's assessment and plan. PAF presently back in sinus rhythm 2D echo showed normal LV systolic function Non-STEMI most probably type II but we will consider ischemic evaluation if he has meaningful neurological recovery CANDE HERRING APRN August 07, 2019 11:44 MADISON HESS MD August 07, 2019 15:08
--- NOTE | 2019-08-07 14:02 | EEG ---
DATE OF SERVICE: 08/07/2019 EEG NUMBER: [id number]. OBJECTIVE: The patient is a 19-year-old male status post benzodiazepine overdose and cardiac arrest. He had a seizure 2 nights ago. DESCRIPTION: This is a digital study. Electrodes are placed according to the international 10-20 system. Bipolar referential montages are available. Activation procedures typically include hyperventilation and intermittent photic stimulation. INTERPRETATION: The waking background consists of 12-13 Hz, 20-50 microvolt activity without reactivity. Hyperventilation is not performed. Intermittent photic stimulation is noncontributory. Sleep is not achieved. IMPRESSION: This electroencephalogram with the patient in an obtunded state is abnormal because of presence of diffuse fast activity. This finding may be seen in alpha coma. No epileptic activity is observed. Thank you for letting us help with the patient's care. KEITH WILLOUGHBY MD DR: RAY/chauncey JOB#: [id number] / [id number]
--- NOTE | 2019-08-07 15:03 | NUR ---
SS following up with discharge planning. SS discussed with pt RN. Pt remains on the vent at this time. Per RN, pt is not stable. SS will continue to follow for discharge planning.
[2019-08-07] MEDS: MIDAZOLAM 100mg/100ml NS BAG 100 ML IV PRN (20:07)
[2019-08-08] VITALS (24 sets, daily range): BP systolic 121–178; BP diastolic 55–89
[2019-08-08 05:49] LABS: ALBUMIN 2.3 g/dL (3.4-5.0); ALBUMIN/GLOBULIN RATIO 0.6 (1.0-1.7); CALCIUM 8.4 mg/dL (8.5-10.1); CREATININE 1.2 mg/dL (0.7-1.3); GFR 77.2; POTASSIUM 3.6 mmol/L (3.5-5.1); TOTAL BILIRUBIN 0.8 mg/dL (0.2-1.0); TOTAL PROTEIN 6.1 g/dL (6.4-8.2)
[2019-08-08 05:53] LABS: BASO % 0 % (0-3); EOS # 0.1 x10^3/uL (0.0-0.7); EOS % 1 % (0-3); HEMATOCRIT 35.2 % (39.0-53.0); HEMOGLOBIN 11.7 g/dL (13.0-17.5); LYMPH % 8 % (24-48); MEAN CORPUSCULAR HEMOGLOBIN 30 pg (25-35); MEAN CORPUSCULAR HGB CONC 33 g/dL (31-37); MEAN CORPUSCULAR VOLUME 89 fL (79-100); MONO # 1.2 x10^3/uL (0.0-1.1); MONO % 9 % (0-9); NEUT # 10.5 x10^3/uL (1.8-7.7); NEUT % 82 % (31-73); PLATELET COUNT 174 x10^3/uL (140-400); RED BLOOD COUNT 3.94 x10^6/uL (4.30-5.70); RED CELL DISTRIBUTION WIDTH 13.2 % (11.5-14.5); WHITE BLOOD COUNT 12.9 x10^3/uL (4.0-11.0)
[2019-08-08] MEDS: PIPERACILLIN/TAZOBACTAM 3.375 GM in IV NORMAL SALINE 50ML 50 ML IV SCH ×5 (06:16→18:28)
[2019-08-08] MEDS: HEPARIN for SUB-Q USE 5,000 UNIT/ML VIAL. SQ SCH ×3 (06:21→23:12)
--- NOTE | 2019-08-08 08:35 | PDOC ---
Infectious Disease Note Subjective Subjective intubated on Versed Nonresponsive ROS ROS unable to obtain Vital Sign Vital Signs Vital Signs Date Time Temp Pulse Resp B/P (MAP) Pulse Ox O2 Delivery O2 Flow Rate FiO2 08/08/19 08:21 98 Ventilator 08/07/19 21:31 108 140/60 08/07/19 18:00 28 08/07/19 16:00 99.7 99.7 Physical Exam PHYSICAL EXAM GENERAL: Intubated, HEENT: Anicteric/ PERRL. ETT enteric tube. NECK: Supple. No JVD LUNGS: Decreased breath sound at the bases. HEART: S1, S2 regular. ABDOMEN: Soft, nontender, nondistended. Decreased Bowel sounds present. EXTREMITIES: No edema. No cyanosis. DERMATOLOGIC: Warm, dry. No generalized rash. Multiple tattoos. GENITOURINARY: Gonzalez in place. [employer] [place]: Unable to assess, intubated. PSYCHIATRIC: Unable to assess, intubated. IV: RIJ 08/05 Labs Lab Laboratory Tests Test 08/08/19 01:09 08/08/19 05:15 08/08/19 05:30 Glucose (Fingerstick) 100 mg/dL (70-99) 79 mg/dL (70-99) White Blood Count 12.9 x10^3/uL (4.0-11.0) Red Blood Count 3.94 x10^6/uL (4.30-5.70) Hemoglobin 11.7 g/dL (13.0-17.5) Hematocrit 35.2 % (39.0-53.0) Mean Corpuscular Volume 89 fL (79-100) Mean Corpuscular Hemoglobin 30 pg (25-35) Mean Corpuscular Hemoglobin Concent 33 g/dL (31-37) Red Cell Distribution Width 13.2 % (11.5-14.5) Platelet Count 174 x10^3/uL (140-400) Neutrophils (%) (Auto) 82 % (31-73) Lymphocytes (%) (Auto) 8 % (24-48) Monocytes (%) (Auto) 9 % (0-9) Eosinophils (%) (Auto) 1 % (0-3) Basophils (%) (Auto) 0 % (0-3) Neutrophils # (Auto) 10.5 x10^3/uL (1.8-7.7) Lymphocytes # (Auto) 1.0 x10^3/uL (1.0-4.8) Monocytes # (Auto) 1.2 x10^3/uL (0.0-1.1) Eosinophils # (Auto) 0.1 x10^3/uL (0.0-0.7) Basophils # (Auto) 0.0 x10^3/uL (0.0-0.2) Sodium Level 140 mmol/L (136-145) Potassium Level 3.6 mmol/L (3.5-5.1) Chloride Level 102 mmol/L (98-107) Carbon Dioxide Level 31 mmol/L (21-32) Anion Gap 7 (6-14) Blood Urea Nitrogen 19 mg/dL (8-26) Creatinine 1.2 mg/dL (0.7-1.3) Estimated GFR (Cockcroft-Gault) 77.2 BUN/Creatinine Ratio 16 (6-20) Glucose Level 92 mg/dL (70-99) Calcium Level 8.4 mg/dL (8.5-10.1) Total Bilirubin 0.8 mg/dL (0.2-1.0) Aspartate Amino Transf (AST/SGOT) 28 U/L (15-37) Alanine Aminotransferase (ALT/SGPT) 26 U/L (16-63) Alkaline Phosphatase 72 U/L (46-116) Total Protein 6.1 g/dL (6.4-8.2) Albumin 2.3 g/dL (3.4-5.0) Albumin/Globulin Ratio 0.6 (1.0-1.7) Micro Microbiology 08/05/19 Blood Culture - Preliminary, Resulted NO GROWTH AFTER 1 DAY Objective Assessment Fever - ? seizure - reactive/ ? withdrawal 1. Acute hypoxic respiratory failure from drug overdose. 60 Fi02 and 10 PEEP 2. Status post cardiac arrest at outside hospital, PEA. elevated Troponin - NSTEMI 3. Bilateral pulmonary infiltrates, highly suspected aspiration pneumonia. 4. Leukocytosis - better. 5. Polysubstance abuse with marijuana and cocaine. 6. Drug overdose with Xanax. 7. Encephalopathy, could have component of anoxic brain injury."EEG shows rather fast acitivity, possible alpha coma" 8. Hypoglycemia - corrected. 9. Acute kidney injury - better. 10. Abnormal liver function tests - better 11. Brief Seizure night 08/04 ? 5/5 per nursing 12. Sinusitis Plan Plan of Care Check COVID with ongoing fever 1. Discontinue Zyvox 5/ given fever and Xray infiltrates but seems some improvement yet - Avoiding Vanc with CASH improving. Dose Doxy 08/06 2. D/c Meropenem 08/04 with ? seizure and dose Zosyn 08/05 3. Follow up labs in am and cultures at [facility]. 4. Neurology following 5. Pulmonary team following. 6. Condition critical. Discussed with SAYDA SCOTT MD August 08, 2019 08:35
--- NOTE | 2019-08-08 08:37 | RAD ---
EXAM: AP chest radiograph DATE: 08/08/2019 9:00 AM INDICATION: Follow-up lines and tubes, left lung opacities COMPARISON: Chest radiograph 08/07/2019 FINDINGS: AP portable upright chest radiograph. The endotracheal tube is in similar position terminating 6.6 cm above the mike. A right internal jugular central venous catheter tip projects over the superior vena cava. Nasogastric tube is coiled in the stomach. The heart and mediastinum are normal. Lungs are well expanded. There is improved aeration of the left lung with resolution of retrocardiac opacities and resolution of left pleural effusion. The right lung is clear. No pneumothorax. No acute osseous abnormality. IMPRESSION: 1. Improved aeration of the left lung with resolution of retrocardiac opacities and small left pleural effusion. 2. Unchanged lines and tubes. Electronically signed by: Joanne Flores MD (08/08/2019 8:33 AM) [id number]
[2019-08-08 08:50] LABS: BASE EXCESS ABG 4 mmol/L (-3-3); CORRECTED PCO2 ABG 44 mmHg; CORRECTED PH ABG 7.44; CORRECTED PO2 ABG 160 mmHg; HCO3 ABG 28 mmol/L (21-28); SAT O2 ABG 99 % (92-99)
[2019-08-08] MEDS: FAMOTIDINE 20 MG/2 ML VIAL IVP SCH ×2 (08:52→23:11)
[2019-08-08] MEDS: levETIRAcetam 500 MG in IV DEXTROSE 5% 100ML 100 ML IV SCH ×2 (08:52→23:10)
[2019-08-08] MEDS: DOXYCYCLINE HYCLATE 100 MG in IV DEXTROSE 5% 100ML 100 ML IV SCH ×2 (08:55→23:11)
[2019-08-08] MEDS: METOPROLOL TART IMMED RELEASE 25 MG TABLET. PO SCH ×2 (08:56→23:23)
[2019-08-08] MEDS: ASPIRIN CHEWABLE 81 MG TABLET. PO SCH (08:56)
[2019-08-08 10:00] LABS: PCO2 ABG 41 mmHg (35-46); PO2 ABG 149 mmHg (85-108)
[2019-08-08 10:01] LABS: FIO2 ABG 60
--- NOTE | 2019-08-08 11:15 | PDOC ---
PROGRESS NOTES Assessment EEG, 08/06, consistent with Alpha coma Toxic encephalopathy Anoxic encephalopathy Urine toxic screen was positive for benzodiazepines, cocaine, and cannabinoids Brief seizure 08/04 night, possibly yesterday as well Plan Levetiracetam Full supportive ICU care Discussed with family yesterday, alpha coma and responsiveness are somewhat hopeful findings. Given patient's age, lack of comorbidities, I suspect that he will need long-term ICU care, eventually will be getting a PEG and trache if he does not wake up further Subjective None Objective Vital Signs Date Time Temp Pulse Resp B/P (MAP) Pulse Ox O2 Delivery O2 Flow Rate FiO2 08/08/19 10:00 100.4 84 24 121/59 (79) 98 Ventilator 100.4 Intake and Output 08/08/19 06:59 Intake Total 3389.25 ml Output Total 4210 ml Balance -820.75 ml IV Total 1010.25 ml Tube Feeding 1966 ml Other 413 ml Output Urine Total 4210 ml Gastric Drainage Total 0 ml # Bowel Movements 2 PHYSICAL EXAM Eyes closed, no response to voice, intubated and sedated. Overbreathes vent PERRL. Absent oculocephalic reflex Positive gag CN: no focal findings. Muscle tone: normal. Muscle strength: slight withdrawal to pain DTR: 1+ Plantar reflex: silent Gait: not examined Sensory exam: not examined. Cerebellar: not examined Review of Relevant I have reviewed the following items giorgi (where applicable) has been applied. Labs Laboratory Tests Test 08/07/19 00:34 08/07/19 05:00 08/07/19 08:00 08/08/19 01:09 Glucose (Fingerstick) 82 mg/dL (70-99) 100 mg/dL (70-99) White Blood Count 14.9 x10^3/uL (4.0-11.0) Red Blood Count 4.15 x10^6/uL (4.30-5.70) Hemoglobin 12.4 g/dL (13.0-17.5) Hematocrit 36.8 % (39.0-53.0) Mean Corpuscular Volume 89 fL (79-100) Mean Corpuscular Hemoglobin 30 pg (25-35) Mean Corpuscular Hemoglobin Concent 34 g/dL (31-37) Red Cell Distribution Width 13.4 % (11.5-14.5) Platelet Count 149 x10^3/uL (140-400) Neutrophils (%) (Auto) 91 % (31-73) Lymphocytes (%) (Auto) 5 % (24-48) Monocytes (%) (Auto) 5 % (0-9) Eosinophils (%) (Auto) 0 % (0-3) Basophils (%) (Auto) 0 % (0-3) Neutrophils # (Auto) 13.5 x10^3/uL (1.8-7.7) Lymphocytes # (Auto) 0.7 x10^3/uL (1.0-4.8) Monocytes # (Auto) 0.7 x10^3/uL (0.0-1.1) Eosinophils # (Auto) 0.0 x10^3/uL (0.0-0.7) Basophils # (Auto) 0.0 x10^3/uL (0.0-0.2) Sodium Level 137 mmol/L (136-145) Potassium Level 3.4 mmol/L (3.5-5.1) Chloride Level 100 mmol/L (98-107) Carbon Dioxide Level 29 mmol/L (21-32) Anion Gap 8 (6-14) Blood Urea Nitrogen 16 mg/dL (8-26) Creatinine 1.3 mg/dL (0.7-1.3) Estimated GFR (Cockcroft-Gault) 70.4 BUN/Creatinine Ratio 12 (6-20) Glucose Level 86 mg/dL (70-99) Calcium Level 8.3 mg/dL (8.5-10.1) Total Bilirubin 0.7 mg/dL (0.2-1.0) Aspartate Amino Transf (AST/SGOT) 27 U/L (15-37) Alanine Aminotransferase (ALT/SGPT) 27 U/L (16-63) Alkaline Phosphatase 63 U/L (46-116) Total Protein 5.6 g/dL (6.4-8.2) Albumin 2.4 g/dL (3.4-5.0) Albumin/Globulin Ratio 0.8 (1.0-1.7) O2 Saturation 96 % (92-99) Arterial Blood pH 7.47 (7.35-7.45) Arterial Blood pCO2 at Patient Temp 39 mmHg (35-46) Arterial Blood pO2 at Patient Temp 80 mmHg (85-108) Arterial Blood HCO3 28 mmol/L (21-28) Arterial Blood Base Excess 4 mmol/L (-3-3) FiO2 60%+10 Test 08/08/19 05:15 08/08/19 05:30 08/08/19 08:30 White Blood Count 12.9 x10^3/uL (4.0-11.0) Red Blood Count 3.94 x10^6/uL (4.30-5.70) Hemoglobin 11.7 g/dL (13.0-17.5) Hematocrit 35.2 % (39.0-53.0) Mean Corpuscular Volume 89 fL (79-100) Mean Corpuscular Hemoglobin 30 pg (25-35) Mean Corpuscular Hemoglobin Concent 33 g/dL (31-37) Red Cell Distribution Width 13.2 % (11.5-14.5) Platelet Count 174 x10^3/uL (140-400) Neutrophils (%) (Auto) 82 % (31-73) Lymphocytes (%) (Auto) 8 % (24-48) Monocytes (%) (Auto) 9 % (0-9) Eosinophils (%) (Auto) 1 % (0-3) Basophils (%) (Auto) 0 % (0-3) Neutrophils # (Auto) 10.5 x10^3/uL (1.8-7.7) Lymphocytes # (Auto) 1.0 x10^3/uL (1.0-4.8) Monocytes # (Auto) 1.2 x10^3/uL (0.0-1.1) Eosinophils # (Auto) 0.1 x10^3/uL (0.0-0.7) Basophils # (Auto) 0.0 x10^3/uL (0.0-0.2) Sodium Level 140 mmol/L (136-145) Potassium Level 3.6 mmol/L (3.5-5.1) Chloride Level 102 mmol/L (98-107) Carbon Dioxide Level 31 mmol/L (21-32) Anion Gap 7 (6-14) Blood Urea Nitrogen 19 mg/dL (8-26) Creatinine 1.2 mg/dL (0.7-1.3) Estimated GFR (Cockcroft-Gault) 77.2 BUN/Creatinine Ratio 16 (6-20) Glucose Level 92 mg/dL (70-99) Calcium Level 8.4 mg/dL (8.5-10.1) Total Bilirubin 0.8 mg/dL (0.2-1.0) Aspartate Amino Transf (AST/SGOT) 28 U/L (15-37) Alanine Aminotransferase (ALT/SGPT) 26 U/L (16-63) Alkaline Phosphatase 72 U/L (46-116) Total Protein 6.1 g/dL (6.4-8.2) Albumin 2.3 g/dL (3.4-5.0) Albumin/Globulin Ratio 0.6 (1.0-1.7) Glucose (Fingerstick) 79 mg/dL (70-99) O2 Saturation 99 % (92-99) Arterial Blood pH 7.46 (7.35-7.45) Arterial Blood pH (Temp corrected) 7.44 Arterial Blood pCO2 at Patient Temp 41 mmHg (35-46) Arterial Blood pCO2 (Temp correct) 44 mmHg Arterial Blood pO2 at Patient Temp 149 mmHg (85-108) Arterial Blood pO2 (Temp corrected) 160 mmHg Arterial Blood HCO3 28 mmol/L (21-28) Arterial Blood Base Excess 4 mmol/L (-3-3) FiO2 60 Laboratory Tests Test 08/08/19 01:09 08/08/19 05:15 08/08/19 05:30 08/08/19 08:30 Glucose (Fingerstick) 100 mg/dL (70-99) 79 mg/dL (70-99) White Blood Count 12.9 x10^3/uL (4.0-11.0) Red Blood Count 3.94 x10^6/uL (4.30-5.70) Hemoglobin 11.7 g/dL (13.0-17.5) Hematocrit 35.2 % (39.0-53.0) Mean Corpuscular Volume 89 fL (79-100) Mean Corpuscular Hemoglobin 30 pg (25-35) Mean Corpuscular Hemoglobin Concent 33 g/dL (31-37) Red Cell Distribution Width 13.2 % (11.5-14.5) Platelet Count 174 x10^3/uL (140-400) Neutrophils (%) (Auto) 82 % (31-73) Lymphocytes (%) (Auto) 8 % (24-48) Monocytes (%) (Auto) 9 % (0-9) Eosinophils (%) (Auto) 1 % (0-3) Basophils (%) (Auto) 0 % (0-3) Neutrophils # (Auto) 10.5 x10^3/uL (1.8-7.7) Lymphocytes # (Auto) 1.0 x10^3/uL (1.0-4.8) Monocytes # (Auto) 1.2 x10^3/uL (0.0-1.1) Eosinophils # (Auto) 0.1 x10^3/uL (0.0-0.7) Basophils # (Auto) 0.0 x10^3/uL (0.0-0.2) Sodium Level 140 mmol/L (136-145) Potassium Level 3.6 mmol/L (3.5-5.1) Chloride Level 102 mmol/L (98-107) Carbon Dioxide Level 31 mmol/L (21-32) Anion Gap 7 (6-14) Blood Urea Nitrogen 19 mg/dL (8-26) Creatinine 1.2 mg/dL (0.7-1.3) Estimated GFR (Cockcroft-Gault) 77.2 BUN/Creatinine Ratio 16 (6-20) Glucose Level 92 mg/dL (70-99) Calcium Level 8.4 mg/dL (8.5-10.1) Total Bilirubin 0.8 mg/dL (0.2-1.0) Aspartate Amino Transf (AST/SGOT) 28 U/L (15-37) Alanine Aminotransferase (ALT/SGPT) 26 U/L (16-63) Alkaline Phosphatase 72 U/L (46-116) Total Protein 6.1 g/dL (6.4-8.2) Albumin 2.3 g/dL (3.4-5.0) Albumin/Globulin Ratio 0.6 (1.0-1.7) O2 Saturation 99 % (92-99) Arterial Blood pH 7.46 (7.35-7.45) Arterial Blood pH (Temp corrected) 7.44 Arterial Blood pCO2 at Patient Temp 41 mmHg (35-46) Arterial Blood pCO2 (Temp correct) 44 mmHg Arterial Blood pO2 at Patient Temp 149 mmHg (85-108) Arterial Blood pO2 (Temp corrected) 160 mmHg Arterial Blood HCO3 28 mmol/L (21-28) Arterial Blood Base Excess 4 mmol/L (-3-3) FiO2 60 Microbiology 08/05/19 Blood Culture - Preliminary, Resulted NO GROWTH AFTER 3 DAYS Medications Current Medications Sodium Bicarbonate (Sodium Bicarb Adult 8.4% Syr) 100 meq 1X STAT IV Last administered on 08/04/19 12:32; Start 08/04/19 at 12:13; Stop 08/04/19 at 12:16; Status DC Meropenem 500 mg/ Sodium Chloride 50 ml @ 100 mls/hr Q8HRS IV Last administered on 08/05/19 06:12; Start 08/04/19 at 14:00; Stop 08/05/19 at 07:44; Status DC Linezolid/Dextrose 300 ml @ 300 mls/hr Q12HR IV Last administered on 08/07/19at 08:48; Start 08/04/19 at 13:00; Stop 08/07/19 at 10:09; Status DC Dextrose (Dextrose 50%-Water Syringe) 12.5 gm PRN Q15MIN PRN IV SEE COMMENTS Last administered on 08/04/19at 13:22; Start 08/04/19 at 13:00 Dextrose 1,000 ml @ 100 mls/hr Q10H IV Last administered on 08/05/19 21:14; Start 08/04/19 at 13:00; Stop 08/06/19 at 10:42; Status DC Dextrose (Dextrose 50%-Water Syringe) 12.5 gm PRN Q15MIN PRN IV SEE COMMENTS; Start 08/04/19 at 13:15; Status UNV Midazolam HCl 100 ml @ 0 mls/hr CONT PRN IV SEE PROTOCOL Last administered on 08/07/19at 20:07; Start 08/04/19 at 14:15 Norepinephrine Bitartrate 8 mg/ Dextrose 258 ml @ 15.267 mls/ hr CONT PRN IV PER PROTOCOL Last administered on 08/05/19 07:48; Start 08/04/19 at 14:15 Furosemide (Lasix) 20 mg 1X ONCE IVP Last administered on 08/04/19at 16:59; Start 08/04/19 at 17:00; Stop 08/04/19 at 17:01; Status DC Heparin Sodium (Porcine) (Heparin Sodium) 5,000 unit Q8HRS SQ Last administered on 08/08/19at 06:21; Start 08/04/19 at 22:00 Famotidine (Pepcid Vial) 20 mg BID IVP Last administered on 08/08/19 08:52; Start 08/04/19 at 21:00 Meropenem 500 mg/ Sodium Chloride 50 ml @ 100 mls/hr Q6HRS IV Last administered on 08/06/19at 06:23; Start 08/05/19 at 12:00; Stop 08/06/19 at 10:25; Status DC Magnesium Sulfate 50 ml @ 25 mls/hr 1X ONCE IV Last administered on 08/05/19at 08:21; Start 08/05/19 at 08:00; Stop 08/05/19 at 09:59; Status DC Lorazepam (Ativan Inj) 2 mg STK-MED ONCE .ROUTE ; Start 08/05/19 at 19:57; Stop 08/05/19 at 19:57; Status DC Levetiracetam 500 mg/Dextrose 105 ml @ 420 mls/hr Q12HR IV Last administered on 08/08/19at 08:52; Start 08/05/19 at 21:00 Midazolam HCl 50 mg/Sodium Chloride 50 ml @ 1 mls/hr CONT PRN IV SEE I/O RECORD; Start 08/05/19 at 21:00; Status UNV Digoxin (Lanoxin) 250 mcg 1X ONCE IV Last administered on 08/06/19at 00:19; Start 08/06/19 at 00:15; Stop 08/06/19 at 00:16; Status DC Digoxin (Lanoxin) 250 mcg 1X ONCE IV Last administered on 08/06/19at 02:46; Start 08/06/19 at 02:30; Stop 08/06/19 at 02:31; Status DC Digoxin (Lanoxin) 250 mcg 1X ONCE IV Last administered on 08/06/19at 09:21; Start 08/06/19 at 08:30; Stop 08/06/19 at 08:31; Status DC Piperacillin Sod/ Tazobactam Sod 3.375 gm/Sodium Chloride 50 ml @ 100 mls/hr Q6HRS IV Last administered on 08/08/19at 06:16; Start 08/06/19 at 12:00 Aspirin (Ecotrin) 81 mg DAILYWBKFT PO ; Start 08/06/19 at 16:30; Stop 08/06/19 at 17:28; Status DC Metoprolol Tartrate (Lopressor) 25 mg BID PO Last administered on 08/08/19at 08:56; Start 08/06/19 at 21:00 Aspirin (Aspirin Chewable) 81 mg DAILYWBKFT PO Last administered on 08/08/19 08:56; Start 08/07/19 at 08:00 Acetaminophen (Tylenol Supp) 650 mg PRN Q6HRS PRN WI MILD PAIN / TEMP > 100.3'F; Start 08/06/19 at 18:45; Stop 08/06/19 at 18:43; Status DC Acetaminophen (Tylenol) 650 mg PRN Q6HRS PRN PEG MILD PAIN / TEMP > 100.3'F Last administered on 08/07/19at 08:47; Start 08/06/19 at 18:45 Furosemide (Lasix) 20 mg 1X ONCE IVP Last administered on 08/07/19at 09:00; Start 08/07/19 at 08:45; Stop 08/07/19 at 08:48; Status DC Potassium Chloride/Water 100 ml @ 100 mls/hr Q1H IV Last administered on 08/07/19at 11:35; Start 08/07/19 at 09:00; Stop 08/07/19 at 10:59; Status DC Lorazepam (Ativan Inj) 2 mg STK-MED ONCE .ROUTE ; Start 08/05/19 at 20:00; Stop 08/07/19 at 08:55; Status DC Doxycycline Hyclate 100 mg/ Dextrose 100 ml @ 50 mls/hr Q12HR IV Last administered on 08/08/19at 08:55; Start 08/07/19 at 10:15 Vitals/I & O Vital Sign - Last 24 Hours 08/07/19 08/07/19 08/07/19 08/07/19 11:18 12:00 12:00 12:08 Temp 101.2 101.2 Pulse 112 98 Resp 28 29 B/P (MAP) 175/82 (113) 143/64 (90) Pulse Ox 96 97 97 O2 Delivery Ventilator Ventilator Mechanical Ventilator Ventilator 08/07/19 08/07/19 08/07/19 08/07/19 13:19 14:08 15:00 15:18 Pulse 95 97 100 Resp 28 26 28 B/P (MAP) 147/66 (93) 149/72 (97) 133/65 (87) Pulse Ox 96 96 98 92 O2 Delivery Ventilator Ventilator Ventilator Ventilator 08/07/19 08/07/19 08/07/19 08/07/19 16:00 16:00 17:00 17:16 Temp 99.7 99.7 Pulse 100 96 Resp 30 B/P (MAP) 131/69 (89) 126/66 (86) Pulse Ox 100 100 97 O2 Delivery Ventilator Mechanical Ventilator Ventilator Ventilator 08/07/19 08/07/19 08/07/19 08/07/19 18:00 19:00 19:37 20:00 Pulse 102 100 Resp 29 B/P (MAP) 130/58 (82) 140/67 (91) Pulse Ox 99 97 97 O2 Delivery Ventilator Ventilator Ventilator Mechanical Ventilator 08/07/19 08/07/19 08/07/19 08/07/19 20:00 21:00 21:31 22:00 Temp 100.3 100.3 Pulse 94 100 108 100 Resp 27 B/P (MAP) 138/71 (93) 152/73 (99) 140/60 139/61 (87) Pulse Ox 98 95 96 O2 Delivery Ventilator Ventilator Ventilator 08/07/19 08/07/19 08/08/19 08/08/19 23:00 23:57 00:00 00:00 Temp 101.0 101.0 Pulse 98 94 Resp B/P (MAP) 134/60 (84) 129/60 (83) Pulse Ox 96 97 96 O2 Delivery Ventilator Ventilator Ventilator Mechanical Ventilator 08/08/19 08/08/19 08/08/19 08/08/19 01:00 02:00 02:10 03:00 Temp 100.4 100.4 Pulse 98 94 98 Resp 33 B/P (MAP) 134/62 (86) 151/65 (93) 127/55 (79) Pulse Ox 97 93 91 95 O2 Delivery Ventilator Ventilator Ventilator Ventilator 08/08/19 08/08/19 08/08/19 08/08/19 04:00 04:00 04:20 05:00 Temp 99.5 99.5 Pulse 92 98 Resp 25 B/P (MAP) 128/67 (87) 130/70 (90) Pulse Ox 98 97 98 O2 Delivery Mechanical Ventilator Ventilator Ventilator Ventilator 08/08/19 08/08/19 08/08/19 08/08/19 06:00 07:00 08:00 08:00 Temp 101.9 101.9 Pulse 100 102 102 Resp 26 26 26 B/P (MAP) 137/65 (89) 140/65 (90) 134/68 (90) Pulse Ox 98 97 98 O2 Delivery Ventilator Ventilator Ventilator Mechanical Ventilator 08/08/19 08/08/19 08/08/19 08/08/19 08:21 08:56 09:00 10:00 Temp 100.4 100.4 Pulse 97 91 84 Resp 27 24 B/P (MAP) 137/72 129/73 (91) 121/59 (79) Pulse Ox 98 98 98 O2 Delivery Ventilator Ventilator Ventilator Intake and Output 08/07/19 08/07/19 08/08/19 14:59 22:59 06:59 Intake Total 555 ml 1752.25 ml 1082 ml Output Total 2300 ml 1045 ml 865 ml Balance -1745 ml 707.25 ml 217 ml KEITH WILLOUGHBY MD August 08, 2019 11:15
--- NOTE | 2019-08-08 12:33 | NUR ---
Patient was exhibiting posturing for approximately 3-5 min while giving oral care at 1215. Dr Perdomo aware, bolus of versed administered. No further orders at this time
--- NOTE | 2019-08-08 12:44 | PDOC ---
CANDE HERRING [employer]SM[employer] 08/08/19 1244: CARDIO Progress Notes Date and Time Date of Service 08/08/2019 Time of Evaluation 1230 Subjective Subjective: Other (intubated) Vitals Vitals Vital Signs Date Time Temp Pulse Resp B/P (MAP) Pulse Ox O2 Delivery O2 Flow Rate FiO2 08/08/19 12:00 98 Ventilator 08/08/19 11:00 89 26 123/61 (81) 08/08/19 10:00 100.4 100.4 Weight Weight [ ] Input and Output Intake and Output Intake and Output 08/08/19 07:00 Intake Total 3389.25 ml Output Total 4260 ml Balance -870.75 ml IV Total 1010.25 ml Tube Feeding 1966 ml Other 413 ml Output Urine Total 4260 ml Gastric Drainage Total 0 ml # Bowel Movements 2 Laboratory Labs Laboratory Tests Test 08/08/19 01:09 08/08/19 05:15 08/08/19 05:30 08/08/19 08:30 Glucose (Fingerstick) 100 mg/dL (70-99) 79 mg/dL (70-99) White Blood Count 12.9 x10^3/uL (4.0-11.0) Red Blood Count 3.94 x10^6/uL (4.30-5.70) Hemoglobin 11.7 g/dL (13.0-17.5) Hematocrit 35.2 % (39.0-53.0) Mean Corpuscular Volume 89 fL (79-100) Mean Corpuscular Hemoglobin 30 pg (25-35) Mean Corpuscular Hemoglobin Concent 33 g/dL (31-37) Red Cell Distribution Width 13.2 % (11.5-14.5) Platelet Count 174 x10^3/uL (140-400) Neutrophils (%) (Auto) 82 % (31-73) Lymphocytes (%) (Auto) 8 % (24-48) Monocytes (%) (Auto) 9 % (0-9) Eosinophils (%) (Auto) 1 % (0-3) Basophils (%) (Auto) 0 % (0-3) Neutrophils # (Auto) 10.5 x10^3/uL (1.8-7.7) Lymphocytes # (Auto) 1.0 x10^3/uL (1.0-4.8) Monocytes # (Auto) 1.2 x10^3/uL (0.0-1.1) Eosinophils # (Auto) 0.1 x10^3/uL (0.0-0.7) Basophils # (Auto) 0.0 x10^3/uL (0.0-0.2) Sodium Level 140 mmol/L (136-145) Potassium Level 3.6 mmol/L (3.5-5.1) Chloride Level 102 mmol/L (98-107) Carbon Dioxide Level 31 mmol/L (21-32) Anion Gap 7 (6-14) Blood Urea Nitrogen 19 mg/dL (8-26) Creatinine 1.2 mg/dL (0.7-1.3) Estimated GFR (Cockcroft-Gault) 77.2 BUN/Creatinine Ratio 16 (6-20) Glucose Level 92 mg/dL (70-99) Calcium Level 8.4 mg/dL (8.5-10.1) Total Bilirubin 0.8 mg/dL (0.2-1.0) Aspartate Amino Transf (AST/SGOT) 28 U/L (15-37) Alanine Aminotransferase (ALT/SGPT) 26 U/L (16-63) Alkaline Phosphatase 72 U/L (46-116) Total Protein 6.1 g/dL (6.4-8.2) Albumin 2.3 g/dL (3.4-5.0) Albumin/Globulin Ratio 0.6 (1.0-1.7) O2 Saturation 99 % (92-99) Arterial Blood pH 7.46 (7.35-7.45) Arterial Blood pH (Temp corrected) 7.44 Arterial Blood pCO2 at Patient Temp 41 mmHg (35-46) Arterial Blood pCO2 (Temp correct) 44 mmHg Arterial Blood pO2 at Patient Temp 149 mmHg (85-108) Arterial Blood pO2 (Temp corrected) 160 mmHg Arterial Blood HCO3 28 mmol/L (21-28) Arterial Blood Base Excess 4 mmol/L (-3-3) FiO2 60 Microbiology Micro Microbiology 08/05/19 Blood Culture - Preliminary, Resulted NO GROWTH AFTER 3 DAYS Physical Exam HEENT: Neck Supple W Full Motion Chest: Symmetric LUNGS: Other (mechanical vent ) Heart: RRR (SR) Abdomen: Other (soft ) Extremities: No Edema Neurology: other (sedated) Assessment Assessment 1. Acute respiratory failure secondary to likely aspiration with associated illicit drug overdose. intubated/vent. per pulmonary 2. Anoxic/toxic encephalopathy: neurology following. EEG pending 3. PEA arrest; secondary OD 4. NSTEMI; trop 2.485 in the setting acute respiratory failure and prolonged CPR/substance abuse. 4. PAFIB with RVR; multifactorial. None furher since 08/05/2019. EF and WM nml 5. CASH; Cr normalized 6. HTN; controlled 7. Aspiration PNA/fever 8. Seizure: new 9. Substance abuse: with cocaine, marijuana, and Xanax. Recommendations 1. No further rhythm ectopies. Continue metoprolol 2. ASA, replace K 3. Supportive care MALINDA REYES MD 08/08/19 1641: CARDIO Progress Notes Assessment Assessment Patient seen and evaluated. Agree with our nurse practitioners assessment. Acute respiratory failure secondary to likely aspiration with associated drug overdose. intubated/vent. per pulmonary Anoxic/toxic encephalopathy: neurology following. EEG pending PEA arrest; secondary OD NSTEMI; trop 2.485 in the setting acute respiratory failure and prolonged CPR/substance abuse. PAFIB with RVR; multifactorial. None furher since 08/05/2019. EF and WM nml HTN; controlled Aspiration PNA/fever CANDE HERRING APRN August 08, 2019 12:44 MALINDA REYES MD August 08, 2019 16:41
--- NOTE | 2019-08-08 13:43 | NUR ---
SS following up with discharge planning. SS reviewed pt chart and discussed with pt RN. Pt remains on the vent at this time. Per pt's RN, lungs have cleared but pt is starting to posture. Pt not stable at this time. SS will continue to follow for discharge planning.
[2019-08-08] MEDS: MIDAZOLAM 100mg/100ml NS BAG 100 ML IV PRN ×2 (14:48→21:27)
--- NOTE | 2019-08-08 14:59 | PDOC ---
PULMONARY PROGRESS NOTES Subjective Maintenance assist control ventilation, patient today has a strong gag and cough reflex Vitals Vital Signs Date Time Temp Pulse Resp B/P (MAP) Pulse Ox O2 Delivery O2 Flow Rate FiO2 08/08/19 14:00 96 28 137/70 (92) 94 Ventilator 08/08/19 12:00 100.1 100.1 Lungs: Clear Cardiovascular: S1 Abdomen: Soft Extremities: No Edema Skin: Warm Labs Laboratory Tests Test 08/07/19 00:34 08/07/19 05:00 08/07/19 08:00 08/08/19 01:09 Glucose (Fingerstick) 82 mg/dL (70-99) 100 mg/dL (70-99) White Blood Count 14.9 x10^3/uL (4.0-11.0) Red Blood Count 4.15 x10^6/uL (4.30-5.70) Hemoglobin 12.4 g/dL (13.0-17.5) Hematocrit 36.8 % (39.0-53.0) Mean Corpuscular Volume 89 fL (79-100) Mean Corpuscular Hemoglobin 30 pg (25-35) Mean Corpuscular Hemoglobin Concent 34 g/dL (31-37) Red Cell Distribution Width 13.4 % (11.5-14.5) Platelet Count 149 x10^3/uL (140-400) Neutrophils (%) (Auto) 91 % (31-73) Lymphocytes (%) (Auto) 5 % (24-48) Monocytes (%) (Auto) 5 % (0-9) Eosinophils (%) (Auto) 0 % (0-3) Basophils (%) (Auto) 0 % (0-3) Neutrophils # (Auto) 13.5 x10^3/uL (1.8-7.7) Lymphocytes # (Auto) 0.7 x10^3/uL (1.0-4.8) Monocytes # (Auto) 0.7 x10^3/uL (0.0-1.1) Eosinophils # (Auto) 0.0 x10^3/uL (0.0-0.7) Basophils # (Auto) 0.0 x10^3/uL (0.0-0.2) Sodium Level 137 mmol/L (136-145) Potassium Level 3.4 mmol/L (3.5-5.1) Chloride Level 100 mmol/L (98-107) Carbon Dioxide Level 29 mmol/L (21-32) Anion Gap 8 (6-14) Blood Urea Nitrogen 16 mg/dL (8-26) Creatinine 1.3 mg/dL (0.7-1.3) Estimated GFR (Cockcroft-Gault) 70.4 BUN/Creatinine Ratio 12 (6-20) Glucose Level 86 mg/dL (70-99) Calcium Level 8.3 mg/dL (8.5-10.1) Total Bilirubin 0.7 mg/dL (0.2-1.0) Aspartate Amino Transf (AST/SGOT) 27 U/L (15-37) Alanine Aminotransferase (ALT/SGPT) 27 U/L (16-63) Alkaline Phosphatase 63 U/L (46-116) Total Protein 5.6 g/dL (6.4-8.2) Albumin 2.4 g/dL (3.4-5.0) Albumin/Globulin Ratio 0.8 (1.0-1.7) O2 Saturation 96 % (92-99) Arterial Blood pH 7.47 (7.35-7.45) Arterial Blood pCO2 at Patient Temp 39 mmHg (35-46) Arterial Blood pO2 at Patient Temp 80 mmHg (85-108) Arterial Blood HCO3 28 mmol/L (21-28) Arterial Blood Base Excess 4 mmol/L (-3-3) FiO2 60%+10 Test 08/08/19 05:15 08/08/19 05:30 08/08/19 08:30 White Blood Count 12.9 x10^3/uL (4.0-11.0) Red Blood Count 3.94 x10^6/uL (4.30-5.70) Hemoglobin 11.7 g/dL (13.0-17.5) Hematocrit 35.2 % (39.0-53.0) Mean Corpuscular Volume 89 fL (79-100) Mean Corpuscular Hemoglobin 30 pg (25-35) Mean Corpuscular Hemoglobin Concent 33 g/dL (31-37) Red Cell Distribution Width 13.2 % (11.5-14.5) Platelet Count 174 x10^3/uL (140-400) Neutrophils (%) (Auto) 82 % (31-73) Lymphocytes (%) (Auto) 8 % (24-48) Monocytes (%) (Auto) 9 % (0-9) Eosinophils (%) (Auto) 1 % (0-3) Basophils (%) (Auto) 0 % (0-3) Neutrophils # (Auto) 10.5 x10^3/uL (1.8-7.7) Lymphocytes # (Auto) 1.0 x10^3/uL (1.0-4.8) Monocytes # (Auto) 1.2 x10^3/uL (0.0-1.1) Eosinophils # (Auto) 0.1 x10^3/uL (0.0-0.7) Basophils # (Auto) 0.0 x10^3/uL (0.0-0.2) Sodium Level 140 mmol/L (136-145) Potassium Level 3.6 mmol/L (3.5-5.1) Chloride Level 102 mmol/L (98-107) Carbon Dioxide Level 31 mmol/L (21-32) Anion Gap 7 (6-14) Blood Urea Nitrogen 19 mg/dL (8-26) Creatinine 1.2 mg/dL (0.7-1.3) Estimated GFR (Cockcroft-Gault) 77.2 BUN/Creatinine Ratio 16 (6-20) Glucose Level 92 mg/dL (70-99) Calcium Level 8.4 mg/dL (8.5-10.1) Total Bilirubin 0.8 mg/dL (0.2-1.0) Aspartate Amino Transf (AST/SGOT) 28 U/L (15-37) Alanine Aminotransferase (ALT/SGPT) 26 U/L (16-63) Alkaline Phosphatase 72 U/L (46-116) Total Protein 6.1 g/dL (6.4-8.2) Albumin 2.3 g/dL (3.4-5.0) Albumin/Globulin Ratio 0.6 (1.0-1.7) Glucose (Fingerstick) 79 mg/dL (70-99) O2 Saturation 99 % (92-99) Arterial Blood pH 7.46 (7.35-7.45) Arterial Blood pH (Temp corrected) 7.44 Arterial Blood pCO2 at Patient Temp 41 mmHg (35-46) Arterial Blood pCO2 (Temp correct) 44 mmHg Arterial Blood pO2 at Patient Temp 149 mmHg (85-108) Arterial Blood pO2 (Temp corrected) 160 mmHg Arterial Blood HCO3 28 mmol/L (21-28) Arterial Blood Base Excess 4 mmol/L (-3-3) FiO2 60 Laboratory Tests Test 08/08/19 01:09 08/08/19 05:15 08/08/19 05:30 08/08/19 08:30 Glucose (Fingerstick) 100 mg/dL (70-99) 79 mg/dL (70-99) White Blood Count 12.9 x10^3/uL (4.0-11.0) Red Blood Count 3.94 x10^6/uL (4.30-5.70) Hemoglobin 11.7 g/dL (13.0-17.5) Hematocrit 35.2 % (39.0-53.0) Mean Corpuscular Volume 89 fL (79-100) Mean Corpuscular Hemoglobin 30 pg (25-35) Mean Corpuscular Hemoglobin Concent 33 g/dL (31-37) Red Cell Distribution Width 13.2 % (11.5-14.5) Platelet Count 174 x10^3/uL (140-400) Neutrophils (%) (Auto) 82 % (31-73) Lymphocytes (%) (Auto) 8 % (24-48) Monocytes (%) (Auto) 9 % (0-9) Eosinophils (%) (Auto) 1 % (0-3) Basophils (%) (Auto) 0 % (0-3) Neutrophils # (Auto) 10.5 x10^3/uL (1.8-7.7) Lymphocytes # (Auto) 1.0 x10^3/uL (1.0-4.8) Monocytes # (Auto) 1.2 x10^3/uL (0.0-1.1) Eosinophils # (Auto) 0.1 x10^3/uL (0.0-0.7) Basophils # (Auto) 0.0 x10^3/uL (0.0-0.2) Sodium Level 140 mmol/L (136-145) Potassium Level 3.6 mmol/L (3.5-5.1) Chloride Level 102 mmol/L (98-107) Carbon Dioxide Level 31 mmol/L (21-32) Anion Gap 7 (6-14) Blood Urea Nitrogen 19 mg/dL (8-26) Creatinine 1.2 mg/dL (0.7-1.3) Estimated GFR (Cockcroft-Gault) 77.2 BUN/Creatinine Ratio 16 (6-20) Glucose Level 92 mg/dL (70-99) Calcium Level 8.4 mg/dL (8.5-10.1) Total Bilirubin 0.8 mg/dL (0.2-1.0) Aspartate Amino Transf (AST/SGOT) 28 U/L (15-37) Alanine Aminotransferase (ALT/SGPT) 26 U/L (16-63) Alkaline Phosphatase 72 U/L (46-116) Total Protein 6.1 g/dL (6.4-8.2) Albumin 2.3 g/dL (3.4-5.0) Albumin/Globulin Ratio 0.6 (1.0-1.7) O2 Saturation 99 % (92-99) Arterial Blood pH 7.46 (7.35-7.45) Arterial Blood pH (Temp corrected) 7.44 Arterial Blood pCO2 at Patient Temp 41 mmHg (35-46) Arterial Blood pCO2 (Temp correct) 44 mmHg Arterial Blood pO2 at Patient Temp 149 mmHg (85-108) Arterial Blood pO2 (Temp corrected) 160 mmHg Arterial Blood HCO3 28 mmol/L (21-28) Arterial Blood Base Excess 4 mmol/L (-3-3) FiO2 [address] head - 08/04/2019 IMPRESSION: 1. No acute intracranial abnormality. 2. Paranasal sinus disease. Left maxillary sinus air-fluid level suggests acute sinusitis. CXR-- 08/05/2019 IMPRESSION: 1. Bilateral airspace opacities with satisfactory endotracheal intubation, ET tube terminating 4.8 cm above the mike. Enteric tube also appears in good position in the gastric fundus. Impression . IMPRESSION: 1. Acute hypoxic respiratory failure secondary to respiratory arrest from drug overdose and highly suspected aspiration pneumonia/ ALI/ARDS with severe hy poxia. 2. Drug overdose including cocaine, marijuana and Xanax. 3. Anoxic toxic encephalopathy 4. Possible aspiration pneumonia 5. Decreased urine output and acute kidney injury--improving 6. Shock. Status post fluid resuscitation. 7. ct head with no major events Plan . Discussed with mother at bedside, will continue current support. If family wishes to proceed with aggressive care he will require trach and PEG Follow neurology input Cardiac antibiotics Continue assist control ventilation EEG report noted Prognosis is poor Discussed with Total cumulative critical care time of 35 minutes, reviewing data, chest x- ray, labs. Formulating a plan KASHIF DEXTER MD August 08, 2019 14:59
--- NOTE | 2019-08-08 20:40 | NUR ---
PT TRANSFERRED TO ICU, WHILE BAGGED BY RN. PLACED BACK ON VENT UPON ARRIVAL TO ICU, SUCTIONED AND HME AND FILTER CHANGED. SPO2 IS 96%
--- NOTE | 2019-08-08 22:21 | PN ---
DATE: 08/08/2019 SUBJECTIVE: The patient is continued to be intubated, mechanically ventilated. He continued to be encephalopathic, both toxic and anoxic. He has had seizures for which he is now on Keppra, has had an EEG done yesterday, which showed that he has alpha coma and responsive and somewhat hopeful finding. PHYSICAL EXAMINATION: GENERAL: When I examined him, he looked well and was clearly in no apparent respiratory distress. No pallor, jaundice, cyanosis or thyromegaly. No jugular venous distention. No limb edema. VITAL SIGNS: His heart rate was 84, blood pressure was 121/59, temperature was 100.4, respiratory rate was 24, and oxygen saturation was 98%. HEAD, EYES, EARS, NOSE AND THROAT: Showed normocephalic, atraumatic. He has orotracheal and orogastric tube in place, has a central line in the right internal jugular vein. NECK: Supple. HEART: Showed normal first and second heart sounds with no gallop, rub or murmur. CHEST: Shows central trachea, equal bilateral expansion, air entry, vesicular sounds. No crepitation or rhonchi. ABDOMEN: Distended, soft, nontender. NEUROLOGIC: He is encephalopathic, does not open his eyes, nor does he respond to verbal or painful stimuli. His intake was 2888, output was 5520. LABORATORY DATA: His white cell count was 12,900, hemoglobin 11.7, hematocrit 35, MCV 89 and platelet count of 174,000. Serum sodium was 140, potassium 3.6, chloride 102, bicarbonate 31, anion gap of 7, BUN 19, creatinine 1.2, estimated GFR was 77 mL per minute. His glucose was 92, calcium was 8.4. Total bilirubin, AST, ALT, alkaline phosphatase were normal. Total protein was 6.1, albumin was 2.3. His blood cultures continued to show no growth after 3 days. ASSESSMENT: 1. Acute hypoxic respiratory failure secondary to respiratory arrest from drug overdose and highly suspected aspiration pneumonia/acute respiratory distress syndrome. 2. Drug overdose including cocaine, marijuana, and Xanax. 3. Highly suspected anoxic encephalopathy on top of obviously toxic encephalopathy. 4. Acute kidney injury that has resolved. His creatinine has improved from 2 to 1.2. 5. Hypernatremia also has resolved. The serum sodium came down from 154-140. 6. Hypokalemia, resolved, also her potassium is up to 3.6. PLAN: To continue with IV antibiotic in the form of doxycycline as well as piperacillin and tazobactam. Continue with Keppra for seizure disorder. Continue with DVT prophylaxis. Continue obviously with mechanical ventilation. Continue GI prophylaxis. RACHEL PAYNE MD DR: EDITH/chauncey JOB#: [id number] / [id number]
[2019-08-09] VITALS (25 sets, daily range): BP systolic 126–156; BP diastolic 58–79
[2019-08-09] MEDS: PIPERACILLIN/TAZOBACTAM 3.375 GM in IV NORMAL SALINE 50ML 50 ML IV SCH ×4 (01:02→18:31)
[2019-08-09] MEDS: HEPARIN for SUB-Q USE 5,000 UNIT/ML VIAL. SQ SCH ×3 (05:47→23:06)
[2019-08-09 06:15] LABS: BASO % 0 % (0-3); EOS # 0.2 x10^3/uL (0.0-0.7); EOS % 3 % (0-3); HEMATOCRIT 34.9 % (39.0-53.0); HEMOGLOBIN 11.7 g/dL (13.0-17.5); LYMPH # 1.3 x10^3/uL (1.0-4.8); LYMPH % 15 % (24-48); MEAN CORPUSCULAR HEMOGLOBIN 30 pg (25-35); MEAN CORPUSCULAR HGB CONC 33 g/dL (31-37); MEAN CORPUSCULAR VOLUME 89 fL (79-100); MONO # 1.7 x10^3/uL (0.0-1.1); MONO % 20 % (0-9); NEUT # 5.2 x10^3/uL (1.8-7.7); NEUT % 62 % (31-73); PLATELET COUNT 199 x10^3/uL (140-400); RED BLOOD COUNT 3.91 x10^6/uL (4.30-5.70); WHITE BLOOD COUNT 8.4 x10^3/uL (4.0-11.0)
[2019-08-09 06:37] LABS: ALBUMIN 2.3 g/dL (3.4-5.0); ALBUMIN/GLOBULIN RATIO 0.6 (1.0-1.7); CALCIUM 8.5 mg/dL (8.5-10.1); CREATININE 1.1 mg/dL (0.7-1.3); GFR 85.3; POTASSIUM 3.5 mmol/L (3.5-5.1); TOTAL BILIRUBIN 0.7 mg/dL (0.2-1.0); TOTAL PROTEIN 6.1 g/dL (6.4-8.2)
--- NOTE | 2019-08-09 07:13 | PDOC ---
Infectious Disease Note Subjective Subjective intubated/sedated ROS ROS unable to obtain Vital Sign Vital Signs Vital Signs Date Time Temp Pulse Resp B/P (MAP) Pulse Ox O2 Delivery O2 Flow Rate FiO2 08/09/19 04:39 92 Ventilator 08/09/19 04:00 97.3 82 24 149/71 (97) 97.3 Physical Exam PHYSICAL EXAM GENERAL: Intubated,looks more comofortable HEENT: Anicteric/ PERRL- small. Tongue with lesion ? mild edema. ETT enteric tube. NECK: Supple. No JVD LUNGS: Decreased breath sound at the bases. HEART: S1, S2 regular. ABDOMEN: Soft, nontender, nondistended. Decreased Bowel sounds present. EXTREMITIES: No edema. No cyanosis. DERMATOLOGIC: Warm, dry. No generalized rash. Multiple tattoos. GENITOURINARY: Gonzalez in place. HOSPICE PHYSICIAN: Unable to assess, intubated. PSYCHIATRIC: Unable to assess, intubated. IV: RIJ 08/05 Labs Lab Laboratory Tests Test 08/08/19 08:30 08/09/19 05:58 08/09/19 06:00 O2 Saturation 99 % (92-99) Arterial Blood pH 7.46 (7.35-7.45) Arterial Blood pH (Temp corrected) 7.44 Arterial Blood pCO2 at Patient Temp 41 mmHg (35-46) Arterial Blood pCO2 (Temp correct) 44 mmHg Arterial Blood pO2 at Patient Temp 149 mmHg (85-108) Arterial Blood pO2 (Temp corrected) 160 mmHg Arterial Blood HCO3 28 mmol/L (21-28) Arterial Blood Base Excess 4 mmol/L (-3-3) FiO2 60 Glucose (Fingerstick) 97 mg/dL (70-99) White Blood Count 8.4 x10^3/uL (4.0-11.0) Red Blood Count 3.91 x10^6/uL (4.30-5.70) Hemoglobin 11.7 g/dL (13.0-17.5) Hematocrit 34.9 % (39.0-53.0) Mean Corpuscular Volume 89 fL (79-100) Mean Corpuscular Hemoglobin 30 pg (25-35) Mean Corpuscular Hemoglobin Concent 33 g/dL (31-37) Red Cell Distribution Width 13.0 % (11.5-14.5) Platelet Count 199 x10^3/uL (140-400) Neutrophils (%) (Auto) 62 % (31-73) Lymphocytes (%) (Auto) 15 % (24-48) Monocytes (%) (Auto) 20 % (0-9) Eosinophils (%) (Auto) 3 % (0-3) Basophils (%) (Auto) 0 % (0-3) Neutrophils # (Auto) 5.2 x10^3/uL (1.8-7.7) Lymphocytes # (Auto) 1.3 x10^3/uL (1.0-4.8) Monocytes # (Auto) 1.7 x10^3/uL (0.0-1.1) Eosinophils # (Auto) 0.2 x10^3/uL (0.0-0.7) Basophils # (Auto) 0.0 x10^3/uL (0.0-0.2) Sodium Level 140 mmol/L (136-145) Potassium Level 3.5 mmol/L (3.5-5.1) Chloride Level 104 mmol/L (98-107) Carbon Dioxide Level 28 mmol/L (21-32) Anion Gap 8 (6-14) Blood Urea Nitrogen 21 mg/dL (8-26) Creatinine 1.1 mg/dL (0.7-1.3) Estimated GFR (Cockcroft-Gault) 85.3 BUN/Creatinine Ratio 19 (6-20) Glucose Level 98 mg/dL (70-99) Calcium Level 8.5 mg/dL (8.5-10.1) Total Bilirubin 0.7 mg/dL (0.2-1.0) Aspartate Amino Transf (AST/SGOT) 49 U/L (15-37) Alanine Aminotransferase (ALT/SGPT) 55 U/L (16-63) Alkaline Phosphatase 75 U/L (46-116) Total Protein 6.1 g/dL (6.4-8.2) Albumin 2.3 g/dL (3.4-5.0) Albumin/Globulin Ratio 0.6 (1.0-1.7) Micro Microbiology 08/05/19 Blood Culture - Preliminary, Resulted NO GROWTH AFTER 1 DAY Objective Assessment Fever - better today - ? seizure - reactive/ ? withdrawal 1. Acute hypoxic respiratory failure from drug overdose. some better down to 50 Fi02 and 8 PEEP 2. Status post cardiac arrest at outside hospital, [facility]. elevated Troponin - NSTEMI 3. Bilateral pulmonary infiltrates, highly suspected aspiration pneumonia. 4. Leukocytosis - better. 5. Polysubstance abuse with marijuana and cocaine. 6. Drug overdose with Xanax. 7. Encephalopathy, could have component of anoxic brain injury."EEG shows rather fast acitivity, possible alpha coma" 8. Hypoglycemia - corrected. 9. Acute kidney injury - better. 10. Abnormal liver function tests - better 11. Brief Seizure night 08/04 ? 08/06 per nursing 12. Sinusitis 13. ? biting of tongue with seizure Plan Plan of Care Check COVID with ongoing fever 1. Discontinue Zyvox 5/ given fever and Xray infiltrates but seems some i mprovement yet - Avoiding Vanc with CASH improving. Dose Doxy 08/06 2. D/c Meropenem 08/04 with ? seizure and dose Zosyn 08/05 3. Follow up labs in am and cultures at [place]. 4. Neurology following 5. Pulmonary team following. 6. Condition critical. 7. Monitor tongue ? trauma from seizure Discussed with SAYDA SCOTT MD August 09, 2019 07:13
--- NOTE | 2019-08-09 07:43 | NUR ---
IP: Pt is COVID negative.
[2019-08-09 07:53] LABS: BASE EXCESS ABG 2 mmol/L (-3-3); HCO3 ABG 26 mmol/L (21-28); PCO2 ABG 40 mmHg (35-46); PO2 ABG 143 mmHg (85-108); SAT O2 ABG 99 % (92-99)
--- NOTE | 2019-08-09 08:20 | PDOC ---
PULMONARY PROGRESS NOTES Subjective Patient remains intubated, he has some posturing yesterday Vitals Vital Signs Date Time Temp Pulse Resp B/P (MAP) Pulse Ox O2 Delivery O2 Flow Rate FiO2 08/09/19 06:00 84 26 129/60 (83) 97 Ventilator 08/09/19 04:00 97.3 97.3 Lungs: Clear Cardiovascular: S1 Abdomen: Soft Extremities: No Edema Skin: Warm Labs Laboratory Tests Test 08/08/19 01:09 08/08/19 05:15 08/08/19 05:30 08/08/19 08:30 Glucose (Fingerstick) 100 mg/dL (70-99) 79 mg/dL (70-99) White Blood Count 12.9 x10^3/uL (4.0-11.0) Red Blood Count 3.94 x10^6/uL (4.30-5.70) Hemoglobin 11.7 g/dL (13.0-17.5) Hematocrit 35.2 % (39.0-53.0) Mean Corpuscular Volume 89 fL (79-100) Mean Corpuscular Hemoglobin 30 pg (25-35) Mean Corpuscular Hemoglobin Concent 33 g/dL (31-37) Red Cell Distribution Width 13.2 % (11.5-14.5) Platelet Count 174 x10^3/uL (140-400) Neutrophils (%) (Auto) 82 % (31-73) Lymphocytes (%) (Auto) 8 % (24-48) Monocytes (%) (Auto) 9 % (0-9) Eosinophils (%) (Auto) 1 % (0-3) Basophils (%) (Auto) 0 % (0-3) Neutrophils # (Auto) 10.5 x10^3/uL (1.8-7.7) Lymphocytes # (Auto) 1.0 x10^3/uL (1.0-4.8) Monocytes # (Auto) 1.2 x10^3/uL (0.0-1.1) Eosinophils # (Auto) 0.1 x10^3/uL (0.0-0.7) Basophils # (Auto) 0.0 x10^3/uL (0.0-0.2) Sodium Level 140 mmol/L (136-145) Potassium Level 3.6 mmol/L (3.5-5.1) Chloride Level 102 mmol/L (98-107) Carbon Dioxide Level 31 mmol/L (21-32) Anion Gap 7 (6-14) Blood Urea Nitrogen 19 mg/dL (8-26) Creatinine 1.2 mg/dL (0.7-1.3) Estimated GFR (Cockcroft-Gault) 77.2 BUN/Creatinine Ratio 16 (6-20) Glucose Level 92 mg/dL (70-99) Calcium Level 8.4 mg/dL (8.5-10.1) Total Bilirubin 0.8 mg/dL (0.2-1.0) Aspartate Amino Transf (AST/SGOT) 28 U/L (15-37) Alanine Aminotransferase (ALT/SGPT) 26 U/L (16-63) Alkaline Phosphatase 72 U/L (46-116) Total Protein 6.1 g/dL (6.4-8.2) Albumin 2.3 g/dL (3.4-5.0) Albumin/Globulin Ratio 0.6 (1.0-1.7) O2 Saturation 99 % (92-99) Arterial Blood pH 7.46 (7.35-7.45) Arterial Blood pH (Temp corrected) 7.44 Arterial Blood pCO2 at Patient Temp 41 mmHg (35-46) Arterial Blood pCO2 (Temp correct) 44 mmHg Arterial Blood pO2 at Patient Temp 149 mmHg (85-108) Arterial Blood pO2 (Temp corrected) 160 mmHg Arterial Blood HCO3 28 mmol/L (21-28) Arterial Blood Base Excess 4 mmol/L (-3-3) FiO2 60 Test 08/09/19 05:58 08/09/19 06:00 Glucose (Fingerstick) 97 mg/dL (70-99) White Blood Count 8.4 x10^3/uL (4.0-11.0) Red Blood Count 3.91 x10^6/uL (4.30-5.70) Hemoglobin 11.7 g/dL (13.0-17.5) Hematocrit 34.9 % (39.0-53.0) Mean Corpuscular Volume 89 fL (79-100) Mean Corpuscular Hemoglobin 30 pg (25-35) Mean Corpuscular Hemoglobin Concent 33 g/dL (31-37) Red Cell Distribution Width 13.0 % (11.5-14.5) Platelet Count 199 x10^3/uL (140-400) Neutrophils (%) (Auto) 62 % (31-73) Lymphocytes (%) (Auto) 15 % (24-48) Monocytes (%) (Auto) 20 % (0-9) Eosinophils (%) (Auto) 3 % (0-3) Basophils (%) (Auto) 0 % (0-3) Neutrophils # (Auto) 5.2 x10^3/uL (1.8-7.7) Lymphocytes # (Auto) 1.3 x10^3/uL (1.0-4.8) Monocytes # (Auto) 1.7 x10^3/uL (0.0-1.1) Eosinophils # (Auto) 0.2 x10^3/uL (0.0-0.7) Basophils # (Auto) 0.0 x10^3/uL (0.0-0.2) Sodium Level 140 mmol/L (136-145) Potassium Level 3.5 mmol/L (3.5-5.1) Chloride Level 104 mmol/L (98-107) Carbon Dioxide Level 28 mmol/L (21-32) Anion Gap 8 (6-14) Blood Urea Nitrogen 21 mg/dL (8-26) Creatinine 1.1 mg/dL (0.7-1.3) Estimated GFR (Cockcroft-Gault) 85.3 BUN/Creatinine Ratio 19 (6-20) Glucose Level 98 mg/dL (70-99) Calcium Level 8.5 mg/dL (8.5-10.1) Total Bilirubin 0.7 mg/dL (0.2-1.0) Aspartate Amino Transf (AST/SGOT) 49 U/L (15-37) Alanine Aminotransferase (ALT/SGPT) 55 U/L (16-63) Alkaline Phosphatase 75 U/L (46-116) Total Protein 6.1 g/dL (6.4-8.2) Albumin 2.3 g/dL (3.4-5.0) Albumin/Globulin Ratio 0.6 (1.0-1.7) Laboratory Tests Test 08/08/19 08:30 08/09/19 05:58 08/09/19 06:00 O2 Saturation 99 % (92-99) Arterial Blood pH 7.46 (7.35-7.45) Arterial Blood pH (Temp corrected) 7.44 Arterial Blood pCO2 at Patient Temp 41 mmHg (35-46) Arterial Blood pCO2 (Temp correct) 44 mmHg Arterial Blood pO2 at Patient Temp 149 mmHg (85-108) Arterial Blood pO2 (Temp corrected) 160 mmHg Arterial Blood HCO3 28 mmol/L (21-28) Arterial Blood Base Excess 4 mmol/L (-3-3) FiO2 60 Glucose (Fingerstick) 97 mg/dL (70-99) White Blood Count 8.4 x10^3/uL (4.0-11.0) Red Blood Count 3.91 x10^6/uL (4.30-5.70) Hemoglobin 11.7 g/dL (13.0-17.5) Hematocrit 34.9 % (39.0-53.0) Mean Corpuscular Volume 89 fL (79-100) Mean Corpuscular Hemoglobin 30 pg (25-35) Mean Corpuscular Hemoglobin Concent 33 g/dL (31-37) Red Cell Distribution Width 13.0 % (11.5-14.5) Platelet Count 199 x10^3/uL (140-400) Neutrophils (%) (Auto) 62 % (31-73) Lymphocytes (%) (Auto) 15 % (24-48) Monocytes (%) (Auto) 20 % (0-9) Eosinophils (%) (Auto) 3 % (0-3) Basophils (%) (Auto) 0 % (0-3) Neutrophils # (Auto) 5.2 x10^3/uL (1.8-7.7) Lymphocytes # (Auto) 1.3 x10^3/uL (1.0-4.8) Monocytes # (Auto) 1.7 x10^3/uL (0.0-1.1) Eosinophils # (Auto) 0.2 x10^3/uL (0.0-0.7) Basophils # (Auto) 0.0 x10^3/uL (0.0-0.2) Sodium Level 140 mmol/L (136-145) Potassium Level 3.5 mmol/L (3.5-5.1) Chloride Level 104 mmol/L (98-107) Carbon Dioxide Level 28 mmol/L (21-32) Anion Gap 8 (6-14) Blood Urea Nitrogen 21 mg/dL (8-26) Creatinine 1.1 mg/dL (0.7-1.3) Estimated GFR (Cockcroft-Gault) 85.3 BUN/Creatinine Ratio 19 (6-20) Glucose Level 98 mg/dL (70-99) Calcium Level 8.5 mg/dL (8.5-10.1) Total Bilirubin 0.7 mg/dL (0.2-1.0) Aspartate Amino Transf (AST/SGOT) 49 U/L (15-37) Alanine Aminotransferase (ALT/SGPT) 55 U/L (16-63) Alkaline Phosphatase 75 U/L (46-116) Total Protein 6.1 g/dL (6.4-8.2) Albumin 2.3 g/dL (3.4-5.0) Albumin/Globulin Ratio 0.6 (1.0-1.7) Comments CT head - 08/04/2019 IMPRESSION: 1. No acute intracranial abnormality. 2. Paranasal sinus disease. Left maxillary sinus air-fluid level suggests acute sinusitis. CXR-- 08/05/2019 IMPRESSION: 1. Bilateral airspace opacities with satisfactory endotracheal intubation, ET tube terminating 4.8 cm above the mike. Enteric tube also appears in good position in the gastric fundus. Impression . IMPRESSION: 1. Acute hypoxic respiratory failure secondary to respiratory arrest from drug overdose and highly suspected aspiration pneumonia/ ALI/ARDS with severe hypoxia. 2. Drug overdose including cocaine, marijuana and Xanax. 3. Anoxic toxic encephalopathy 4. Possible aspiration pneumonia 5. Decreased urine output and acute kidney injury--improving 6. Shock. Status post fluid resuscitation. 7. ct head with no major events Plan . Case discussed with Dr. Miller, I appreciate his input We will continue current support Empiric antibiotics Ultimately will require a PEG and trach Total cumulative critical care time of 35 minutes, reviewing data, labs, chest x-ray, and formulating a plan KASHIF DEXTER MD August 09, 2019 08:20
[2019-08-09 08:34] LABS: FIO2 ABG 50 VENT
[2019-08-09] MEDS: ASPIRIN CHEWABLE 81 MG TABLET. PO SCH (08:53)
[2019-08-09] MEDS: DOXYCYCLINE HYCLATE 100 MG in IV DEXTROSE 5% 100ML 100 ML IV SCH ×2 (08:54→23:00)
[2019-08-09] MEDS: METOPROLOL TART IMMED RELEASE 25 MG TABLET. PO SCH ×2 (08:54→22:59)
[2019-08-09] MEDS: levETIRAcetam 500 MG in IV DEXTROSE 5% 100ML 100 ML IV SCH ×2 (08:55→23:02)
[2019-08-09] MEDS: FAMOTIDINE 20 MG/2 ML VIAL IVP SCH ×2 (09:35→22:58)
--- NOTE | 2019-08-09 10:46 | PDOC ---
MARLENE ABREU PAYROLL PROFESSIONAL 08/09/19 1046: CARDIO Progress Notes Date and Time Date of Service 08/09/19 Time of Evaluation 1030 Subjective Subjective: Other (intubated) Vitals Vitals Vital Signs Date Time Temp Pulse Resp B/P (MAP) Pulse Ox O2 Delivery O2 Flow Rate FiO2 08/09/19 10:00 82 138/62 (87) Ventilator 08/09/19 08:00 98.0 98.0 08/09/19 06:00 26 97 Weight Weight [ ] Input and Output Intake and Output Intake and Output 08/09/19 07:00 Intake Total 4149.63 ml Output Total 1365 ml Balance 2784.63 ml IV Total 786.63 ml Tube Feeding 2363 ml Blood Product IV Normal Saline Flush 1000 ml Output Urine Total 1365 ml Gastric Drainage Total 0 ml Laboratory Labs Laboratory Tests Test 08/09/19 05:58 08/09/19 06:00 08/09/19 07:30 Glucose (Fingerstick) 97 mg/dL (70-99) White Blood Count 8.4 x10^3/uL (4.0-11.0) Red Blood Count 3.91 x10^6/uL (4.30-5.70) Hemoglobin 11.7 g/dL (13.0-17.5) Hematocrit 34.9 % (39.0-53.0) Mean Corpuscular Volume 89 fL (79-100) Mean Corpuscular Hemoglobin 30 pg (25-35) Mean Corpuscular Hemoglobin Concent 33 g/dL (31-37) Red Cell Distribution Width 13.0 % (11.5-14.5) Platelet Count 199 x10^3/uL (140-400) Neutrophils (%) (Auto) 62 % (31-73) Lymphocytes (%) (Auto) 15 % (24-48) Monocytes (%) (Auto) 20 % (0-9) Eosinophils (%) (Auto) 3 % (0-3) Basophils (%) (Auto) 0 % (0-3) Neutrophils # (Auto) 5.2 x10^3/uL (1.8-7.7) Lymphocytes # (Auto) 1.3 x10^3/uL (1.0-4.8) Monocytes # (Auto) 1.7 x10^3/uL (0.0-1.1) Eosinophils # (Auto) 0.2 x10^3/uL (0.0-0.7) Basophils # (Auto) 0.0 x10^3/uL (0.0-0.2) Sodium Level 140 mmol/L (136-145) Potassium Level 3.5 mmol/L (3.5-5.1) Chloride Level 104 mmol/L (98-107) Carbon Dioxide Level 28 mmol/L (21-32) Anion Gap 8 (6-14) Blood Urea Nitrogen 21 mg/dL (8-26) Creatinine 1.1 mg/dL (0.7-1.3) Estimated GFR (Cockcroft-Gault) 85.3 BUN/Creatinine Ratio 19 (6-20) Glucose Level 98 mg/dL (70-99) Calcium Level 8.5 mg/dL (8.5-10.1) Total Bilirubin 0.7 mg/dL (0.2-1.0) Aspartate Amino Transf (AST/SGOT) 49 U/L (15-37) Alanine Aminotransferase (ALT/SGPT) 55 U/L (16-63) Alkaline Phosphatase 75 U/L (46-116) Total Protein 6.1 g/dL (6.4-8.2) Albumin 2.3 g/dL (3.4-5.0) Albumin/Globulin Ratio 0.6 (1.0-1.7) O2 Saturation 99 % (92-99) Arterial Blood pH 7.43 (7.35-7.45) Arterial Blood pCO2 at Patient Temp 40 mmHg (35-46) Arterial Blood pO2 at Patient Temp 143 mmHg (85-108) Arterial Blood HCO3 26 mmol/L (21-28) Arterial Blood Base Excess 2 mmol/L (-3-3) FiO2 50 vent Microbiology Micro Microbiology 08/05/19 Blood Culture - Preliminary, Resulted NO GROWTH AFTER 4 DAYS Physical Exam HEENT: Neck Supple W Full Motion Chest: Symmetric LUNGS: Other (mechanical vent ) Heart: RRR (SR) Abdomen: Other (soft ) Extremities: No Edema Neurology: other (sedated, opens eyes, doesnt track) Assessment Assessment 1. Acute respiratory failure secondary to likely aspiration with associated illicit drug overdose. intubated/vent. per pulmonary. COVID negative 2. Anoxic/toxic encephalopathy: neurology following. EEG pending 3. PEA arrest; secondary OD 4. NSTEMI; trop 2.485 in the setting acute respiratory failure and prolonged CPR/substance abuse. COVID negative 4. PAFIB with RVR; multifactorial. None furher since 08/05/2019. EF and WM nml 5. CASH; Cr normalized 6. HTN; controlled 7. Aspiration PNA/fever 8. Seizure: new 9. Substance abuse: with cocaine, marijuana, and Xanax. Recommendations No further rhythm ectopies. Continue metoprolol ASA therapy Supportive care MALINDA REYES MD 08/09/19 1624: CARDIO Progress Notes Assessment Assessment Patient seen and examined Acute respiratory failure secondary to likely aspiration with associated illicit drug overdose. intubated/vent. per pulmonary. COVID negative. Continues on a ventilator. Anoxic/toxic encephalopathy: neurology following. PEA arrest; secondary OD. Rhythm stable overnight. NSTEMI; trop 2.485 in the setting acute respiratory failure and prolonged CPR/substance abuse. COVID negative. PAFIB with RVR; multifactorial. None furher since 08/05/2019. EF and WM nml CASH; Cr normalized Aspiration PNA/fever Seizure: MARLENE Carroll APRN August 09, 2019 10:46 MALINDA REYES MD August 09, 2019 16:24
--- NOTE | 2019-08-09 10:52 | NUR ---
trans to [id number] per bed w belongings/hospital items. Covid test NEGATIVE. No changes at this time
--- NOTE | 2019-08-09 12:19 | PN ---
DATE: 08/09/2019 SUBJECTIVE: The patient has continued to be intubated, mechanically ventilated and sedated. According to the nursing staff, he did actually better yesterday. He has recurrent episodes of posturing in a decerebrate fashion. PHYSICAL EXAMINATION: GENERAL: When I examined him this morning, he looked pale. No jaundice, cyanosis, or thyromegaly. No jugular venous distention. No lower limb edema. VITAL SIGNS: His heart rate was 82, blood pressure was 138/62, temperature was 98, respiratory rate was 20, and oxygen saturation was 98% on FiO2 of 50%. HEAD, EYES, EARS, NOSE AND THROAT: Showed normocephalic, atraumatic. NECK: Supple. HEART: Normal first and second heart sounds. No gallop, rub, or murmur. CHEST: Clear to auscultation. No crepitation or rhonchi. ABDOMEN: Distended, soft, nontender. NEUROLOGIC: He is sedated; however, his pupils are equal in size, although his right eye seemed to be deviated to the right. His intake over the last 24 hours was 3389, output was 4210. LABORATORY DATA: His lab work as of this morning showed a serum sodium 140, potassium 3.5, chloride 104, bicarbonate 28, anion gap of 8, BUN 21, creatinine 1.1, estimated GFR was 85 mL per minute. His glucose was 98, calcium was 8.5. Total bilirubin, AST, ALT, alkaline phosphatase were normal. Total protein was 6.1, albumin was 2.3. His white cell count was 8400; hemoglobin 11; hematocrit 34; MCV 89 and platelet count of 199,000. Blood gases showed a pH of 7.433, pCO2 of 14, pO2 of 143, bicarbonate 26, anion gap of 99, oxygen saturation was 100% on FiO2 of 50%. His COVID-19 by PCR was negative. ASSESSMENT: 1. Acute hypoxic respiratory failure secondary to respiratory arrest from drug overdose and I suspect aspiration pneumonia/acute respiratory distress syndrome. 2. Drug overdose, including cocaine, marijuana, and Xanax. We highly suspect anoxic encephalopathy on top of obviously toxic encephalopathy or acute kidney injury that has resolved. His creatinine down from 2-1.165. 3. Hypernatremia has resolved. His serum sodium is down to 140. 4. Hypokalemia, resolved. His most recent serum potassium is up to 4. PLAN: 1. Obviously to continue with sedation and mechanical ventilation. 2. Continue with antibiotic in the form of doxycycline as well as piperacillin and tazobactam. 3. Continue with Keppra for seizure disorder. 4. Continue DVT prophylaxis. 5. Continue GI prophylaxis. 6. Continue nutritional support through his gastrostomy tube. RACHEL PAYNE MD DR: EDITH/chauncey JOB#: [id number] / [id number]
--- NOTE | 2019-08-09 13:36 | PDOC ---
PROGRESS NOTES Assessment EEG, 08/06, consistent with Alpha coma Toxic encephalopathy Anoxic encephalopathy Urine toxic screen was positive for benzodiazepines, cocaine, and cannabinoids Seizure is actually just posturing, doubt this is epileptic Plan Levetiracetam Full supportive ICU care Discussed with , the posturing is a bad sign, I requested that he and the patient's mother discuss DO NOT RESUSCITATE as soon as possible. We can continue full aggressive care for as long as they desire. Given patient's age, lack of comorbidities, I suspect that he will need long-term ICU care, eventually will be getting a PEG and trache if he does not wake up further. His prognosis is more than nil and it would be very difficult to give up on such a young patient quickly. On the other hand, as I explained to the father, it is difficult to watch ones son have these posturing movements. Subjective none Objective Vital Signs Date Time Temp Pulse Resp B/P (MAP) Pulse Ox O2 Delivery O2 Flow Rate FiO2 08/09/19 13:00 84 134/62 (86) 97 Ventilator 08/09/19 12:00 99.6 99.6 08/09/19 06:00 26 Intake and Output 08/09/19 07:00 Intake Total 4149.63 ml Output Total 1365 ml Balance 2784.63 ml IV Total 786.63 ml Tube Feeding 2363 ml Blood Product IV Normal Saline Flush 1000 ml Output Urine Total 1365 ml Gastric Drainage Total 0 ml PHYSICAL EXAM Eyes closed, no response to voice, intubated and sedated. Overbreathes vent PERRL. Absent oculocephalic reflex Positive gag CN: no focal findings. Muscle tone: episodes of tonic posturing Muscle strength: slight withdrawal to pain DTR: 1+ Plantar reflex: silent Gait: not examined Sensory exam: not examined. Cerebellar: not examined Review of Relevant I have reviewed the following items giorgi (where applicable) has been applied. Labs Laboratory Tests Test 08/08/19 01:09 08/08/19 05:15 08/08/19 05:30 08/08/19 08:30 Glucose (Fingerstick) 100 mg/dL (70-99) 79 mg/dL (70-99) White Blood Count 12.9 x10^3/uL (4.0-11.0) Red Blood Count 3.94 x10^6/uL (4.30-5.70) Hemoglobin 11.7 g/dL (13.0-17.5) Hematocrit 35.2 % (39.0-53.0) Mean Corpuscular Volume 89 fL (79-100) Mean Corpuscular Hemoglobin 30 pg (25-35) Mean Corpuscular Hemoglobin Concent 33 g/dL (31-37) Red Cell Distribution Width 13.2 % (11.5-14.5) Platelet Count 174 x10^3/uL (140-400) Neutrophils (%) (Auto) 82 % (31-73) Lymphocytes (%) (Auto) 8 % (24-48) Monocytes (%) (Auto) 9 % (0-9) Eosinophils (%) (Auto) 1 % (0-3) Basophils (%) (Auto) 0 % (0-3) Neutrophils # (Auto) 10.5 x10^3/uL (1.8-7.7) Lymphocytes # (Auto) 1.0 x10^3/uL (1.0-4.8) Monocytes # (Auto) 1.2 x10^3/uL (0.0-1.1) Eosinophils # (Auto) 0.1 x10^3/uL (0.0-0.7) Basophils # (Auto) 0.0 x10^3/uL (0.0-0.2) Sodium Level 140 mmol/L (136-145) Potassium Level 3.6 mmol/L (3.5-5.1) Chloride Level 102 mmol/L (98-107) Carbon Dioxide Level 31 mmol/L (21-32) Anion Gap 7 (6-14) Blood Urea Nitrogen 19 mg/dL (8-26) Creatinine 1.2 mg/dL (0.7-1.3) Estimated GFR (Cockcroft-Gault) 77.2 BUN/Creatinine Ratio 16 (6-20) Glucose Level 92 mg/dL (70-99) Calcium Level 8.4 mg/dL (8.5-10.1) Total Bilirubin 0.8 mg/dL (0.2-1.0) Aspartate Amino Transf (AST/SGOT) 28 U/L (15-37) Alanine Aminotransferase (ALT/SGPT) 26 U/L (16-63) Alkaline Phosphatase 72 U/L (46-116) Total Protein 6.1 g/dL (6.4-8.2) Albumin 2.3 g/dL (3.4-5.0) Albumin/Globulin Ratio 0.6 (1.0-1.7) O2 Saturation 99 % (92-99) Arterial Blood pH 7.46 (7.35-7.45) Arterial Blood pH (Temp corrected) 7.44 Arterial Blood pCO2 at Patient Temp 41 mmHg (35-46) Arterial Blood pCO2 (Temp correct) 44 mmHg Arterial Blood pO2 at Patient Temp 149 mmHg (85-108) Arterial Blood pO2 (Temp corrected) 160 mmHg Arterial Blood HCO3 28 mmol/L (21-28) Arterial Blood Base Excess 4 mmol/L (-3-3) FiO2 60 Test 08/08/19 10:15 08/09/19 05:58 08/09/19 06:00 08/09/19 07:30 Coronavirus (COVID-19)(PCR) See separate report Glucose (Fingerstick) 97 mg/dL (70-99) White Blood Count 8.4 x10^3/uL (4.0-11.0) Red Blood Count 3.91 x10^6/uL (4.30-5.70) Hemoglobin 11.7 g/dL (13.0-17.5) Hematocrit 34.9 % (39.0-53.0) Mean Corpuscular Volume 89 fL (79-100) Mean Corpuscular Hemoglobin 30 pg (25-35) Mean Corpuscular Hemoglobin Concent 33 g/dL (31-37) Red Cell Distribution Width 13.0 % (11.5-14.5) Platelet Count 199 x10^3/uL (140-400) Neutrophils (%) (Auto) 62 % (31-73) Lymphocytes (%) (Auto) 15 % (24-48) Monocytes (%) (Auto) 20 % (0-9) Eosinophils (%) (Auto) 3 % (0-3) Basophils (%) (Auto) 0 % (0-3) Neutrophils # (Auto) 5.2 x10^3/uL (1.8-7.7) Lymphocytes # (Auto) 1.3 x10^3/uL (1.0-4.8) Monocytes # (Auto) 1.7 x10^3/uL (0.0-1.1) Eosinophils # (Auto) 0.2 x10^3/uL (0.0-0.7) Basophils # (Auto) 0.0 x10^3/uL (0.0-0.2) Sodium Level 140 mmol/L (136-145) Potassium Level 3.5 mmol/L (3.5-5.1) Chloride Level 104 mmol/L (98-107) Carbon Dioxide Level 28 mmol/L (21-32) Anion Gap 8 (6-14) Blood Urea Nitrogen 21 mg/dL (8-26) Creatinine 1.1 mg/dL (0.7-1.3) Estimated GFR (Cockcroft-Gault) 85.3 BUN/Creatinine Ratio 19 (6-20) Glucose Level 98 mg/dL (70-99) Calcium Level 8.5 mg/dL (8.5-10.1) Total Bilirubin 0.7 mg/dL (0.2-1.0) Aspartate Amino Transf (AST/SGOT) 49 U/L (15-37) Alanine Aminotransferase (ALT/SGPT) 55 U/L (16-63) Alkaline Phosphatase 75 U/L (46-116) Total Protein 6.1 g/dL (6.4-8.2) Albumin 2.3 g/dL (3.4-5.0) Albumin/Globulin Ratio 0.6 (1.0-1.7) O2 Saturation 99 % (92-99) Arterial Blood pH 7.43 (7.35-7.45) Arterial Blood pCO2 at Patient Temp 40 mmHg (35-46) Arterial Blood pO2 at Patient Temp 143 mmHg (85-108) Arterial Blood HCO3 26 mmol/L (21-28) Arterial Blood Base Excess 2 mmol/L (-3-3) FiO2 50 vent Test 08/09/19 12:42 Glucose (Fingerstick) 122 mg/dL (70-99) Laboratory Tests Test 08/09/19 05:58 08/09/19 06:00 08/09/19 07:30 08/09/19 12:42 Glucose (Fingerstick) 97 mg/dL (70-99) 122 mg/dL (70-99) White Blood Count 8.4 x10^3/uL (4.0-11.0) Red Blood Count 3.91 x10^6/uL (4.30-5.70) Hemoglobin 11.7 g/dL (13.0-17.5) Hematocrit 34.9 % (39.0-53.0) Mean Corpuscular Volume 89 fL (79-100) Mean Corpuscular Hemoglobin 30 pg (25-35) Mean Corpuscular Hemoglobin Concent 33 g/dL (31-37) Red Cell Distribution Width 13.0 % (11.5-14.5) Platelet Count 199 x10^3/uL (140-400) Neutrophils (%) (Auto) 62 % (31-73) Lymphocytes (%) (Auto) 15 % (24-48) Monocytes (%) (Auto) 20 % (0-9) Eosinophils (%) (Auto) 3 % (0-3) Basophils (%) (Auto) 0 % (0-3) Neutrophils # (Auto) 5.2 x10^3/uL (1.8-7.7) Lymphocytes # (Auto) 1.3 x10^3/uL (1.0-4.8) Monocytes # (Auto) 1.7 x10^3/uL (0.0-1.1) Eosinophils # (Auto) 0.2 x10^3/uL (0.0-0.7) Basophils # (Auto) 0.0 x10^3/uL (0.0-0.2) Sodium Level 140 mmol/L (136-145) Potassium Level 3.5 mmol/L (3.5-5.1) Chloride Level 104 mmol/L (98-107) Carbon Dioxide Level 28 mmol/L (21-32) Anion Gap 8 (6-14) Blood Urea Nitrogen 21 mg/dL (8-26) Creatinine 1.1 mg/dL (0.7-1.3) Estimated GFR (Cockcroft-Gault) 85.3 BUN/Creatinine Ratio 19 (6-20) Glucose Level 98 mg/dL (70-99) Calcium Level 8.5 mg/dL (8.5-10.1) Total Bilirubin 0.7 mg/dL (0.2-1.0) Aspartate Amino Transf (AST/SGOT) 49 U/L (15-37) Alanine Aminotransferase (ALT/SGPT) 55 U/L (16-63) Alkaline Phosphatase 75 U/L (46-116) Total Protein 6.1 g/dL (6.4-8.2) Albumin 2.3 g/dL (3.4-5.0) Albumin/Globulin Ratio 0.6 (1.0-1.7) O2 Saturation 99 % (92-99) Arterial Blood pH 7.43 (7.35-7.45) Arterial Blood pCO2 at Patient Temp 40 mmHg (35-46) Arterial Blood pO2 at Patient Temp 143 mmHg (85-108) Arterial Blood HCO3 26 mmol/L (21-28) Arterial Blood Base Excess 2 mmol/L (-3-3) FiO2 50 vent Microbiology 08/05/19 Blood Culture - Preliminary, Resulted NO GROWTH AFTER 4 DAYS Medications Current Medications Sodium Bicarbonate (Sodium Bicarb Adult 8.4% Syr) 100 meq 1X STAT IV Last administered on 08/04/19at 12:32; Start 08/04/19 at 12:13; Stop 08/04/19 at 12:16; Status DC Meropenem 500 mg/ Sodium Chloride 50 ml @ 100 mls/hr Q8HRS IV Last administered on 08/05/19at 06:12; Start 08/04/19 at 14:00; Stop 08/05/19 at 07:44; Status DC Linezolid/Dextrose 300 ml @ 300 mls/hr Q12HR IV Last administered on 08/07/19at 08:48; Start 08/04/19 at 13:00; Stop 08/07/19 at 10:09; Status DC Dextrose (Dextrose 50%-Water Syringe) 12.5 gm PRN Q15MIN PRN IV SEE COMMENTS Last administered on 08/04/19at 13:22; Start 08/04/19 at 13:00 Dextrose 1,000 ml @ 100 mls/hr Q10H IV Last administered on 08/05/19at 21:14; S tart 08/04/19 at 13:00; Stop 08/06/19 at 10:42; Status DC Dextrose (Dextrose 50%-Water Syringe) 12.5 gm PRN Q15MIN PRN IV SEE COMMENTS; Start 08/04/19 at 13:15; Status UNV Midazolam HCl 100 ml @ 0 mls/hr CONT PRN IV SEE PROTOCOL Last administered on 08/08/19at 21:27; Start 08/04/19 at 14:15 Norepinephrine Bitartrate 8 mg/ Dextrose 258 ml @ 15.267 mls/ hr CONT PRN IV PER PROTOCOL Last administered on 08/05/19at 07:48; Start 08/04/19 at 14:15 Furosemide (Lasix) 20 mg 1X ONCE IVP Last administered on 08/04/19at 16:59; Start 08/04/19 at 17:00; Stop 08/04/19 at 17:01; Status DC Heparin Sodium (Porcine) (Heparin Sodium) 5,000 unit Q8HRS SQ Last administered on 08/09/19at 05:47; Start 08/04/19 at 22:00 Famotidine (Pepcid Vial) 20 mg BID IVP Last administered on 08/09/19at 09:35; Start 08/04/19 at 21:00 Meropenem 500 mg/ Sodium Chloride 50 ml @ 100 mls/hr Q6HRS IV Last administered on 08/06/19at 06:23; Start 08/05/19 at 12:00; Stop 08/06/19 at 10:25; Status DC Magnesium Sulfate 50 ml @ 25 mls/hr 1X ONCE IV Last administered on 08/05/19at 08:21; Start 08/05/19 at 08:00; Stop 08/05/19 at 09:59; Status DC Lorazepam (Ativan Inj) 2 mg STK-MED ONCE .ROUTE ; Start 08/05/19 at 19:57; Stop 08/05/19 at 19:57; Status DC Levetiracetam 500 mg/Dextrose 105 ml @ 420 mls/hr Q12HR IV Last administered on 08/09/19at 08:55; Start 08/05/19 at 21:00 Midazolam HCl 50 mg/Sodium Chloride 50 ml @ 1 mls/hr CONT PRN IV SEE I/O ZEKE RD; Start 08/05/19 at 21:00; Status UNV Digoxin (Lanoxin) 250 mcg 1X ONCE IV Last administered on 08/06/19at 00:19; Start 08/06/19 at 00:15; Stop 08/06/19 at 00:16; Status DC Digoxin (Lanoxin) 250 mcg 1X ONCE IV Last administered on 08/06/19at 02:46; Start 08/06/19 at 02:30; Stop 08/06/19 at 02:31; Status DC Digoxin (Lanoxin) 250 mcg 1X ONCE IV Last administered on 08/06/19 09:21; Start 08/06/19 at 08:30; Stop 08/06/19 at 08:31; Status DC Piperacillin Sod/ Tazobactam Sod 3.375 gm/Sodium Chloride 50 ml @ 100 mls/hr Q6HRS IV Last administered on 08/09/19at 11:39; Start 08/06/19 at 12:00 Aspirin (Ecotrin) 81 mg DAILYWBKFT PO ; Start 08/06/19 at 16:30; Stop 08/06/19 at 17:28; Status DC Metoprolol Tartrate (Lopressor) 25 mg BID PO Last administered on 08/09/19 08:5 4; Start 08/06/19 at 21:00 Aspirin (Aspirin Chewable) 81 mg DAILYWBKFT PO Last administered on 08/09/19at 08:53; Start 08/07/19 at 08:00 Acetaminophen (Tylenol Supp) 650 mg PRN Q6HRS PRN FL MILD PAIN / TEMP > 100.3'F; Start 08/06/19 at 18:45; Stop 08/06/19 at 18:43; Status DC Acetaminophen (Tylenol) 650 mg PRN Q6HRS PRN PEG MILD PAIN / TEMP > 100.3'F Last administered on 08/07/19at 08:47; Start 08/06/19 at 18:45 Furosemide (Lasix) 20 mg 1X ONCE IVP Last administered on 08/07/19at 09:00; Start 08/07/19 at 08:45; Stop 08/07/19 at 08:48; Status DC Potassium Chloride/Water 100 ml @ 100 mls/hr Q1H IV Last administered on 08/07/19at 11:35; Start 08/07/19 at 09:00; Stop 08/07/19 at 10:59; Status DC Lorazepam (Ativan Inj) 2 mg STK-MED ONCE .ROUTE ; Start 08/05/19 at 20:00; Stop 08/07/19 at 08:55; Status DC Doxycycline Hyclate 100 mg/ Dextrose 100 ml @ 50 mls/hr Q12HR IV Last administered on 08/09/19at 08:54; Start 08/07/19 at 10:15 Vitals/I & O Vital Sign - Last 24 Hours 08/08/19 08/08/19 08/08/19 08/08/19 14:00 15:00 15:47 16:00 Temp 100.1 100.1 Pulse 96 86 90 Resp B/P (MAP) 137/70 (92) 152/86 (108) 148/74 (98) Pulse Ox 94 98 98 O2 Delivery Ventilator Ventilator Mechanical Ventilator Ventilator 08/08/19 08/08/19 08/08/19 08/08/19 16:06 17:00 18:00 19:00 Pulse 104 90 82 Resp 24 B/P (MAP) 178/89 (118) 128/65 (86) 138/66 (90) Pulse Ox 100 92 99 100 O2 Delivery Ventilator Ventilator Ventilator Ventilator 08/08/19 08/08/19 08/08/19 08/08/19 20:00 20:00 20:06 21:00 Temp 98.8 98.8 Pulse 86 88 B/P (MAP) 133/64 (87) 139/65 (89) Pulse Ox 99 98 99 O2 Delivery Mechanical Ventilator Ventilator Ventilator Ventilator 08/08/19 08/08/19 08/08/19 08/09/19 22:00 23:00 23:23 00:01 Pulse 88 86 90 Resp B/P (MAP) 136/66 (89) 138/68 (91) 136/66 Pulse Ox 97 98 O2 Delivery Ventilator Ventilator Mechanical Ventilator 08/09/19 08/09/19 08/09/19 08/09/19 00:01 00:19 01:00 02:00 Temp 99.2 99.2 Pulse 84 92 84 Resp 24 B/P (MAP) 156/74 (101) 151/78 (102) 126/62 (83) Pulse Ox 99 98 95 99 O2 Delivery Ventilator Ventilator Ventilator Ventilator 08/09/19 08/09/19 08/09/19 08/09/19 03:00 04:00 04:00 04:39 Temp 97.3 97.3 Pulse 84 82 Resp 24 B/P (MAP) 140/69 (92) 149/71 (97) Pulse Ox 99 100 92 O2 Delivery Ventilator Ventilator Mechanical Ventilator Ventilator 08/09/19 08/09/19 08/09/19 08/09/19 05:00 06:00 07:00 07:25 Pulse 82 84 86 Resp 26 26 B/P (MAP) 142/65 (90) 129/60 (83) 130/65 (86) Pulse Ox 97 97 99 O2 Delivery Ventilator Ventilator Ventilator Ventilator 08/09/19 08/09/19 08/09/19 08/09/19 08:00 08:00 08:54 09:00 Temp 98.0 98.0 Pulse 78 82 80 B/P (MAP) 133/67 (89) 137/67 144/67 (92) O2 Delivery Mechanical Ventilator Ventilator Ventilator 08/09/19 08/09/19 08/09/19 08/09/19 10:00 11:00 11:07 12:00 Temp 99.6 99.6 Pulse 82 78 80 B/P (MAP) 138/62 (87) 138/60 (86) 133/60 (84) Pulse Ox 99 98 98 O2 Delivery Ventilator Ventilator Ventilator Ventilator 08/09/19 08/09/19 12:00 13:00 Pulse 84 B/P (MAP) 134/62 (86) Pulse Ox 97 O2 Delivery Mechanical Ventilator Ventilator Intake and Output 08/08/19 08/08/19 08/09/19 15:00 23:00 07:00 Intake Total 695 ml 1701.43 ml 1753.2 ml Output Total 435 ml 540 ml 390 ml Balance 260 ml 1161.43 ml 1363.2 ml KEITH WILLOUGHBY MD August 09, 2019 13:36
[2019-08-09] MEDS: MIDAZOLAM 100mg/100ml NS BAG 100 ML IV PRN (15:03)
--- NOTE | 2019-08-09 15:57 | NUR ---
SS following up with discharge planning. SS discussed with RNMark. Pt is COVID negative. Pt now DNR. Pt remains on the vent. Per RN, mother consenting to withdraw of care. They are waiting on decision from pt's father. SS will continue to follow.
[2019-08-09] MEDS ORDERED: VECURONIUM BOLUS 10 MG VIAL. IV ONE ×3 (18:00→18:15)
[2019-08-10] VITALS (22 sets, daily range): BP systolic 127–190; BP diastolic 58–81
[2019-08-10] MEDS: MIDAZOLAM 100mg/100ml NS BAG 100 ML IV PRN ×3 (00:11→16:41)
[2019-08-10] MEDS: VECURONIUM BOLUS 10 MG VIAL. IV PRN ×2 (00:12→14:32)
[2019-08-10] MEDS: PIPERACILLIN/TAZOBACTAM 3.375 GM in IV NORMAL SALINE 50ML 50 ML IV SCH ×4 (00:14→18:11)
[2019-08-10] MEDS: HEPARIN for SUB-Q USE 5,000 UNIT/ML VIAL. SQ SCH ×2 (05:37→14:11)
--- NOTE | 2019-08-10 05:37 | RAD ---
PORTABLE CHEST 1V Clinical Indication: Respiratory failure. Comparison: AP chest, 2 days ago. Findings: Endotracheal tube tip is at the level of the clavicles. Enteric tube is coiled in the stomach, tip near gastroesophageal junction. Right IJ central line, tip in distal SVC. The cardiomediastinal silhouette is normal. The medial left hemidiaphragm is less well seen which could be due to recurrent left retrocardiac airspace disease. There is no pneumothorax. No pleural effusion is appreciated. No acute bone abnormality. IMPRESSION: 1. Stable life support devices. 2. Mild left retrocardiac airspace disease. Electronically signed by: Cyril Bates MD (08/10/2019 5:34 AM) [id number]
[2019-08-10 06:01] LABS: BASO % 1 % (0-3); EOS # 0.3 x10^3/uL (0.0-0.7); EOS % 4 % (0-3); HEMATOCRIT 34.3 % (39.0-53.0); HEMOGLOBIN 11.5 g/dL (13.0-17.5); LYMPH # 1.5 x10^3/uL (1.0-4.8); LYMPH % 19 % (24-48); MEAN CORPUSCULAR HEMOGLOBIN 30 pg (25-35); MEAN CORPUSCULAR HGB CONC 34 g/dL (31-37); MEAN CORPUSCULAR VOLUME 89 fL (79-100); MONO # 1.7 x10^3/uL (0.0-1.1); MONO % 22 % (0-9); NEUT # 4.3 x10^3/uL (1.8-7.7); NEUT % 55 % (31-73); PLATELET COUNT 224 x10^3/uL (140-400); RED BLOOD COUNT 3.85 x10^6/uL (4.30-5.70); RED CELL DISTRIBUTION WIDTH 13.1 % (11.5-14.5); WHITE BLOOD COUNT 7.9 x10^3/uL (4.0-11.0)
[2019-08-10 06:09] LABS: CREATININE 0.9 mg/dL (0.7-1.3); GFR 107.6; POTASSIUM 4.1 mmol/L (3.5-5.1)
[2019-08-10 07:58] LABS: BASE EXCESS ABG 2 mmol/L (-3-3); HCO3 ABG 26 mmol/L (21-28); PCO2 ABG 40 mmHg (35-46); PO2 ABG 91 mmHg (85-108); SAT O2 ABG 97 % (92-99)
[2019-08-10 08:02] LABS: FIO2 ABG 50%
--- NOTE | 2019-08-10 08:28 | PDOC ---
CARDIO Progress Notes Date and Time Date of Service 08/10/2019 Time of Evaluation 0820 Subjective Subjective: Other (intubated) Vitals Vitals Vital Signs Date Time Temp Pulse Resp B/P (MAP) Pulse Ox O2 Delivery O2 Flow Rate FiO2 08/10/19 07:00 99 40 136/65 (88) 99 Ventilator 08/10/19 04:00 99.2 99.2 Weight Weight [ ] Input and Output Intake and Output Intake and Output 08/10/19 07:00 Intake Total 1956 ml Output Total 2060 ml Balance -104 ml IV Total 473 ml Tube Feeding 1483 ml Other 0 ml Output Urine Total 2060 ml Gastric Drainage Total 0 ml Laboratory Labs Laboratory Tests Test 08/09/19 12:42 08/10/19 00:27 08/10/19 05:35 08/10/19 05:45 Glucose (Fingerstick) 122 mg/dL (70-99) 133 mg/dL (70-99) 93 mg/dL (70-99) White Blood Count 7.9 x10^3/uL (4.0-11.0) Red Blood Count 3.85 x10^6/uL (4.30-5.70) Hemoglobin 11.5 g/dL (13.0-17.5) Hematocrit 34.3 % (39.0-53.0) Mean Corpuscular Volume 89 fL (79-100) Mean Corpuscular Hemoglobin 30 pg (25-35) Mean Corpuscular Hemoglobin Concent 34 g/dL (31-37) Red Cell Distribution Width 13.1 % (11.5-14.5) Platelet Count 224 x10^3/uL (140-400) Neutrophils (%) (Auto) 55 % (31-73) Lymphocytes (%) (Auto) 19 % (24-48) Monocytes (%) (Auto) 22 % (0-9) Eosinophils (%) (Auto) 4 % (0-3) Basophils (%) (Auto) 1 % (0-3) Neutrophils # (Auto) 4.3 x10^3/uL (1.8-7.7) Lymphocytes # (Auto) 1.5 x10^3/uL (1.0-4.8) Monocytes # (Auto) 1.7 x10^3/uL (0.0-1.1) Eosinophils # (Auto) 0.3 x10^3/uL (0.0-0.7) Basophils # (Auto) 0.0 x10^3/uL (0.0-0.2) Sodium Level 138 mmol/L (136-145) Potassium Level 4.1 mmol/L (3.5-5.1) Chloride Level 104 mmol/L (98-107) Carbon Dioxide Level 27 mmol/L (21-32) Anion Gap 7 (6-14) Blood Urea Nitrogen 22 mg/dL (8-26) Creatinine 0.9 mg/dL (0.7-1.3) Estimated GFR (Cockcroft-Gault) 107.6 Glucose Level 89 mg/dL (70-99) Calcium Level 9.0 mg/dL (8.5-10.1) Test 08/10/19 07:45 O2 Saturation 97 % (92-99) Arterial Blood pH 7.43 (7.35-7.45) Arterial Blood pCO2 at Patient Temp 40 mmHg (35-46) Arterial Blood pO2 at Patient Temp 91 mmHg (85-108) Arterial Blood HCO3 26 mmol/L (21-28) Arterial Blood Base Excess 2 mmol/L (-3-3) FiO2 50% Microbiology Micro Microbiology 08/05/19 Blood Culture - Preliminary, Resulted NO GROWTH AFTER 4 DAYS Physical Exam HEENT: Neck Supple W Full Motion Chest: Symmetric LUNGS: Other (mechanical vent ) Heart: RRR (SR) Abdomen: Other (soft ) Extremities: No Edema Neurology: other (sedated, opens eyes, doesnt track) Assessment Assessment 1. Acute respiratory failure secondary to likely aspiration with associated illicit drug overdose. intubated/vent. per pulmonary 2. Anoxic/toxic encephalopathy: presently comatose. neurology following 3. PEA arrest; secondary OD 4. NSTEMI; trop 2.485 in the setting acute respiratory failure and prolonged CPR/substance abuse. 4. PAFIB with RVR; multifactorial. None furher since 08/05/2019. EF and WM nml 5. CASH; Cr normalized 6. HTN; controlled 7. Aspiration PNA/fever 8. Seizure: new 9. Substance abuse: with cocaine, marijuana, and Xanax. Recommendations 1. No further rhythm ectopies, BP normotensive, SR. Continue metoprolol 2. ASA.. Now DNR. Supportive care [employer] August 10, 2019 08:28
--- NOTE | 2019-08-10 09:00 | PDOC ---
Infectious Disease Note Subjective Subjective intubated/sedated Vital Sign Vital Signs Vital Signs Date Time Temp Pulse Resp B/P (MAP) Pulse Ox O2 Delivery O2 Flow Rate FiO2 08/10/19 07:00 99 40 136/65 (88) 99 Ventilator 08/10/19 04:00 99.2 99.2 Physical Exam PHYSICAL EXAM GENERAL: Intubated,looks more comofortable HEENT: Anicteric/ PERRL- small. Tongue with lesion ? mild edema. ETT enteric tube. NECK: Supple. No JVD LUNGS: Decreased breath sound at the bases. HEART: S1, S2 regular. ABDOMEN: Soft, nontender, nondistended. Decreased Bowel sounds present. EXTREMITIES: No edema. No cyanosis. DERMATOLOGIC: Warm, dry. No generalized rash. Multiple tattoos. GENITOURINARY: Gonzalez in place. DIRECTOR OF GIFT PLANNING: Unable to assess, intubated. PSYCHIATRIC: Unable to assess, intubated. IV: RIJ 08/05 Labs Lab Laboratory Tests Test 08/09/19 12:42 08/10/19 00:27 08/10/19 05:35 08/10/19 05:45 Glucose (Fingerstick) 122 mg/dL (70-99) 133 mg/dL (70-99) 93 mg/dL (70-99) White Blood Count 7.9 x10^3/uL (4.0-11.0) Red Blood Count 3.85 x10^6/uL (4.30-5.70) Hemoglobin 11.5 g/dL (13.0-17.5) Hematocrit 34.3 % (39.0-53.0) Mean Corpuscular Volume 89 fL (79-100) Mean Corpuscular Hemoglobin 30 pg (25-35) Mean Corpuscular Hemoglobin Concent 34 g/dL (31-37) Red Cell Distribution Width 13.1 % (11.5-14.5) Platelet Count 224 x10^3/uL (140-400) Neutrophils (%) (Auto) 55 % (31-73) Lymphocytes (%) (Auto) 19 % (24-48) Monocytes (%) (Auto) 22 % (0-9) Eosinophils (%) (Auto) 4 % (0-3) Basophils (%) (Auto) 1 % (0-3) Neutrophils # (Auto) 4.3 x10^3/uL (1.8-7.7) Lymphocytes # (Auto) 1.5 x10^3/uL (1.0-4.8) Monocytes # (Auto) 1.7 x10^3/uL (0.0-1.1) Eosinophils # (Auto) 0.3 x10^3/uL (0.0-0.7) Basophils # (Auto) 0.0 x10^3/uL (0.0-0.2) Sodium Level 138 mmol/L (136-145) Potassium Level 4.1 mmol/L (3.5-5.1) Chloride Level 104 mmol/L (98-107) Carbon Dioxide Level 27 mmol/L (21-32) Anion Gap 7 (6-14) Blood Urea Nitrogen 22 mg/dL (8-26) Creatinine 0.9 mg/dL (0.7-1.3) Estimated GFR (Cockcroft-Gault) 107.6 Glucose Level 89 mg/dL (70-99) Calcium Level 9.0 mg/dL (8.5-10.1) Test 08/10/19 07:45 O2 Saturation 97 % (92-99) Arterial Blood pH 7.43 (7.35-7.45) Arterial Blood pCO2 at Patient Temp 40 mmHg (35-46) Arterial Blood pO2 at Patient Temp 91 mmHg (85-108) Arterial Blood HCO3 26 mmol/L (21-28) Arterial Blood Base Excess 2 mmol/L (-3-3) FiO2 50% Micro Microbiology 08/05/19 Blood Culture - Preliminary, Resulted NO GROWTH AFTER 1 DAY Objective Assessment Fever - better today - ? seizure - reactive/ ? withdrawal 1. Acute hypoxic respiratory failure from drug overdose. some better down to 50 Fi02 and 8 PEEP 2. Status post cardiac arrest at outside hospital, PEA. elevated Troponin - NSTEMI 3. Bilateral pulmonary infiltrates, highly suspected aspiration pneumonia. 4. Leukocytosis - better. 5. Polysubstance abuse with marijuana and cocaine. 6. Drug overdose with Xanax. 7. Encephalopathy, could have component of anoxic brain injury."EEG shows rather fast acitivity, possible alpha coma" 8. Hypoglycemia - corrected. 9. Acute kidney injury - better. 10. Abnormal liver function tests - better 11. Brief Seizure night 08/04 ? 08/06 per nursing 12. Sinusitis 13. ? biting of tongue with seizure Plan Plan of Care D/w Mark - nursing and plan is for [facility] transplant eval and withdrawl of care Will sign off Check COVID with ongoing fever 1. Discontinue Zyvox 5/ given fever and Xray infiltrates but seems some improvement yet - Avoiding Vanc with CASH improving. Dose Doxy 08/06 2. D/c Meropenem 08/04 with ? seizure and dose Zosyn 08/05 3. Follow up labs in am and cultures at [facility]. 4. Neurology following 5. Pulmonary team following. 6. Condition critical. 7. Monitor tongue ? trauma from seizure Discussed with SAYDA SCOTT MD August 10, 2019 09:00
[2019-08-10] MEDS: levETIRAcetam 500 MG in IV DEXTROSE 5% 100ML 100 ML IV SCH (09:06)
[2019-08-10] MEDS: ASPIRIN CHEWABLE 81 MG TABLET. PO SCH (09:09)
[2019-08-10] MEDS: DOXYCYCLINE HYCLATE 100 MG in IV DEXTROSE 5% 100ML 100 ML IV SCH (09:09)
[2019-08-10] MEDS: FAMOTIDINE 20 MG/2 ML VIAL IVP SCH (09:09)
[2019-08-10] MEDS: METOPROLOL TART IMMED RELEASE 25 MG TABLET. PO SCH (09:10)
--- NOTE | 2019-08-10 09:16 | PDOC ---
PROGRESS NOTES Assessment EEG, 08/06, consistent with alpha coma, not brain on bedside examination Toxic encephalopathy Anoxic encephalopathy Urine toxic screen was positive for benzodiazepines, cocaine, and cannabinoids Seizure is actually just posturing, doubt this is epileptic Plan Levetiracetam Full supportive ICU care I understand father is leaning toward withdrawal of care, asked nurse to have them call me if they have any questions Subjective none Objective Vital Signs Date Time Temp Pulse Resp B/P (MAP) Pulse Ox O2 Delivery O2 Flow Rate FiO2 08/10/19 09:10 83 141/77 08/10/19 09:07 98 Ventilator 08/10/19 07:00 40 08/10/19 04:00 99.2 99.2 Intake and Output 08/10/19 06:59 Intake Total 1956 ml Output Total 2060 ml Balance -104 ml IV Total 473 ml Tube Feeding 1483 ml Other 0 ml Output Urine Total 2060 ml Gastric Drainage Total 0 ml PHYSICAL EXAM Eyes closed, no response to voice, intubated, paralyzed, and sedated. Not overbreathing vent PERRL, pinpoint. Absent oculocephalic reflex Positive gag CN: no focal findings. Muscle tone: No tonic posturing Muscle strength: no withdrawal to pain DTR: 1+ Plantar reflex: silent Gait: not examined Sensory exam: not examined. Cerebellar: not examined Review of Relevant I have reviewed the following items giorgi (where applicable) has been applied. Labs Laboratory Tests Test 08/08/19 10:15 08/09/19 05:58 08/09/19 06:00 08/09/19 07:30 Coronavirus (COVID-19)(PCR) See separate report Glucose (Fingerstick) 97 mg/dL (70-99) White Blood Count 8.4 x10^3/uL (4.0-11.0) Red Blood Count 3.91 x10^6/uL (4.30-5.70) Hemoglobin 11.7 g/dL (13.0-17.5) Hematocrit 34.9 % (39.0-53.0) Mean Corpuscular Volume 89 fL (79-100) Mean Corpuscular Hemoglobin 30 pg (25-35) Mean Corpuscular Hemoglobin Concent 33 g/dL (31-37) Red Cell Distribution Width 13.0 % (11.5-14.5) Platelet Count 199 x10^3/uL (140-400) Neutrophils (%) (Auto) 62 % (31-73) Lymphocytes (%) (Auto) 15 % (24-48) Monocytes (%) (Auto) 20 % (0-9) Eosinophils (%) (Auto) 3 % (0-3) Basophils (%) (Auto) 0 % (0-3) Neutrophils # (Auto) 5.2 x10^3/uL (1.8-7.7) Lymphocytes # (Auto) 1.3 x10^3/uL (1.0-4.8) Monocytes # (Auto) 1.7 x10^3/uL (0.0-1.1) Eosinophils # (Auto) 0.2 x10^3/uL (0.0-0.7) Basophils # (Auto) 0.0 x10^3/uL (0.0-0.2) Sodium Level 140 mmol/L (136-145) Potassium Level 3.5 mmol/L (3.5-5.1) Chloride Level 104 mmol/L (98-107) Carbon Dioxide Level 28 mmol/L (21-32) Anion Gap 8 (6-14) Blood Urea Nitrogen 21 mg/dL (8-26) Creatinine 1.1 mg/dL (0.7-1.3) Estimated GFR (Cockcroft-Gault) 85.3 BUN/Creatinine Ratio 19 (6-20) Glucose Level 98 mg/dL (70-99) Calcium Level 8.5 mg/dL (8.5-10.1) Total Bilirubin 0.7 mg/dL (0.2-1.0) Aspartate Amino Transf (AST/SGOT) 49 U/L (15-37) Alanine Aminotransferase (ALT/SGPT) 55 U/L (16-63) Alkaline Phosphatase 75 U/L (46-116) Total Protein 6.1 g/dL (6.4-8.2) Albumin 2.3 g/dL (3.4-5.0) Albumin/Globulin Ratio 0.6 (1.0-1.7) O2 Saturation 99 % (92-99) Arterial Blood pH 7.43 (7.35-7.45) Arterial Blood pCO2 at Patient Temp 40 mmHg (35-46) Arterial Blood pO2 at Patient Temp 143 mmHg (85-108) Arterial Blood HCO3 26 mmol/L (21-28) Arterial Blood Base Excess 2 mmol/L (-3-3) FiO2 50 vent Test 08/09/19 12:42 08/10/19 00:27 08/10/19 05:35 08/10/19 05:45 Glucose (Fingerstick) 122 mg/dL (70-99) 133 mg/dL (70-99) 93 mg/dL (70-99) White Blood Count 7.9 x10^3/uL (4.0-11.0) Red Blood Count 3.85 x10^6/uL (4.30-5.70) Hemoglobin 11.5 g/dL (13.0-17.5) Hematocrit 34.3 % (39.0-53.0) Mean Corpuscular Volume 89 fL (79-100) Mean Corpuscular Hemoglobin 30 pg (25-35) Mean Corpuscular Hemoglobin Concent 34 g/dL (31-37) Red Cell Distribution Width 13.1 % (11.5-14.5) Platelet Count 224 x10^3/uL (140-400) Neutrophils (%) (Auto) 55 % (31-73) Lymphocytes (%) (Auto) 19 % (24-48) Monocytes (%) (Auto) 22 % (0-9) Eosinophils (%) (Auto) 4 % (0-3) Basophils (%) (Auto) 1 % (0-3) Neutrophils # (Auto) 4.3 x10^3/uL (1.8-7.7) Lymphocytes # (Auto) 1.5 x10^3/uL (1.0-4.8) Monocytes # (Auto) 1.7 x10^3/uL (0.0-1.1) Eosinophils # (Auto) 0.3 x10^3/uL (0.0-0.7) Basophils # (Auto) 0.0 x10^3/uL (0.0-0.2) Sodium Level 138 mmol/L (136-145) Potassium Level 4.1 mmol/L (3.5-5.1) Chloride Level 104 mmol/L (98-107) Carbon Dioxide Level 27 mmol/L (21-32) Anion Gap 7 (6-14) Blood Urea Nitrogen 22 mg/dL (8-26) Creatinine 0.9 mg/dL (0.7-1.3) Estimated GFR (Cockcroft-Gault) 107.6 Glucose Level 89 mg/dL (70-99) Calcium Level 9.0 mg/dL (8.5-10.1) Test 08/10/19 07:45 O2 Saturation 97 % (92-99) Arterial Blood pH 7.43 (7.35-7.45) Arterial Blood pCO2 at Patient Temp 40 mmHg (35-46) Arterial Blood pO2 at Patient Temp 91 mmHg (85-108) Arterial Blood HCO3 26 mmol/L (21-28) Arterial Blood Base Excess 2 mmol/L (-3-3) FiO2 50% Laboratory Tests Test 08/09/19 12:42 08/10/19 00:27 08/10/19 05:35 08/10/19 05:45 Glucose (Fingerstick) 122 mg/dL (70-99) 133 mg/dL (70-99) 93 mg/dL (70-99) White Blood Count 7.9 x10^3/uL (4.0-11.0) Red Blood Count 3.85 x10^6/uL (4.30-5.70) Hemoglobin 11.5 g/dL (13.0-17.5) Hematocrit 34.3 % (39.0-53.0) Mean Corpuscular Volume 89 fL (79-100) Mean Corpuscular Hemoglobin 30 pg (25-35) Mean Corpuscular Hemoglobin Concent 34 g/dL (31-37) Red Cell Distribution Width 13.1 % (11.5-14.5) Platelet Count 224 x10^3/uL (140-400) Neutrophils (%) (Auto) 55 % (31-73) Lymphocytes (%) (Auto) 19 % (24-48) Monocytes (%) (Auto) 22 % (0-9) Eosinophils (%) (Auto) 4 % (0-3) Basophils (%) (Auto) 1 % (0-3) Neutrophils # (Auto) 4.3 x10^3/uL (1.8-7.7) Lymphocytes # (Auto) 1.5 x10^3/uL (1.0-4.8) Monocytes # (Auto) 1.7 x10^3/uL (0.0-1.1) Eosinophils # (Auto) 0.3 x10^3/uL (0.0-0.7) Basophils # (Auto) 0.0 x10^3/uL (0.0-0.2) Sodium Level 138 mmol/L (136-145) Potassium Level 4.1 mmol/L (3.5-5.1) Chloride Level 104 mmol/L (98-107) Carbon Dioxide Level 27 mmol/L (21-32) Anion Gap 7 (6-14) Blood Urea Nitrogen 22 mg/dL (8-26) Creatinine 0.9 mg/dL (0.7-1.3) Estimated GFR (Cockcroft-Gault) 107.6 Glucose Level 89 mg/dL (70-99) Calcium Level 9.0 mg/dL (8.5-10.1) Test 08/10/19 07:45 O2 Saturation 97 % (92-99) Arterial Blood pH 7.43 (7.35-7.45) Arterial Blood pCO2 at Patient Temp 40 mmHg (35-46) Arterial Blood pO2 at Patient Temp 91 mmHg (85-108) Arterial Blood HCO3 26 mmol/L (21-28) Arterial Blood Base Excess 2 mmol/L (-3-3) FiO2 50% Microbiology 08/05/19 Blood Culture - Preliminary, Resulted NO GROWTH AFTER 4 DAYS Medications Current Medications Sodium Bicarbonate (Sodium Bicarb Adult 8.4% Syr) 100 meq 1X STAT IV Last administered on 08/04/19at 12:32; Start 08/04/19 at 12:13; Stop 08/04/19 at 12:16; Status DC Meropenem 500 mg/ Sodium Chloride 50 ml @ 100 mls/hr Q8HRS IV Last adminis tered on 08/05/19at 06:12; Start 08/04/19 at 14:00; Stop 08/05/19 at 07:44; Status DC Linezolid/Dextrose 300 ml @ 300 mls/hr Q12HR IV Last administered on 08/07/19at 08:48; Start 08/04/19 at 13:00; Stop 08/07/19 at 10:09; Status DC Dextrose (Dextrose 50%-Water Syringe) 12.5 gm PRN Q15MIN PRN IV SEE COMMENTS Last administered on 08/04/19at 13:22; Start 08/04/19 at 13:00 Dextrose 1,000 ml @ 100 mls/hr Q10H IV Last administered on 08/05/19at 21:14; Start 08/04/19 at 13:00; Stop 08/06/19 at 10:42; Status DC Dextrose (Dextrose 50%-Water Syringe) 12.5 gm PRN Q15MIN PRN IV SEE COMMENTS; Start 08/04/19 at 13:15; Status UNV Midazolam HCl 100 ml @ 0 mls/hr CONT PRN IV SEE PROTOCOL Last administered on 08/10/19at 00:11; Start 08/04/19 at 14:15 Norepinephrine Bitartrate 8 mg/ Dextrose 258 ml @ 15.267 mls/ hr CONT PRN IV PER PROTOCOL Last administered on 08/05/19at 07:48; Start 08/04/19 at 14:15 Furosemide (Lasix) 20 mg 1X ONCE IVP Last administered on 08/04/19at 16:59; Start 08/04/19 at 17:00; Stop 08/04/19 at 17:01; Status DC Heparin Sodium (Porcine) (Heparin Sodium) 5,000 unit Q8HRS SQ Last administered on 08/10/19at 05:37; Start 08/04/19 at 22:00 Famotidine (Pepcid Vial) 20 mg BID IVP Last administered on 08/10/19at 09:09; Start 08/04/19 at 21:00 Meropenem 500 mg/ Sodium Chloride 50 ml @ 100 mls/hr Q6HRS IV Last administered on 08/06/19at 06:23; Start 08/05/19 at 12:00; Stop 08/06/19 at 10:25; Status DC Magnesium Sulfate 50 ml @ 25 mls/hr 1X ONCE IV Last administered on 08/05/19at 08:21; Start 08/05/19 at 08:00; Stop 08/05/19 at 09:59; Status DC Lorazepam (Ativan Inj) 2 mg STK-MED ONCE .ROUTE ; Start 08/05/19 at 19:57; Stop 08/05/19 at 19:57; Status DC Levetiracetam 500 mg/Dextrose 105 ml @ 420 mls/hr Q12HR IV Last administered on 08/10/19at 09:06; Start 08/05/19 at 21:00 Midazolam HCl 50 mg/Sodium Chloride 50 ml @ 1 mls/hr CONT PRN IV SEE I/O RECORD; Start 08/05/19 at 21:00; Status UNV Digoxin (Lanoxin) 250 mcg 1X ONCE IV Last administered on 08/06/19at 00:19; Start 08/06/19 at 00:15; Stop 08/06/19 at 00:16; Status DC Digoxin (Lanoxin) 250 mcg 1X ONCE IV Last administered on 08/06/19at 02:46; Start 08/06/19 at 02:30; Stop 08/06/19 at 02:31; Status DC Digoxin (Lanoxin) 250 mcg 1X ONCE IV Last administered on 08/06/19 09:21; Start 08/06/19 at 08:30; Stop 08/06/19 at 08:31; Status DC Piperacillin Sod/ Tazobactam Sod 3.375 gm/Sodium Chloride 50 ml @ 100 mls/hr Q6HRS IV Last administered on 08/10/19at 05:35; Start 08/06/19 at 12:00 Aspirin (Ecotrin) 81 mg DAILYWBKFT PO ; Start 08/06/19 at 16:30; Stop 08/06/19 at 17:28; Status DC Metoprolol Tartrate (Lopressor) 25 mg BID PO Last administered on 08/10/19 09:10; Start 08/06/19 at 21:00 Aspirin (Aspirin Chewable) 81 mg DAILYWBKFT PO Last administered on 08/10/19 09:09; Start 08/07/19 at 08:00 Acetaminophen (Tylenol Supp) 650 mg PRN Q6HRS PRN ME MILD PAIN / TEMP > 100.3'F; Start 08/06/19 at 18:45; Stop 08/06/19 at 18:43; Status DC Acetaminophen (Tylenol) 650 mg PRN Q6HRS PRN PEG MILD PAIN / TEMP > 100.3'F Last administered on 08/07/19at 08:47; Start 08/06/19 at 18:45 Furosemide (Lasix) 20 mg 1X ONCE IVP Last administered on 08/07/19at 09:00; Start 08/07/19 at 08:45; Stop 08/07/19 at 08:48; Status DC Potassium Chloride/Water 100 ml @ 100 mls/hr Q1H IV Last administered on 08/07/19at 11:35; Start 08/07/19 at 09:00; Stop 08/07/19 at 10:59; Status DC Lorazepam (Ativan Inj) 2 mg STK-MED ONCE .ROUTE ; Start 08/05/19 at 20:00; Stop 08/07/19 at 08:55; Status DC Doxycycline Hyclate 100 mg/ Dextrose 100 ml @ 50 mls/hr Q12HR IV Last administered on 08/10/19at 09:09; Start 08/07/19 at 10:15 Vecuronium Bellona (Norcuron Bolus) 6 mg 1X ONCE IV Last administered on 08/09/19at 18:17; Start 08/09/19 at 18:15; Stop 08/09/19 at 18:16; Status DC Vecuronium Bellona (Norcuron Bolus) 10 mg STK-MED ONCE IV ; Start 08/09/19 at 18:05; Stop 08/09/19 at 18:05; Status DC Vecuronium Bellona (Norcuron Bolus) 6 mg PRN Q6HRS PRN IV DYSTONIC REACTION Last administered on 08/10/19at 00:12; Start 08/09/19 at 19:45 Vecuronium Bellona (Norcuron Bolus) 10 mg STK-MED ONCE IV ; Start 08/09/19 at 18:00; Stop 08/10/19 at 08:42; Status DC Vitals/I & O Vital Sign - Last 24 Hours 08/09/19 08/09/19 08/09/19 08/09/19 10:00 11:00 11:07 12:00 Temp 99.6 99.6 Pulse 82 78 80 B/P (MAP) 138/62 (87) 138/60 (86) 133/60 (84) Pulse Ox 99 98 98 O2 Delivery Ventilator Ventilator Ventilator Ventilator 08/09/19 08/09/19 08/09/19 08/09/19 12:00 12:30 13:00 13:42 Pulse 84 B/P (MAP) 134/62 (86) Pulse Ox 97 98 O2 Delivery Mechanical Ventilator Ventilator Ventilator Ventilator 08/09/19 08/09/19 08/09/19 08/09/19 14:00 15:00 15:31 16:00 Pulse 85 80 Resp 20 20 B/P (MAP) 131/58 (82) 140/62 (88) Pulse Ox 99 90 90 O2 Delivery Ventilator Ventilator Ventilator Mechanical Ventilator 08/09/19 08/09/19 08/09/19 08/09/19 16:00 17:00 18:00 18:10 Temp 100.2 100.2 Pulse 95 90 97 Resp 28 26 45 B/P (MAP) 143/58 (86) 140/65 (90) 148/66 (93) Pulse Ox 99 97 96 90 O2 Delivery Ventilator Ventilator Ventilator Ventilator 08/09/19 08/09/19 08/09/19 08/09/19 19:00 20:00 20:00 20:41 Temp 100.0 100.0 Pulse 90 93 Resp 40 45 B/P (MAP) 139/69 (92) 145/64 (91) Pulse Ox 96 95 99 O2 Delivery Ventilator Mechanical Ventilator Ventilator Ventilator 08/09/19 08/09/19 08/09/19 08/09/19 21:00 22:00 22:59 23:00 Pulse 87 87 98 85 Resp 24 24 27 B/P (MAP) 144/65 (91) 155/67 (96) 145/66 145/66 (92) Pulse Ox 96 96 96 O2 Delivery Ventilator Ventilator Ventilator 08/09/19 08/09/19 08/09/19 08/10/19 23:59 23:59 23:59 01:00 Temp 98.3 98.3 Pulse 93 82 Resp 22 24 B/P (MAP) 151/79 (103) 128/67 (87) Pulse Ox 92 99 99 O2 Delivery Mechanical Ventilator Ventilator Ventilator Ventilator 08/10/19 08/10/19 08/10/19 08/10/19 02:00 03:00 03:01 04:00 Temp 99.2 99.2 Pulse 72 78 75 Resp 22 20 21 B/P (MAP) 131/72 (91) 131/70 (90) 141/69 (93) Pulse Ox 98 99 99 93 O2 Delivery Ventilator Ventilator Ventilator Ventilator 08/10/19 08/10/19 08/10/19 08/10/19 04:00 04:14 05:00 06:00 Pulse 76 84 Resp 21 22 B/P (MAP) 149/77 (101) 154/81 (105) Pulse Ox 99 99 96 O2 Delivery Mechanical Ventilator Ventilator Ventilator Ventilator 5/808/10/19 08/10/19 08/10/19 06:58 07:00 09:07 09:10 Pulse 99 83 Resp 40 B/P (MAP) 136/65 (88) 141/77 Pulse Ox 94 99 98 O2 Delivery Ventilator Ventilator Ventilator Intake and Output 08/09/19 08/09/19 08/10/19 14:59 22:59 06:59 Intake Total 615 ml 588 ml 753 ml Output Total 575 ml 725 ml 760 ml Balance 40 ml -137 ml -7 ml KEITH WILLOUGHBY MD August 10, 2019 09:16
--- NOTE | 2019-08-10 11:19 | PN ---
DATE: 08/10/2019 SUBJECTIVE: The patient continued to be intubated, mechanically ventilated. His pupils are equal. He does not respond to verbal, but does withdraw to painful stimuli. He was seen by Dr. Perdomo this morning. Again he states that the patient is not brain . On bedside examination, his EEG is consistent with alpha coma. PHYSICAL EXAMINATION: GENERAL: When I examined him this morning, he looked pale, not jaundiced, cyanosis, or thyromegaly. No jugular venous distention or limb edema. VITAL SIGNS: His heart rate was 77, blood pressure was 134/71, temperature was 99.7, respiratory rate was 22, and oxygen saturation was 99% on FiO2 of 50%. HEAD, EYES, EARS, NOSE, AND THROAT: Showed normocephalic, atraumatic. He has orotracheal and orogastric tube in place. HEART: Showed normal first and second heart sounds. No gallop, rub, or murmur. CHEST: Clear to auscultation. No crepitation or rhonchi. ABDOMEN: Distended, soft, nontender. NEUROLOGIC: He is encephalopathic. Over the last 24 hours, his intake was 4150, output was 1400. LABORATORY DATA: As of this morning, his white cell count was 7900; hemoglobin 11.5; hematocrit 34; MCV 89; and platelet count 224,000. Serum sodium was 138, potassium 4.1, chloride 104, bicarbonate 27, anion gap of ____, BUN 22, creatinine 0.9, estimated GFR was 107 mL per minute. His glucose was 89, calcium was 9. His blood gas this morning showed a pH of 7.43, pCO2 of 40, pO2 of 91, bicarbonate of 26, and oxygen saturation was 97% on FiO2 of 50%. ASSESSMENT: 1. Acute hypoxic respiratory failure secondary to respiratory arrest from drug overdose, suspected aspiration pneumonia/acute respiratory distress syndrome. 2. Drug overdose including cocaine, marijuana, and Xanax. 3. Highly suspected anoxic encephalopathy on top of obvious toxic myopathy. 4. Acute kidney injury, which has resolved. His creatinine is down from 2-1.1. 5. Hypernatremia, resolved. His serum sodium is down to 140. 6. Hypokalemia, resolved. His most recent serum potassium is up to 4. 7. 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 PLAN: 1. Obviously to continue with ____ and mechanical ventilation. 2. Continue antibiotic in the form doxycycline and piperacillin. 3. Continue with Keppra for seizure disorder. 4. Continue with DVT prophylaxis. 5. Continue with GI prophylaxis. 6. Continue nutritional support through his gastrostomy tube. 7. Currently, the family, in particular, father is leaning to withdrawal care. RACHEL PAYNE MD DR: EDITH/chauncey JOB#: [id number] / [id number]
--- NOTE | 2019-08-10 12:26 | NUR ---
SS following up with discharge planning. SS reviewed pt chart and discussed with RNMark. Pt's RN reported that they will probably withdraw care around 1700 today. SS will continue to follow.
[2019-08-10] MEDS ORDERED: methylPREDNISolone SOD SUCC 500 MG in IV NORMAL SALINE 100ML 100 ML IV ONE (13:15)
[2019-08-10] MEDS ORDERED: HEPARIN 30000 UNIT/30 ML IV ONE (13:45)
[2019-08-10 14:26] LABS: BASO % 0 % (0-3); EOS # 0.4 x10^3/uL (0.0-0.7); EOS % 5 % (0-3); HEMATOCRIT 34.5 % (39.0-53.0); HEMOGLOBIN 11.7 g/dL (13.0-17.5); LYMPH # 1.5 x10^3/uL (1.0-4.8); LYMPH % 19 % (24-48); MEAN CORPUSCULAR HEMOGLOBIN 30 pg (25-35); MEAN CORPUSCULAR HGB CONC 34 g/dL (31-37); MEAN CORPUSCULAR VOLUME 88 fL (79-100); MONO # 1.7 x10^3/uL (0.0-1.1); MONO % 22 % (0-9); NEUT # 4.3 x10^3/uL (1.8-7.7); NEUT % 54 % (31-73); PLATELET COUNT 255 x10^3/uL (140-400); WHITE BLOOD COUNT 7.9 x10^3/uL (4.0-11.0)
[2019-08-10 14:28] LABS: BILIRUBIN,URINE NEGATIVE (NEG); CLARITY,URINE TURBID; COLOR,URINE YELLOW; NITRITE,URINE NEGATIVE (NEG); PROTEIN,URINE NEGATIVE (NEG-TRACE); UROBILINOGEN,URINE 0.2 mg/dL (0.2 mg/dL)
[2019-08-10 14:33] LABS: CALCIUM 8.7 mg/dL (8.5-10.1); CREATININE 0.9 mg/dL (0.7-1.3); GFR 107.6; POTASSIUM 3.9 mmol/L (3.5-5.1)
[2019-08-10 14:36] LABS: ALBUMIN 2.5 g/dL (3.4-5.0); DIRECT BILIRUBIN 0.3 mg/dL (0.0-0.2); MAGNESIUM 2.2 mg/dL (1.8-2.4); PHOSPHORUS 4.3 mg/dL (2.6-4.7); TOTAL BILIRUBIN 0.7 mg/dL (0.2-1.0); TOTAL PROTEIN 6.4 g/dL (6.4-8.2)
[2019-08-10] MEDS ORDERED: METOPROLOL TARTRATE 5 MG/5 ML VIAL. IVP PRN (14:45)
--- NOTE | 2019-08-10 14:53 | PDOC ---
PULMONARY PROGRESS NOTES Subjective Patient intubated, Vitals Vital Signs Date Time Temp Pulse Resp B/P (MAP) Pulse Ox O2 Delivery O2 Flow Rate FiO2 08/10/19 12:40 98 Ventilator 08/10/19 12:00 99.0 75 25 135/69 (91) 99.0 Lungs: Clear Cardiovascular: S1 Abdomen: Soft Extremities: No Edema Skin: Warm Labs Laboratory Tests Test 08/09/19 05:58 08/09/19 06:00 08/09/19 07:30 08/09/19 12:42 Glucose (Fingerstick) 97 mg/dL (70-99) 122 mg/dL (70-99) White Blood Count 8.4 x10^3/uL (4.0-11.0) Red Blood Count 3.91 x10^6/uL (4.30-5.70) Hemoglobin 11.7 g/dL (13.0-17.5) Hematocrit 34.9 % (39.0-53.0) Mean Corpuscular Volume 89 fL (79-100) Mean Corpuscular Hemoglobin 30 pg (25-35) Mean Corpuscular Hemoglobin Concent 33 g/dL (31-37) Red Cell Distribution Width 13.0 % (11.5-14.5) Platelet Count 199 x10^3/uL (140-400) Neutrophils (%) (Auto) 62 % (31-73) Lymphocytes (%) (Auto) 15 % (24-48) Monocytes (%) (Auto) 20 % (0-9) Eosinophils (%) (Auto) 3 % (0-3) Basophils (%) (Auto) 0 % (0-3) Neutrophils # (Auto) 5.2 x10^3/uL (1.8-7.7) Lymphocytes # (Auto) 1.3 x10^3/uL (1.0-4.8) Monocytes # (Auto) 1.7 x10^3/uL (0.0-1.1) Eosinophils # (Auto) 0.2 x10^3/uL (0.0-0.7) Basophils # (Auto) 0.0 x10^3/uL (0.0-0.2) Sodium Level 140 mmol/L (136-145) Potassium Level 3.5 mmol/L (3.5-5.1) Chloride Level 104 mmol/L (98-107) Carbon Dioxide Level 28 mmol/L (21-32) Anion Gap 8 (6-14) Blood Urea Nitrogen 21 mg/dL (8-26) Creatinine 1.1 mg/dL (0.7-1.3) Estimated GFR (Cockcroft-Gault) 85.3 BUN/Creatinine Ratio 19 (6-20) Glucose Level 98 mg/dL (70-99) Calcium Level 8.5 mg/dL (8.5-10.1) Total Bilirubin 0.7 mg/dL (0.2-1.0) Aspartate Amino Transf (AST/SGOT) 49 U/L (15-37) Alanine Aminotransferase (ALT/SGPT) 55 U/L (16-63) Alkaline Phosphatase 75 U/L (46-116) Total Protein 6.1 g/dL (6.4-8.2) Albumin 2.3 g/dL (3.4-5.0) Albumin/Globulin Ratio 0.6 (1.0-1.7) O2 Saturation 99 % (92-99) Arterial Blood pH 7.43 (7.35-7.45) Arterial Blood pCO2 at Patient Temp 40 mmHg (35-46) Arterial Blood pO2 at Patient Temp 143 mmHg (85-108) Arterial Blood HCO3 26 mmol/L (21-28) Arterial Blood Base Excess 2 mmol/L (-3-3) FiO2 50 vent Test 08/10/19 00:27 08/10/19 05:35 08/10/19 05:45 08/10/19 07:45 Glucose (Fingerstick) 133 mg/dL (70-99) 93 mg/dL (70-99) White Blood Count 7.9 x10^3/uL (4.0-11.0) Red Blood Count 3.85 x10^6/uL (4.30-5.70) Hemoglobin 11.5 g/dL (13.0-17.5) Hematocrit 34.3 % (39.0-53.0) Mean Corpuscular Volume 89 fL (79-100) Mean Corpuscular Hemoglobin 30 pg (25-35) Mean Corpuscular Hemoglobin Concent 34 g/dL (31-37) Red Cell Distribution Width 13.1 % (11.5-14.5) Platelet Count 224 x10^3/uL (140-400) Neutrophils (%) (Auto) 55 % (31-73) Lymphocytes (%) (Auto) 19 % (24-48) Monocytes (%) (Auto) 22 % (0-9) Eosinophils (%) (Auto) 4 % (0-3) Basophils (%) (Auto) 1 % (0-3) Neutrophils # (Auto) 4.3 x10^3/uL (1.8-7.7) Lymphocytes # (Auto) 1.5 x10^3/uL (1.0-4.8) Monocytes # (Auto) 1.7 x10^3/uL (0.0-1.1) Eosinophils # (Auto) 0.3 x10^3/uL (0.0-0.7) Basophils # (Auto) 0.0 x10^3/uL (0.0-0.2) Sodium Level 138 mmol/L (136-145) Potassium Level 4.1 mmol/L (3.5-5.1) Chloride Level 104 mmol/L (98-107) Carbon Dioxide Level 27 mmol/L (21-32) Anion Gap 7 (6-14) Blood Urea Nitrogen 22 mg/dL (8-26) Creatinine 0.9 mg/dL (0.7-1.3) Estimated GFR (Cockcroft-Gault) 107.6 Glucose Level 89 mg/dL (70-99) Calcium Level 9.0 mg/dL (8.5-10.1) O2 Saturation 97 % (92-99) Arterial Blood pH 7.43 (7.35-7.45) Arterial Blood pCO2 at Patient Temp 40 mmHg (35-46) Arterial Blood pO2 at Patient Temp 91 mmHg (85-108) Arterial Blood HCO3 26 mmol/L (21-28) Arterial Blood Base Excess 2 mmol/L (-3-3) FiO2 50% Test 08/10/19 14:00 White Blood Count 7.9 x10^3/uL (4.0-11.0) Red Blood Count 3.90 x10^6/uL (4.30-5.70) Hemoglobin 11.7 g/dL (13.0-17.5) Hematocrit 34.5 % (39.0-53.0) Mean Corpuscular Volume 88 fL (79-100) Mean Corpuscular Hemoglobin 30 pg (25-35) Mean Corpuscular Hemoglobin Concent 34 g/dL (31-37) Red Cell Distribution Width 13.0 % (11.5-14.5) Platelet Count 255 x10^3/uL (140-400) Neutrophils (%) (Auto) 54 % (31-73) Lymphocytes (%) (Auto) 19 % (24-48) Monocytes (%) (Auto) 22 % (0-9) Eosinophils (%) (Auto) 5 % (0-3) Basophils (%) (Auto) 0 % (0-3) Neutrophils # (Auto) 4.3 x10^3/uL (1.8-7.7) Lymphocytes # (Auto) 1.5 x10^3/uL (1.0-4.8) Monocytes # (Auto) 1.7 x10^3/uL (0.0-1.1) Eosinophils # (Auto) 0.4 x10^3/uL (0.0-0.7) Basophils # (Auto) 0.0 x10^3/uL (0.0-0.2) Sodium Level 139 mmol/L (136-145) Potassium Level 3.9 mmol/L (3.5-5.1) Chloride Level 102 mmol/L (98-107) Carbon Dioxide Level 25 mmol/L (21-32) Anion Gap 12 (6-14) Blood Urea Nitrogen 20 mg/dL (8-26) Creatinine 0.9 mg/dL (0.7-1.3) Estimated GFR (Cockcroft-Gault) 107.6 Glucose Level 94 mg/dL (70-99) Calcium Level 8.7 mg/dL (8.5-10.1) Ionized Calcium 1.18 mmol/L (1.13-1.32) Phosphorus Level 4.3 mg/dL (2.6-4.7) Magnesium Level 2.2 mg/dL (1.8-2.4) Total Bilirubin 0.7 mg/dL (0.2-1.0) Direct Bilirubin 0.3 mg/dL (0.0-0.2) Gamma Glutamyl Transpeptidase 150 U/L (10-85) Aspartate Amino Transf (AST/SGOT) 56 U/L (15-37) Alanine Aminotransferase (ALT/SGPT) 110 U/L (16-63) Alkaline Phosphatase 76 U/L (46-116) Lactate Dehydrogenase 272 U/L (85-227) Total Protein 6.4 g/dL (6.4-8.2) Albumin 2.5 g/dL (3.4-5.0) Amylase Level 172 U/L (25-115) Lipase 550 U/L (73-393) Laboratory Tests Test 08/10/19 00:27 08/10/19 05:35 08/10/19 05:45 08/10/19 07:45 Glucose (Fingerstick) 133 mg/dL (70-99) 93 mg/dL (70-99) White Blood Count 7.9 x10^3/uL (4.0-11.0) Red Blood Count 3.85 x10^6/uL (4.30-5.70) Hemoglobin 11.5 g/dL (13.0-17.5) Hematocrit 34.3 % (39.0-53.0) Mean Corpuscular Volume 89 fL (79-100) Mean Corpuscular Hemoglobin 30 pg (25-35) Mean Corpuscular Hemoglobin Concent 34 g/dL (31-37) Red Cell Distribution Width 13.1 % (11.5-14.5) Platelet Count 224 x10^3/uL (140-400) Neutrophils (%) (Auto) 55 % (31-73) Lymphocytes (%) (Auto) 19 % (24-48) Monocytes (%) (Auto) 22 % (0-9) Eosinophils (%) (Auto) 4 % (0-3) Basophils (%) (Auto) 1 % (0-3) Neutrophils # (Auto) 4.3 x10^3/uL (1.8-7.7) Lymphocytes # (Auto) 1.5 x10^3/uL (1.0-4.8) Monocytes # (Auto) 1.7 x10^3/uL (0.0-1.1) Eosinophils # (Auto) 0.3 x10^3/uL (0.0-0.7) Basophils # (Auto) 0.0 x10^3/uL (0.0-0.2) Sodium Level 138 mmol/L (136-145) Potassium Level 4.1 mmol/L (3.5-5.1) Chloride Level 104 mmol/L (98-107) Carbon Dioxide Level 27 mmol/L (21-32) Anion Gap 7 (6-14) Blood Urea Nitrogen 22 mg/dL (8-26) Creatinine 0.9 mg/dL (0.7-1.3) Estimated GFR (Cockcroft-Gault) 107.6 Glucose Level 89 mg/dL (70-99) Calcium Level 9.0 mg/dL (8.5-10.1) O2 Saturation 97 % (92-99) Arterial Blood pH 7.43 (7.35-7.45) Arterial Blood pCO2 at Patient Temp 40 mmHg (35-46) Arterial Blood pO2 at Patient Temp 91 mmHg (85-108) Arterial Blood HCO3 26 mmol/L (21-28) Arterial Blood Base Excess 2 mmol/L (-3-3) FiO2 50% Test 08/10/19 14:00 White Blood Count 7.9 x10^3/uL (4.0-11.0) Red Blood Count 3.90 x10^6/uL (4.30-5.70) Hemoglobin 11.7 g/dL (13.0-17.5) Hematocrit 34.5 % (39.0-53.0) Mean Corpuscular Volume 88 fL (79-100) Mean Corpuscular Hemoglobin 30 pg (25-35) Mean Corpuscular Hemoglobin Concent 34 g/dL (31-37) Red Cell Distribution Width 13.0 % (11.5-14.5) Platelet Count 255 x10^3/uL (140-400) Neutrophils (%) (Auto) 54 % (31-73) Lymphocytes (%) (Auto) 19 % (24-48) Monocytes (%) (Auto) 22 % (0-9) Eosinophils (%) (Auto) 5 % (0-3) Basophils (%) (Auto) 0 % (0-3) Neutrophils # (Auto) 4.3 x10^3/uL (1.8-7.7) Lymphocytes # (Auto) 1.5 x10^3/uL (1.0-4.8) Monocytes # (Auto) 1.7 x10^3/uL (0.0-1.1) Eosinophils # (Auto) 0.4 x10^3/uL (0.0-0.7) Basophils # (Auto) 0.0 x10^3/uL (0.0-0.2) Sodium Level 139 mmol/L (136-145) Potassium Level 3.9 mmol/L (3.5-5.1) Chloride Level 102 mmol/L (98-107) Carbon Dioxide Level 25 mmol/L (21-32) Anion Gap 12 (6-14) Blood Urea Nitrogen 20 mg/dL (8-26) Creatinine 0.9 mg/dL (0.7-1.3) Estimated GFR (Cockcroft-Gault) 107.6 Glucose Level 94 mg/dL (70-99) Calcium Level 8.7 mg/dL (8.5-10.1) Ionized Calcium 1.18 mmol/L (1.13-1.32) Phosphorus Level 4.3 mg/dL (2.6-4.7) Magnesium Level 2.2 mg/dL (1.8-2.4) Total Bilirubin 0.7 mg/dL (0.2-1.0) Direct Bilirubin 0.3 mg/dL (0.0-0.2) Gamma Glutamyl Transpeptidase 150 U/L (10-85) Aspartate Amino Transf (AST/SGOT) 56 U/L (15-37) Alanine Aminotransferase (ALT/SGPT) 110 U/L (16-63) Alkaline Phosphatase 76 U/L (46-116) Lactate Dehydrogenase 272 U/L (85-227) Total Protein 6.4 g/dL (6.4-8.2) Albumin 2.5 g/dL (3.4-5.0) Amylase Level 172 U/L (25-115) Lipase 550 U/L (73-393) Comments CT head - 08/04/2019 IMPRESSION: 1. No acute intracranial abnormality. 2. Paranasal sinus disease. Left maxillary sinus air-fluid level suggests acute sinusitis. CXR-- 08/05/2019 IMPRESSION: 1. Bilateral airspace opacities with satisfactory endotracheal intubation, ET tube terminating 4.8 cm above the mkie. Enteric tube also appears in good position in the gastric fundus. Impression . IMPRESSION: 1. Acute hypoxic respiratory failure secondary to respiratory arrest from drug overdose and highly suspected aspiration pneumonia/ ALI/ARDS with severe hypoxia. 2. Drug overdose including cocaine, marijuana and Xanax. 3. Anoxic toxic encephalopathy 4. Possible aspiration pneumonia 5. Decreased urine output and acute kidney injury--improving 6. Shock. Status post fluid resuscitation. 7. ct head with no major events Plan . We will continue current support, Nutritional support. Empiric antibiotics Follow neurology input Ultimately will require a PEG and trach Total cumulative critical care time of 35 minutes, reviewing data, labs, chest x-ray, and formulating a plan KASHIF DEXTER MD August 10, 2019 14:53
[2019-08-10 15:05] LABS: RBC,URINE TNTC /HPF (0-2)
[2019-08-10 15:06] LABS: AMORPHOUS SEDIMENT,UR PRESENT /HPF; BACTERIA,URINE FEW /HPF (0-FEW); SQUAMOUS EPITHELIAL CELL,UR OCC /LPF
[2019-08-10 15:56] LABS: BASE EXCESS ABG -2 mmol/L (-3-3); FIO2 ABG 40%; HCO3 ABG 23 mmol/L (21-28); PCO2 ABG 41 mmHg (35-46); PO2 ABG 91 mmHg (85-108); SAT O2 ABG 96 % (92-99)
[2019-08-10] MEDS ORDERED: fentaNYL PF VIAL 100 MCG/2 ML VIAL IVP PRN (16:45)
[2019-08-10] MEDS ORDERED: MORPHINE SULFATE 4 MG/ML VIAL. IV PRN (17:00)
[2019-08-10] MEDS: MORPHINE SULFATE 10 MG/ML VIAL. IV PRN ×9 (19:32→21:39)
--- NOTE | 2019-08-10 19:35 | NUR ---
Pt to PACU with family for withdrawl of care at 1925.
--- NOTE | 2019-08-10 19:45 | NUR ---
Pt extubated to room air at this time. Pt premedicated with morphine and ativan as ordered.
--- NOTE | 2019-08-10 23:00 | NUR ---
transfered from [facility] accompanied by nurse and father and step mom pt unresponsive pt DNR
[2019-08-11 03:07] VITALS: BP 141/66
[2019-08-11 07:59] VITALS: BP 135/68
--- NOTE | 2019-08-11 08:01 | NUR ---
This AM pt is awake with eyes open and blinking, but they don't seem to be focusing or aware. Parents at bedside with pt.
--- NOTE | 2019-08-11 08:21 | RAD ---
PORTABLE CHEST 1V INDICATION: Respiratory failure. COMPARISON STUDY: 08/10/2019. FINDINGS: Life Support Devices: Endotracheal and enteric tubes are no longer visualized. Stable right IJ central venous catheter. Lungs: Normal lung volume. Slightly increased right perihilar and bibasilar opacities. Normal pulmonary vasculature. Pleura: No pleural effusion or pneumothorax. Heart and Mediastinum: Stable cardiomediastinal silhouette and great vessels. Bones and Soft Tissues: Stable regional skeleton and soft tissues. IMPRESSION: 1. Slightly increased right perihilar and bibasilar opacities. 2. Life support devices as above. Electronically signed by: Fabrizio Clay MD (08/11/2019 8:18 AM) [id number]
--- NOTE | 2019-08-11 11:00 | PDOC ---
PULMONARY PROGRESS NOTES Subjective Extubated, on room air, opens eyes doesn't respond Vitals Vital Signs Date Time Temp Pulse Resp B/P (MAP) Pulse Ox O2 Delivery O2 Flow Rate FiO2 08/11/19 07:59 98.6 99 22 135/68 (90) 87 Room Air 98.6 Lungs: Clear Cardiovascular: S1 Abdomen: Soft Extremities: No Edema Skin: Warm Labs Laboratory Tests Test 08/09/19 12:42 08/10/19 00:27 08/10/19 03:30 08/10/19 05:35 Glucose (Fingerstick) 122 mg/dL (70-99) 133 mg/dL (70-99) 93 mg/dL (70-99) O2 Saturation 96 % (92-99) Arterial Blood pH 7.37 (7.35-7.45) Arterial Blood pCO2 at Patient Temp 41 mmHg (35-46) Arterial Blood pO2 at Patient Temp 91 mmHg (85-108) Arterial Blood HCO3 23 mmol/L (21-28) Arterial Blood Base Excess -2 mmol/L (-3-3) FiO2 40% Test 08/10/19 05:45 08/10/19 07:45 08/10/19 14:00 08/10/19 18:15 White Blood Count 7.9 x10^3/uL (4.0-11.0) 7.9 x10^3/uL (4.0-11.0) Red Blood Count 3.85 x10^6/uL (4.30-5.70) 3.90 x10^6/uL (4.30-5.70) Hemoglobin 11.5 g/dL (13.0-17.5) 11.7 g/dL (13.0-17.5) Hematocrit 34.3 % (39.0-53.0) 34.5 % (39.0-53.0) Mean Corpuscular Volume 89 fL (79-100) 88 fL (79-100) Mean Corpuscular Hemoglobin 30 pg (25-35) 30 pg (25-35) Mean Corpuscular Hemoglobin Concent 34 g/dL (31-37) 34 g/dL (31-37) Red Cell Distribution Width 13.1 % (11.5-14.5) 13.0 % (11.5-14.5) Platelet Count 224 x10^3/uL (140-400) 255 x10^3/uL (140-400) Neutrophils (%) (Auto) 55 % (31-73) 54 % (31-73) Lymphocytes (%) (Auto) 19 % (24-48) 19 % (24-48) Monocytes (%) (Auto) 22 % (0-9) 22 % (0-9) Eosinophils (%) (Auto) 4 % (0-3) 5 % (0-3) Basophils (%) (Auto) 1 % (0-3) 0 % (0-3) Neutrophils # (Auto) 4.3 x10^3/uL (1.8-7.7) 4.3 x10^3/uL (1.8-7.7) Lymphocytes # (Auto) 1.5 x10^3/uL (1.0-4.8) 1.5 x10^3/uL (1.0-4.8) Monocytes # (Auto) 1.7 x10^3/uL (0.0-1.1) 1.7 x10^3/uL (0.0-1.1) Eosinophils # (Auto) 0.3 x10^3/uL (0.0-0.7) 0.4 x10^3/uL (0.0-0.7) Basophils # (Auto) 0.0 x10^3/uL (0.0-0.2) 0.0 x10^3/uL (0.0-0.2) Sodium Level 138 mmol/L (136-145) 139 mmol/L (136-145) Potassium Level 4.1 mmol/L (3.5-5.1) 3.9 mmol/L (3.5-5.1) Chloride Level 104 mmol/L (98-107) 102 mmol/L (98-107) Carbon Dioxide Level 27 mmol/L (21-32) 25 mmol/L (21-32) Anion Gap 7 (6-14) 12 (6-14) Blood Urea Nitrogen 22 mg/dL (8-26) 20 mg/dL (8-26) Creatinine 0.9 mg/dL (0.7-1.3) 0.9 mg/dL (0.7-1.3) Estimated GFR (Cockcroft-Gault) 107.6 107.6 Glucose Level 89 mg/dL (70-99) 94 mg/dL (70-99) Calcium Level 9.0 mg/dL (8.5-10.1) 8.7 mg/dL (8.5-10.1) O2 Saturation 97 % (92-99) Arterial Blood pH 7.43 (7.35-7.45) Arterial Blood pCO2 at Patient Temp 40 mmHg (35-46) Arterial Blood pO2 at Patient Temp 91 mmHg (85-108) Arterial Blood HCO3 26 mmol/L (21-28) Arterial Blood Base Excess 2 mmol/L (-3-3) FiO2 50% Prothrombin Time 14.0 SEC (11.7-14.0) Prothromb Time International Ratio 1.1 (0.8-1.1) Activated Partial Thromboplast Time 31 SEC (24-38) Fibrinogen 889 mg/dL (200-440) Urine Collection Type Unknown Urine Color Yellow Urine Clarity Turbid Urine pH 7.0 (<5.0-8.0) Urine Specific [place] >=1.030 (1.000-1.030) Urine Protein Negative mg/dL (NEG-TRACE) Urine Glucose (UA) Negative mg/dL (NEG) Urine Ketones (Stick) Negative mg/dL (NEG) Urine Blood Large (NEG) Urine Nitrite Negative (NEG) Urine Bilirubin Negative (NEG) Urine Urobilinogen Dipstick 0.2 mg/dL (0.2 mg/dL) Urine Leukocyte Esterase Negative (NEG) Urine RBC Tntc /HPF (0-2) Urine WBC 1-4 /HPF (0-4) Urine Squamous Epithelial Cells Occ /LPF Urine Amorphous Sediment Present /HPF Urine Bacteria Few /HPF (0-FEW) Ionized Calcium 1.18 mmol/L (1.13-1.32) Phosphorus Level 4.3 mg/dL (2.6-4.7) Magnesium Level 2.2 mg/dL (1.8-2.4) Total Bilirubin 0.7 mg/dL (0.2-1.0) Direct Bilirubin 0.3 mg/dL (0.0-0.2) Gamma Glutamyl Transpeptidase 150 U/L (10-85) Aspartate Amino Transf (AST/SGOT) 56 U/L (15-37) Alanine Aminotransferase (ALT/SGPT) 110 U/L (16-63) Alkaline Phosphatase 76 U/L (46-116) Lactate Dehydrogenase 272 U/L (85-227) Total Protein 6.4 g/dL (6.4-8.2) Albumin 2.5 g/dL (3.4-5.0) Amylase Level 172 U/L (25-115) Lipase 550 U/L (73-393) Glucose (Fingerstick) 107 mg/dL (70-99) Laboratory Tests Test 08/10/19 14:00 08/10/19 18:15 White Blood Count 7.9 x10^3/uL (4.0-11.0) Red Blood Count 3.90 x10^6/uL (4.30-5.70) Hemoglobin 11.7 g/dL (13.0-17.5) Hematocrit 34.5 % (39.0-53.0) Mean Corpuscular Volume 88 fL (79-100) Mean Corpuscular Hemoglobin 30 pg (25-35) Mean Corpuscular Hemoglobin Concent 34 g/dL (31-37) Red Cell Distribution Width 13.0 % (11.5-14.5) Platelet Count 255 x10^3/uL (140-400) Neutrophils (%) (Auto) 54 % (31-73) Lymphocytes (%) (Auto) 19 % (24-48) Monocytes (%) (Auto) 22 % (0-9) Eosinophils (%) (Auto) 5 % (0-3) Basophils (%) (Auto) 0 % (0-3) Neutrophils # (Auto) 4.3 x10^3/uL (1.8-7.7) Lymphocytes # (Auto) 1.5 x10^3/uL (1.0-4.8) Monocytes # (Auto) 1.7 x10^3/uL (0.0-1.1) Eosinophils # (Auto) 0.4 x10^3/uL (0.0-0.7) Basophils # (Auto) 0.0 x10^3/uL (0.0-0.2) Prothrombin Time 14.0 SEC (11.7-14.0) Prothromb Time International Ratio 1.1 (0.8-1.1) Activated Partial Thromboplast Time 31 SEC (24-38) Fibrinogen 889 mg/dL (200-440) Urine Collection Type Unknown Urine Color Yellow Urine Clarity Turbid Urine pH 7.0 (<5.0-8.0) Urine Specific [place] >=1.030 (1.000-1.030) Urine Protein Negative mg/dL (NEG-TRACE) Urine Glucose (UA) Negative mg/dL (NEG) Urine Ketones (Stick) Negative mg/dL (NEG) Urine Blood Large (NEG) Urine Nitrite Negative (NEG) Urine Bilirubin Negative (NEG) Urine Urobilinogen Dipstick 0.2 mg/dL (0.2 mg/dL) Urine Leukocyte Esterase Negative (NEG) Urine RBC Tntc /HPF (0-2) Urine WBC 1-4 /HPF (0-4) Urine Squamous Epithelial Cells Occ /LPF Urine Amorphous Sediment Present /HPF Urine Bacteria Few /HPF (0-FEW) Sodium Level 139 mmol/L (136-145) Potassium Level 3.9 mmol/L (3.5-5.1) Chloride Level 102 mmol/L (98-107) Carbon Dioxide Level 25 mmol/L (21-32) Anion Gap 12 (6-14) Blood Urea Nitrogen 20 mg/dL (8-26) Creatinine 0.9 mg/dL (0.7-1.3) Estimated GFR (Cockcroft-Gault) 107.6 Glucose Level 94 mg/dL (70-99) Calcium Level 8.7 mg/dL (8.5-10.1) Ionized Calcium 1.18 mmol/L (1.13-1.32) Phosphorus Level 4.3 mg/dL (2.6-4.7) Magnesium Level 2.2 mg/dL (1.8-2.4) Total Bilirubin 0.7 mg/dL (0.2-1.0) Direct Bilirubin 0.3 mg/dL (0.0-0.2) Gamma Glutamyl Transpeptidase 150 U/L (10-85) Aspartate Amino Transf (AST/SGOT) 56 U/L (15-37) Alanine Aminotransferase (ALT/SGPT) 110 U/L (16-63) Alkaline Phosphatase 76 U/L (46-116) Lactate Dehydrogenase 272 U/L (85-227) Total Protein 6.4 g/dL (6.4-8.2) Albumin 2.5 g/dL (3.4-5.0) Amylase Level 172 U/L (25-115) Lipase 550 U/L (73-393) Glucose (Fingerstick) 107 mg/dL (70-99) Comments CT head - 08/04/2019 IMPRESSION: 1. No acute intracranial abnormality. 2. Paranasal sinus disease. Left maxillary sinus air-fluid level suggests acute sinusitis. CXR-- 08/05/2019 IMPRESSION: 1. Bilateral airspace opacities with satisfactory endotracheal intubation, ET tube terminating 4.8 cm above the mike. Enteric tube also appears in good position in the gastric fundus. Impression . IMPRESSION: 1. Acute hypoxic respiratory failure secondary to respiratory arrest from drug overdose and highly suspected aspiration pneumonia/ ALI/ARDS with severe hypoxia. 2. Drug overdose including cocaine, marijuana and Xanax. 3. Anoxic toxic encephalopathy 4. Possible aspiration pneumonia 5. Decreased urine output and acute kidney injury--improving 6. Shock. Status post fluid resuscitation. 7. ct head with no major events Plan . on room air Discussed with family and will start morphine gtt, family doesn't want and aggressive treatment and wants to proceed with comfort care measures. Comfort care measures only D/W RN and Dr. Link CODE: DNKASHIF PUENTES MD August 11, 2019 10:59
--- NOTE | 2019-08-11 11:20 | PN ---
DATE: 08/11/2019 SUBJECTIVE: The patient is a 19-year-old male patient, who overdosed on Xanax, cocaine and marijuana and sustained severe acute hypoxic respiratory failure secondary to respiratory arrest from drug overdose with superimposed aspiration pneumonia, acute lung injury and ARDS. The family decided withdrawal of support for organ donation and that if he after extubation, the organs would be harvested; however, he continued to do well, breathing spontaneously. He is unresponsive, although his vital signs are stable. He is maintaining his oxygen saturation at 87% on room air. PHYSICAL EXAMINATION: HEAD, EYES, EARS, NOSE AND THROAT: Normocephalic, atraumatic. NECK: Supple. He has a triple-lumen catheter on the right side of the neck. HEART: Showed normal first and second sounds. No gallop or murmur. CHEST: Showed central trachea, equal bilateral chest expansion and air entry, vesicular breath sounds. No crepitation or rhonchi. ABDOMEN: Distended, soft, nontender. NEUROLOGIC: He is encephalopathic. LABORATORY DATA: His lab work as of yesterday showed a white cell count of 7900, hemoglobin 12, hematocrit 35, MCV 88 and platelet count 255,000. His serum sodium was 139, potassium 3.9, chloride 102, bicarbonate 25, anion gap of 12, BUN 20, creatinine 0.9, estimated GFR was 170 mL per minute, his glucose was 107, calcium was 8.7, phosphorus 4.3, magnesium was 2.2. Total bilirubin, AST and ALT are slightly elevated, but are improving. Total protein was 6.4. Albumin was 2.5. His amylase and lipase were slightly elevated. ASSESSMENT: The patient is status post extubation and withdrawal of life support. Unfortunately, the patient continues to be unresponsive due to both anoxic and hypoxic encephalopathy. He has overdosed on cocaine, marijuana and Xanax. His hypernatremia and hypokalemia resolved. His EEG showed that he has an alpha coma. PLAN: The family were asking where from here; and unfortunately, the patient has not . So, he probably going to end up in a vegetative state unless he develops some complication like pneumonia infection. RACHEL PAYNE MD DR: EDITH/chauncey JOB#: [id number] / [id number]
[2019-08-11] MEDS: MORPHINE SULFATE 10 MG/ML VIAL. IV PRN (11:48)
[2019-08-11] MEDS: MORPHINE SULFATE/PF 30 ML IV PRN ×2 (12:00→20:36)
[2019-08-11 19:00] VITALS: BP 138/75
--- NOTE | 2019-08-12 00:15 | NUR ---
This RN entered room to assist with patient. Patient was experiencing seizure and had decerebrate posturing at the time. Patient was biting down on tongue causing laceration on tongue. Patient suctioned at this time. Patient HR was 130-150. Seizure lasted several minutes. Family at bedside during seizure. Patient was adjusted in bed at this time. RN will continue to monitor the patient.
[2019-08-12] MEDS: MORPHINE SULFATE 10 MG/ML VIAL. IV PRN ×3 (00:54→08:53)
[2019-08-12] MEDS: MORPHINE SULFATE/PF 30 ML IV PRN ×6 (02:34→22:50)
--- NOTE | 2019-08-12 02:44 | NUR ---
Patient experiencing another seizure, lasting several minutes, patient was in decorticate posture during seizure. Patient experiencing labored breathing, face was pale and patient snorting during seizure. This RN assisted in helping with care for the patient at this time. Patient was suctioned. Administered 4 mg of ativan to patient, also administered 6 mg of morphine to patient. Doses verified by this RN and SHARON Aburto. Bolus dose given thru INSURANCE CLAIMS SUPERVISOR pump, ativan give thru IJ IV. RN will continue to monitor the patient. Addendum: 08/12/19 at 0252 by MARIANNE RAM RN RN Patient experienced seizure at 0055 hours.
--- NOTE | 2019-08-12 02:52 | NUR ---
Patient experiencing seizure at 0225 hours, patient is in decerebrate posture at time of seizure, family is still at bed side. At family's request 4mg of ativan was administered thru IJ IV and another 6 mg of morphine was given bolus thru the MECHANICAL FIELD ENGINEER pump. Patient was not pale during seizure, breathing not as labored as previous seizure. After administering medications patient became calm and relaxed. Seizure lasted several minutes just like previous seizures. RN will continue to monitor the patient at this time.
[2019-08-12 07:59] VITALS: BP 132/76
[2019-08-12] MEDS ORDERED: MIDAZOLAM 100mg/100ml NS BAG 100 ML IV PRN (09:15)
--- NOTE | 2019-08-12 09:50 | PDOC ---
PULMONARY PROGRESS NOTES Subjective Extubated, on room air, opens eyes doesn't respond nursing report seizure activity and frequent posturing Family at bedside Vitals Vital Signs Date Time Temp Pulse Resp B/P (MAP) Pulse Ox O2 Delivery O2 Flow Rate FiO2 08/12/19 08:53 22 Room Air 08/12/19 02:34 89 08/11/19 19:00 97.6 88 138/75 (96) 97.6 Lungs: Clear Cardiovascular: S1 Abdomen: Soft Extremities: No Edema Skin: Warm Labs Laboratory Tests Test 08/10/19 14:00 08/10/19 18:15 White Blood Count 7.9 x10^3/uL (4.0-11.0) Red Blood Count 3.90 x10^6/uL (4.30-5.70) Hemoglobin 11.7 g/dL (13.0-17.5) Hematocrit 34.5 % (39.0-53.0) Mean Corpuscular Volume 88 fL (79-100) Mean Corpuscular Hemoglobin 30 pg (25-35) Mean Corpuscular Hemoglobin Concent 34 g/dL (31-37) Red Cell Distribution Width 13.0 % (11.5-14.5) Platelet Count 255 x10^3/uL (140-400) Neutrophils (%) (Auto) 54 % (31-73) Lymphocytes (%) (Auto) 19 % (24-48) Monocytes (%) (Auto) 22 % (0-9) Eosinophils (%) (Auto) 5 % (0-3) Basophils (%) (Auto) 0 % (0-3) Neutrophils # (Auto) 4.3 x10^3/uL (1.8-7.7) Lymphocytes # (Auto) 1.5 x10^3/uL (1.0-4.8) Monocytes # (Auto) 1.7 x10^3/uL (0.0-1.1) Eosinophils # (Auto) 0.4 x10^3/uL (0.0-0.7) Basophils # (Auto) 0.0 x10^3/uL (0.0-0.2) Prothrombin Time 14.0 SEC (11.7-14.0) Prothromb Time International Ratio 1.1 (0.8-1.1) Activated Partial Thromboplast Time 31 SEC (24-38) Fibrinogen 889 mg/dL (200-440) Urine Collection Type Unknown Urine Color Yellow Urine Clarity Turbid Urine pH 7.0 (<5.0-8.0) Urine Specific [place] >=1.030 (1.000-1.030) Urine Protein Negative mg/dL (NEG-TRACE) Urine Glucose (UA) Negative mg/dL (NEG) Urine Ketones (Stick) Negative mg/dL (NEG) Urine Blood Large (NEG) Urine Nitrite Negative (NEG) Urine Bilirubin Negative (NEG) Urine Urobilinogen Dipstick 0.2 mg/dL (0.2 mg/dL) Urine Leukocyte Esterase Negative (NEG) Urine RBC Tntc /HPF (0-2) Urine WBC 1-4 /HPF (0-4) Urine Squamous Epithelial Cells Occ /LPF Urine Amorphous Sediment Present /HPF Urine Bacteria Few /HPF (0-FEW) Sodium Level 139 mmol/L (136-145) Potassium Level 3.9 mmol/L (3.5-5.1) Chloride Level 102 mmol/L (98-107) Carbon Dioxide Level 25 mmol/L (21-32) Anion Gap 12 (6-14) Blood Urea Nitrogen 20 mg/dL (8-26) Creatinine 0.9 mg/dL (0.7-1.3) Estimated GFR (Cockcroft-Gault) 107.6 Glucose Level 94 mg/dL (70-99) Calcium Level 8.7 mg/dL (8.5-10.1) Ionized Calcium 1.18 mmol/L (1.13-1.32) Phosphorus Level 4.3 mg/dL (2.6-4.7) Magnesium Level 2.2 mg/dL (1.8-2.4) Total Bilirubin 0.7 mg/dL (0.2-1.0) Direct Bilirubin 0.3 mg/dL (0.0-0.2) Gamma Glutamyl Transpeptidase 150 U/L (10-85) Aspartate Amino Transf (AST/SGOT) 56 U/L (15-37) Alanine Aminotransferase (ALT/SGPT) 110 U/L (16-63) Alkaline Phosphatase 76 U/L (46-116) Lactate Dehydrogenase 272 U/L (85-227) Total Protein 6.4 g/dL (6.4-8.2) Albumin 2.5 g/dL (3.4-5.0) Amylase Level 172 U/L (25-115) Lipase 550 U/L (73-393) Glucose (Fingerstick) 107 mg/dL (70-99) Comments CT head - 08/04/2019 IMPRESSION: 1. No acute intracranial abnormality. 2. Paranasal sinus disease. Left maxillary sinus air-fluid level suggests acute sinusitis. CXR-- 08/05/2019 IMPRESSION: 1. Bilateral airspace opacities with satisfactory endotracheal intubation, ET tube terminating 4.8 cm above the mike. Enteric tube also appears in good position in the gastric fundus. Impression . IMPRESSION: 1. Acute hypoxic respiratory failure secondary to respiratory arrest from drug overdose and highly suspected aspiration pneumonia/ ALI/ARDS with severe hypoxia. 2. Drug overdose including cocaine, marijuana and Xanax. 3. Anoxic toxic encephalopathy 4. Possible aspiration pneumonia 5. Decreased urine output and acute kidney injury--improving 6. Shock. Status post fluid resuscitation. 7. ct head with no major events Plan . on room air continue morphine gtt, will add low dose versed gtt Comfort care measures only D/W RN and Dr. Link discussed with father and step-mother at bedside CODE: DNR KASHIF DEXTER MD August 12, 2019 09:49
--- NOTE | 2019-08-12 10:37 | NUR ---
Summary Tuesday08/12/19. Patient had multiple posturing, seizure like activities during the night and this am. Pushpa GALE increased the morphine drip to 10mg/hr and called pharmacy to allow the PRN bolus dosing to remain available for the nurse to give. (BULL FIDDLE PLAYER pump will not allow bolus dosing when basal rate is set to 10mg/hr. Two 4mg doses of ativan IV were given this am and three 3mg morphine bolus doses, plus one additional 10mg bolus morphine dose all to control seizure-like activity. Dr Silva added a versed drip at 1mg/hr, that we may titrate up to 2mg/hr. Pt's father and step-mom continue at bedside with the plan to switch out with pt's mother and step dad. The dad states that they are all in agreement with treatment plan. There is no legal DPOA filed due to pt's young age, but both parents state that they agree with either one of them making decisions, if necessary.
--- NOTE | 2019-08-12 12:06 | PN ---
DATE: 08/12/2019 SUBJECTIVE: The patient is a 19-year-old male patient who overdosed on Xanax, cocaine and marijuana sustained respiratory arrest and severe hypoxemia aggravated obviously by aspiration pneumonia. He was extubated with a plan to harvest his organs. Unfortunately, he did not pass away, however, he continued to be unresponsive. He does not open his eyes spontaneously and the nursing staff reported seizure activity and frequent posturing and the family has made up their mind yesterday to start palliative care and was started on morphine drip and he was seen today by Dr. Silva who started him also on Versed drip. PHYSICAL EXAMINATION: GENERAL: When I saw him this morning, he was resting, propped up, clearly tachypneic, but no pallor, jaundice, cyanosis or thyromegaly. No jugular venous distension. no lower edema. VITAL SIGNS: His heart rate was 136, blood pressure was 132/76, temperature was 100, respiratory rate was 32 and oxygen saturation was 94%. HEAD, EYES, EARS, NOSE AND THROAT: Showed normocephalic, atraumatic. NECK: Supple. CARDIAC: Normal first and second heart sounds. No gallop, rub or murmur. CHEST: Showed central trachea, equal bilateral expansion. NEUROLOGIC: He has severe anoxic encephalopathy. ASSESSMENT: 1. Acute hypoxic respiratory failure secondary to respiratory arrest from drug overdose and highly suspected aspiration pneumonia, acute lung injury/acute respiratory distress syndrome with severe hypoxemia. 2. Drug overdose including cocaine, marijuana, and Xanax. 3. Anoxic/toxic encephalopathy. 4. Acute kidney injury has improved. PLAN: His code status was changed to DNR/DNI. I plan to continue with morphine drip as well Versed drip. RACHEL PAYNE MD DR: EDITH/chauncey JOB#: [id number] / [id number]
[2019-08-12 19:00] VITALS: BP 130/77
[2019-08-13] MEDS: MORPHINE SULFATE/PF 30 ML IV PRN ×4 (01:55→11:27)
[2019-08-13 07:50] VITALS: BP 120/49
[2019-08-13] MEDS ORDERED: ACETAMINOPHEN 650 MG SUPP.RECT. PR PRN (10:30)
--- NOTE | 2019-08-13 10:35 | NUR ---
TALHA following. Discussed with Dr. Link, pt comfort care measures, family in agreement. Plan for possible inpatient hospice referral tomorrow (08/14/2019), if pt does not pass today. TALHA will continue to follow. Addendum: 08/13/19 at 1149 by BECKY PALENCIA Family requesting inpatient hospice today. TALHA met with pt's family at bedside (no isolation precautions at the time), they are agreeable to [facility] inpatient hospice. TALHA phoned and faxed referral to [facility]. Awaiting acceptance decision. TALHA will continue to follow. Dr. Link and SHARON aware. Addendum: 08/13/19 at 1514 by BCEKY PALENCIA Family decided they did not need inpatient hospice as pt is already on comfort care. SHARON notified.
--- NOTE | 2019-08-13 10:44 | PN ---
DATE: 08/13/2019 SUBJECTIVE: The patient continued to be on palliative care. He is on morphine and Versed drip, and required Ativan last night as he was somewhat agitated. OBJECTIVE: GENERAL: On examining him, he is resting up clearly and mildly tachypneic, tachycardic and febrile. VITAL SIGNS: His heart rate was 144, blood pressure was 120/49, temperature was 103.2, respiratory rate was 22 and oxygen saturation was 70% on room air. HEAD, EYES, EARS, NOSE AND THROAT: Showed normocephalic, atraumatic. NECK: Supple. HEART: Showed normal first and second heart sounds with no gallop, rub or murmur. CHEST: Showed central trachea, equal bilateral chest expansion, air entry, vesicular sounds. No crepitation or rhonchi. ABDOMEN: Distended, soft, nontender. NEUROLOGIC: He is unresponsive with severe anoxic encephalopathy. His intake is incompletely recorded, output was 3150. LABORATORY DATA: No further lab works were done. ASSESSMENT: 1. Acute hypoxic respiratory failure secondary to respiratory arrest from the overdose and aspiration pneumonia, acute lung injury as well as acute respiratory distress syndrome and severe hypoxemia. 2. Drug overdose including cocaine, marijuana and Xanax. 3. Anoxic/toxic encephalopathy. 4. Acute kidney injury that has improved. PLAN: His code status was changed to DNR/DNI. He is to continue with palliative care and comfort care for end of life care. RACHEL PAYNE MD DR: EDITH/chauncey JOB#: [id number] / [id number]
[2019-08-13] MEDS ORDERED: MORPHINE HIGH DOSE PCA 50 ML IV PRN ×2 (12:00→14:00)
--- NOTE | 2019-08-13 15:29 | NUR ---
Morphine dose was increased this afternoon by Dr Link to give 12mg/hr instead of 10 for comfort measures- family aware. Pharmacy had to make/mix a high dose syringe for the patient so it could be done thru his RIVET CATCHER properly. Versed dose was also increased by Dr Link this afternoon from 1mg/hr to 2mg/hr which was changed at 1128 on the pump- family aware. Hospice came to see family today and family denied them seeing the patient at this time. Patients Dad and step mom have been at bedside during my shift so far today. Dr Horvath gave a verbal order to this nurse earlier to check on COVID testing for the patient. Patient was previously tested on 08/10/2019 which was negative. Per the approval process for testing, Dr Silva was called and notified/asked about COVID testing on the patient. He stated that if the patient has to been moved to the COVID floor he does not want the patient tested at this time since he was already tested and his symptoms have not changed since Dr Silva started following him a couple days ago. Nurse oil field equipment mechanic supervisor notified- Ravi Boyle notified as well. We will not be testing the patient again at this time.
--- NOTE | 2019-08-13 16:52 | PDOC ---
PROGRESS NOTES Assessment Assessment IMPRESSION: Hypoxia/anoxia barin injury and encephalopathy. Respiratory failure. S/p cardiac arrest downtime estimated 15 minutes. PEA. Fever, 103. 2 degree. Pneumonia. Hepatic injurt. Hx of drug use/abuse. RECOMMENDATIONS/PLAN: Palliative care per family. Suggest repeat Covid 19 test, discussed with his nurse, but not approved per policy. Discussed with his father and step mother at bedside on 08/13/19. SUBJECTIVE: Unresponsiveness. OBJECTIVE: Unresponsiveness. Past Medical History Cardiovascular: No pertinent hx CENTRAL NERVOUS SYSTEM: Other (No pertinent history) Past Surgical History No pertinent history Family History Non contributory to his condition. Social History Reportedly use/abuse drugs. His friend has related to drug use/abuse. Allergies No Known Drug Allergies (Unverified , 08/05/19), Per Mother, NKDA ROS Unobtainable MEDICATIONS: Refer to [facility] PHYSICAL EXAMINATION: General appearance in unresponsiveness state. HEENT: Normocephalic and nontraumatic. Eyes, nose, ears, and throat are unremarkable. Neck is supple. No lymphadenopathy. Cardiovascular: S1, S2 Pulmonary: Laboring breathing. Abdomen: Bowel sounds are weak. Extremities: No lesions. NEUROLOGICAL EXAMINATION: Unresponsiveness. Not oriented to time, place and person. Pupils 1-2 mm, not reactive to light stimuli. EOMI not elicted. CN: no focal findings. Muscle tone: Decreased. Muscle strength: No movements to pain stimuli. DTR: 0 Plantar reflex: No response bilaterally Gait: not able to walk. Sensory exam: no response to pain stimuli. Not able to access cerebellar signs. F-T-N test not performed due to unresponsiveness. Objective Objective Vital Signs Date Time Temp Pulse Resp B/P (MAP) Pulse Ox O2 Delivery O2 Flow Rate FiO2 08/13/19 15:14 70 Room Air 08/13/19 07:50 103.2 144 22 120/49 (72) 103.2 Intake and Output 08/13/19 06:59 Intake Total 120 ml Output Total 2050 ml Balance -1930 ml Intake Oral 0 ml IV Total 120 ml Output Urine Total 2050 ml Vitals Signs Vitals VS - Last 72 Hours, by Label Date Time Temp Pulse Resp B/P (MAP) Pulse Ox O2 Delivery O2 Flow Rate FiO2 08/13/19 15:14 70 Room Air 08/13/19 14:44 70 Room Air 08/13/19 11:57 70 Room Air 08/13/19 11:27 70 Room Air 08/13/19 08:47 70 Room Air 08/13/19 08:17 70 Room Air 08/13/19 08:15 Room Air 08/13/19 07:50 103.2 144 22 120/49 (72) 77 Room Air 103.2 08/13/19 01:55 70 Room Air 08/12/19 22:50 61 Room Air 08/12/19 20:00 Room Air 08/12/19 19:43 61 Room Air 08/12/19 19:00 98.2 145 20 130/77 (94) 61 Room Air 98.2 08/12/19 16:48 16 61 Room Air 08/12/19 16:18 94 Room Air 08/12/19 12:29 16 Room Air 08/12/19 11:59 12 Room Air 08/12/19 09:23 16 Room Air 08/12/19 09:23 16 Room Air 08/12/19 08:53 22 Room Air 08/12/19 08:00 Mechanical Ventilator 08/12/19 07:59 100.0 136 32 132/76 (94) 94 Room Air 100.0 Laboratory Laboratory Microbiology 08/10/19 - Final, Resulted 08/10/19 - Final, Resulted 08/10/19 - Final, Resulted 08/10/19 - Preliminary, Resulted 08/10/19 - Preliminary, Resulted 08/10/19 - Preliminary, Resulted 08/10/19 Gram Stain Evaluation - Final, Resulted 08/10/19 Sputum Culture, Resulted Pending 08/10/19 Blood Culture - Preliminary, Resulted NO GROWTH AFTER 3 DAYS Medication Medications Current Medications Acetaminophen (Tylenol Supp) 650 mg PRN Q4HRS PRN MD MILD PAIN / TEMP > 100.3'F; Start 08/13/19 at 10:30 Morphine Sulfate 50 ml @ 0 mls/hr CONT PRN IV . Last administered on 08/13/19at 14:44; Start 08/13/19 at 12:00 Morphine Sulfate 50 ml @ 0 mls/hr CONT PRN IV .; Start 08/13/19 at 14:00; Stop 08/13/19 at 11:47; Status DC Comment Review of Relevant I have reviewed the following items giorgi (where applicable) has been applied. ANNETTE GARDUNO MD August 13, 2019 16:52
--- NOTE | 2019-08-13 16:58 | PDOC ---
PULMONARY PROGRESS NOTES Subjective Family at the bedside, father, and stepmother Patient now on morphine and Versed drip appears less dyspneic than yesterday Vitals Vital Signs Date Time Temp Pulse Resp B/P (MAP) Pulse Ox O2 Delivery O2 Flow Rate FiO2 08/13/19 15:14 70 Room Air 08/13/19 07:50 103.2 144 22 120/49 (72) 103.[address] head - 08/04/2019 IMPRESSION: 1. No acute intracranial abnormality. 2. Paranasal sinus disease. Left maxillary sinus air-fluid level suggests acute sinusitis. CXR-- 08/05/2019 IMPRESSION: 1. Bilateral airspace opacities with satisfactory endotracheal intubation, ET tube terminating 4.8 cm above the mike. Enteric tube also appears in good position in the gastric fundus. Impression . IMPRESSION: 1. Acute hypoxic respiratory failure secondary to respiratory arrest from drug overdose and highly suspected aspiration pneumonia/ ALI/ARDS with severe hypoxia. 2. Drug overdose including cocaine, marijuana and Xanax. 3. Anoxic toxic encephalopathy 4. Possible aspiration pneumonia 5. Decreased urine output and acute kidney injury--improving 6. Shock. Status post fluid resuscitation. 7. ct head with no major events Plan . Started on Versed and morphine drip Dr. Horvath concerned about fever once patient retested SARS-CoV-2 I discussed the case with the nursing staff CODE: DNKASHIF PUENTES MD August 13, 2019 16:58
--- NOTE | 2019-08-13 17:17 | NUR ---
Spoke with family who stated they did not want any other doctors on the patients case other then Dr Link. Dr Link called and notified. He stated he would take over full care of the patient at this time. Will notify other doctors. Nurse Flat Screen Worker aware. Dr Link notified that the patient got extra morphine over the last two hours thru his PRISON LIBRARIAN. He stated as long as patient is comfortable that is fine, no new orders at this time. He stated that if the patient ever appeared uncomfortable to increase his versed dose by 1mg/hr as well as his morphine by 1 mg/hr until patient appeared comfortable to the staff/family. Patient, per family, appears to be in his "most comfortable state that he has been in during this stay" right now. Will continue to monitor. Per Evon De (nurse automotive tire testing supervisor), and management; patients uncle Qasim Fernandez is now the only person that is allowed to visit the patient. He must have his temp checked upon arrival to the building and must wear a mask when not in the room or when around staff. Once he arrives to the building the patients dad and step mother will be asked to leave.
--- NOTE | 2019-08-13 18:16 | NUR ---
Patients family refused suppository tylenol for patients temp today during this nurses shift
--- NOTE | 2019-08-13 22:40 | NUR ---
RN took pt. to [facility] at 2240. Hybrid Car Mechanic package with pt. and security was notified.
--- NOTE | 2019-08-14 00:47 | NUR ---
Pt.'s father used call light. This RN answered and was asked to go into room. Once RN entered, RN assessed pt. and he did not have a pulse. This RN asked SHARON Olea to verify at 1925. This RN called Dr. Link for update on pt. . Paper documentation was filled out and [facility] was called. This RN placed saline into patient's eyes to keep them ready for transplant. SHARON Noel (nursing supervisor mirror fabrication) called [facility] office to verify if pt. will be taken there first and they verified that he will be then will transfer to [place] after that. home was also called. Pt. was given a bed bath, placed in body bag and taken to [facility]. Addendum: 08/14/19 at 0251 by MERE VILLAFUERTE RN Morphine MIX CRUSHER OPERATOR, versed and fluids were disconnected when RN verified time of . 24ml of high dose Morphine MIX CRUSHER OPERATOR were wasted by this nurse with SHARON Kelley verifying.
== END 2019-08-13 19:25 | disposition expired | DRG 870 ==
LOC: EDBD 12:12 → CVICU 12:12 → 1 WEST ICU 08-08 22:48 → CVICU 08-09 14:21 → 4 NORTH 08-10 23:11
PROVIDERS: ADMIT Internal Medicine; ATTEND Internal Medicine
PROC: 5A1955Z Respiratory Ventilation, Greater than 96 Consecutive Hours (ICD-10-PCS; principal; 2019-08-04)
PROC: 5A12012 Performance of Cardiac Output, Single, Manual (ICD-10-PCS; 2019-08-04)
PROC: 0BH17EZ Insertion of Endotracheal Airway into Trachea, Via Natural or Artificial Opening (ICD-10-PCS; 2019-08-04)
PROC: 02HV33Z Insertion of Infusion Device into Superior Vena Cava, Percutaneous Approach (ICD-10-PCS; 2019-08-04)
DX: A41.9 Sepsis, unspecified organism (principal); J96.01 Acute respiratory failure with hypoxia; G92 Toxic encephalopathy; I21.4 Non-ST elevation (NSTEMI) myocardial infarction; J69.0 Pneumonitis due to inhalation of food and vomit; G93.1 Anoxic brain damage, not elsewhere classified; E87.0 Hyperosmolality and hypernatremia; E87.1 Hypo-osmolality and hyponatremia; N17.9 Acute kidney failure, unspecified; R57.9 Shock, unspecified; T42.4X1A Poisoning by benzodiazepines, accidental (unintentional), initial encounter; E16.2 Hypoglycemia, unspecified; E87.6 Hypokalemia; F12.10 Cannabis abuse, uncomplicated; F14.10 Cocaine abuse, uncomplicated; I10 Essential (primary) hypertension; I25.2 Old myocardial infarction; I46.9 Cardiac arrest, cause unspecified; I48.0 Paroxysmal atrial fibrillation; T40.5X1A Poisoning by cocaine, accidental (unintentional), initial encounter; Z51.5 Encounter for palliative care; Z82.49 Family history of ischemic heart disease and other diseases of the circulatory system; Z20.828 Contact with and (suspected) exposure to other viral communicable diseases; Z66 Do not resuscitate; Y92.89 Other specified places as the place of occurrence of the external cause
CPT/HCPCS: 36415; 36600; 70450; 71045; 80048; 80053; 80076; 81001; 82150; 82310; 82550; 82805; 82962; 82977; 83615; 83690; 83735; 84100; 84145; 84484; 85007; 85025; 85027; 85384; 85610; 85730; 86850; 86900; 86901; 87040; 87070; 87071; 87075; 87205; 87635; 93005; 93306; 94003; 95816; J1160; J1644; J1940; J1953; J2020; J2060; J2185; J2250; J2270; J2543; J2930; J3010; J3475; J3480; J3490; J7042; J7060; 99285-25; G0378